=== PATIENT | male | born 1945 | race Caucasian/White ===

== ENCOUNTER → 2016-07-13 | Outpatient (CLI) | payer OTHER ==
[~2016-07-13] MED LIST: ALBU1AER9 INH; ASPEC81 PO; ATOR-26 PO; CARV3.122 PO; LISI-461 PO; MCRK20 PO; NTRGSL4 SL; PRT40 PO; SYMIN/8045 INH
[2016-07-13 18:40] LABS: MEAN CELL VOLUME 92.6 fL (80-100); MEAN CORPUSCULAR HEMOGLOBIN 31.4 pg (25-34); MEAN CORPUSCULAR HGB CONC 33.9 g/dl (32-36); MEAN PLATELET VOLUME 10.7 fL (7.4-10.4); PLATELET COUNT 350 K/uL (130-400); RED BLOOD COUNT 4.75 M/uL (4.7-6.1); WHITE BLOOD COUNT 16.54 K/uL (4.8-10.8)
[2016-07-13 18:48] LABS: ALT/SGPT 26 U/L (12-78); BLOOD UREA NITROGEN 27 mg/dl (7-18); BUN/CREATININE RATIO 22.3 (10-20); CALCIUM 8.7 mg/dl (8.5-10.1); CARBON DIOXIDE 29 mmol/L (21-32); CHLORIDE 102 mmol/L (98-107); CHOLESTEROL 109 mg/dl (0-200); GLUCOSE 81 mg/dl (70-99); POTASSIUM 3.4 mmol/L (3.5-5.1); SODIUM 142 mmol/L (136-145)
[2016-07-13 18:59] LABS: ALB/GLOB RATIO 0.8 (0.9-2); ALKALINE PHOSPHATASE 45 U/L (45-117); AST/SGOT 18 U/L (15-37); CHOLESTEROL/HDL RATIO 3.2; HDL CHOLESTEROL 34 mg/dl; LDL CHOLESTEROL CALCULATED 28 mg/dl; TRIGLYCERIDES 237 mg/dl (0-150); VERY LOW DENSITY LIPOPROT CALC 47 mg/dl
[2016-07-14 05:56] LABS: ESTIMATED AVERAGE GLUCOSE 143 mg/dl; HA1C FLAG Normal (Normal)
== END | disposition home or self-care (01) ==
LOC: C.LABBFT 13:00
PROVIDERS: ATTEND Internal Medicine
DX: E11.21 Type 2 diabetes mellitus with diabetic nephropathy (principal)

== ENCOUNTER → 2016-07-24 | Outpatient (CLI) | payer OTHER ==
--- NOTE | 2016-07-24 15:03 | DIAGNOSTIC IMAGING REPORT ---
CHEST 2 VIEWS ROUTINE CLINICAL HISTORY: J45.909 Asthmatic [id number] COMPARISON STUDY: 02/02/2014 FINDINGS: The cardiac and mediastinal contours are normal. There is no evidence of focal pulmonary consolidation. There is no evidence of failure. No pleural effusions are visualized.[ IMPRESSION: No active disease in the chest. Electronically signed by: Fly Loya M.D. 07/24/2016 3:01 PM Dictated Date/Time: 07/24/2016 3:01 PM
== END | disposition home or self-care (01) ==
LOC: C.RAD1850 14:14
PROVIDERS: ATTEND Physician Assistant Medical
DX: J45.909 Unspecified asthma, uncomplicated (principal)

== ENCOUNTER → 2016-10-26 | Outpatient (CLI) | payer OTHER ==
[2016-10-26 17:44] LABS: BLOOD UREA NITROGEN 10 mg/dl (7-18); BUN/CREATININE RATIO 10.1 (10-20); CARBON DIOXIDE 29 mmol/L (21-32); CHLORIDE 103 mmol/L (98-107); GLUCOSE 187 mg/dl (70-99); POTASSIUM 3.5 mmol/L (3.5-5.1); SODIUM 140 mmol/L (136-145)
== END | disposition home or self-care (01) ==
LOC: C.LABBFT 11:57
PROVIDERS: ATTEND Internal Medicine
DX: E87.6 Hypokalemia (principal); I50.22 Chronic systolic (congestive) heart failure

== ENCOUNTER → 2017-02-01 | Outpatient (CLI) | payer OTHER ==
[2017-02-01 17:07] LABS: BASO % 0.5 %; BASO ABS # 0.05 K/uL (0-0.2); COMPLETE YES; EOS % 3.7 %; HEMATOCRIT 41.8 % (42-52); IG% 0.2 %; LYMPH % 23.7 %; LYMPH ABS # 2.41 K/uL (1.2-3.4); MEAN CELL VOLUME 93.5 fL (80-100); MEAN CORPUSCULAR HEMOGLOBIN 30.4 pg (25-34); MEAN CORPUSCULAR HGB CONC 32.5 g/dl (32-36); MEAN PLATELET VOLUME 10.6 fL (7.4-10.4); MONO % 9.7 %; NEUT % 62.2 %; PLATELET COUNT 293 K/uL (130-400); RED BLOOD COUNT 4.47 M/uL (4.7-6.1); WHITE BLOOD COUNT 10.15 K/uL (4.8-10.8)
[2017-02-01 17:19] LABS: ALT/SGPT 21 U/L (12-78); BLOOD UREA NITROGEN 16 mg/dl (7-18); BUN/CREATININE RATIO 16.4 (10-20); CALCIUM 8.8 mg/dl (8.5-10.1); CARBON DIOXIDE 28 mmol/L (21-32); CHLORIDE 104 mmol/L (98-107); CHOLESTEROL 113 mg/dl (0-200); GLUCOSE 126 mg/dl (70-99); MAGNESIUM 1.8 mg/dl (1.8-2.4); POTASSIUM 4.3 mmol/L (3.5-5.1); SODIUM 139 mmol/L (136-145); TRIGLYCERIDES 262 mg/dl (0-150); VERY LOW DENSITY LIPOPROT CALC 52 mg/dl
[2017-02-01 17:23] LABS: ALB/GLOB RATIO 0.9 (0.9-2); ALKALINE PHOSPHATASE 50 U/L (45-117); AST/SGOT 20 U/L (15-37); CHOLESTEROL/HDL RATIO 3.6; HDL CHOLESTEROL 31 mg/dl; LDL CHOLESTEROL CALCULATED 30 mg/dl
[2017-02-01 17:41] LABS: RATIO 12.8 mcg/mg (0-30.0)
== END | disposition home or self-care (01) ==
LOC: C.LABBFT 11:52
PROVIDERS: ATTEND Internal Medicine Cardiovascular Disease
DX: E11.21 Type 2 diabetes mellitus with diabetic nephropathy (principal); I25.10 Atherosclerotic heart disease of native coronary artery without angina pectoris; E83.42 Hypomagnesemia; Z12.5 Encounter for screening for malignant neoplasm of prostate

== ENCOUNTER → 2017-08-09 | Outpatient (CLI) | payer OTHER ==
[~2017-08-09] MED LIST changes: -ASPEC81 PO; +ASPI-320 PO
[2017-08-09 16:38] LABS: BASO % 0.5 %; BASO ABS # 0.04 K/uL (0-0.2); EOS % 5.8 %; EOS ABS # 0.48 K/uL (0-0.5); HEMATOCRIT 41.4 % (42-52); HEMOGLOBIN 13.9 g/dL (14.0-18.0); IG# 0.02 K/uL (0.00-0.02); LYMPH % 23.3 %; LYMPH ABS # 1.93 K/uL (1.2-3.4); MEAN CELL VOLUME 92.2 fL (80-100); MEAN CORPUSCULAR HGB CONC 33.6 g/dl (32-36); MONO % 10.7 %; MONO ABS # 0.89 K/uL (0.11-0.59); NEUT % 59.5 %; NEUT ABS # 4.93 K/uL (1.4-6.5); PLATELET COUNT 301 K/uL (130-400); RED CELL DISTRIBUTION WIDTH CV 13.1 % (11.5-14.5); RED CELL DISTRIBUTION WIDTH SD 44.1 fL (36.4-46.3); WHITE BLOOD COUNT 8.29 K/uL (4.8-10.8)
[2017-08-09 16:46] LABS: ALBUMIN 3.4 gm/dl (3.4-5.0); ALT/SGPT 31 U/L (12-78); AST/SGOT 20 U/L (15-37); BLOOD UREA NITROGEN 10 mg/dl (7-18); CALCIUM 8.6 mg/dl (8.5-10.1); CARBON DIOXIDE 33 mmol/L (21-32); CREATININE 1.04 mg/dl (0.60-1.40); GLUCOSE 183 mg/dl (70-99); POTASSIUM 3.7 mmol/L (3.5-5.1); SODIUM 138 mmol/L (136-145)
[2017-08-09 16:57] LABS: ALKALINE PHOSPHATASE 58 U/L (45-117); CHOLESTEROL 99 mg/dl (0-200); LDL CHOLESTEROL CALCULATED 29 mg/dl; TOTAL PROTEIN 7.5 gm/dl (6.4-8.2)
[2017-08-10 06:17] LABS: HEMOGLOBIN A1C 7.3 % (4.5-5.6)
== END | disposition home or self-care (01) ==
LOC: C.LABBFT 13:21
PROVIDERS: ATTEND Internal Medicine
DX: D64.9 Anemia, unspecified (principal); E11.21 Type 2 diabetes mellitus with diabetic nephropathy; I25.10 Atherosclerotic heart disease of native coronary artery without angina pectoris

== ENCOUNTER 2024-04-05 13:54 | Inpatient (IN) ==
[2024-04-05] MEDS: SODIUM CHLORIDE 0.9% 1,000 ML IV ONE (14:05)
--- NOTE | 2024-04-05 14:08 | Emergency Department Note ---
History of Present Illness General Chief Complaint: Heart Alert Stated Complaint: POST CARDIAC ARREST Time Seen by Provider: 04/05/24 13:57 History of Present Illness Provider complaint: found unresponsive and stopped breathing Onset (ago): minute(s) 45 Timing confirmed by: other Place: other (car) Bystander CPR performed: Yes AED applied by bystander/blower and compressor assembler: Yes Shock advised: Yes Initial findings in the field: unresponsive ROSC in the field: Yes Associated injuries: No Known history of: CAD Treatments prior to arrival: intubation, chest compressions, defibrillated shocks # (3) and amiodarone (150 bolus) Patient was found unresponsive in his car 45 minutes ago. Bystander started CPR immediately. EMS was called. 3 defibrillations were given and amiodarone 150 mg was given. ROSC was achieved. Patient was intubated. Home Medications Medication Instructions Recorded Confirmed Type fluticasone furoate 200 1 inh inhalation Q24H 90 days #180 08/05/23 03/23/24 Rx mcg-vilanterol 25 mcg/dose ea inhalation powder (Breo Ellipta) warfarin 5 mg tablet 5 mg PO .COMPLEX #90 tabs 09/29/23 03/23/24 Rx warfarin 7.5 mg tablet 7.5 mg PO .weekly #50 tabs 09/29/23 03/23/24 Rx glimepiride 2 mg tablet 2 mg PO BID 90 days #180 tabs 12/07/23 03/23/24 Rx furosemide 40 mg tablet (Lasix) 40 mg PO QAM 12/28/23 03/23/24 History Cranberry Extra Strength 15,000 mg PO QAM 12/31/23 03/23/24 History aspirin 81 mg tablet,delayed 81 mg PO QAM 12/31/23 03/23/24 History release levothyroxine 50 mcg tablet 50 mcg PO QAM 12/31/23 03/23/24 History (Synthroid) magnesium oxide 500 mg PO BID 12/31/23 03/23/24 History metoprolol succinate 50 mg 50 mg PO QAM 12/31/23 03/23/24 History tablet,extended release 24 hr omeprazole 40 mg capsule,delayed 40 mg PO DAILY PRN Acid Reflux 12/31/23 03/23/24 History release atorvastatin 80 mg tablet (Lipitor) 80 mg PO QPM #90 tabs 03/07/24 03/23/24 Rx potassium chloride 10 mEq See Rx Instructions PO DAILY PRN 03/07/24 03/23/24 Rx tablet,extended release (Klor-Con) Heart Rate #90 tabs Allergies Allergy/AdvReac Type Severity Reaction Status Date / Time pollen extracts Allergy Intermediate Itchy/Watery Verified 03/23/24 14:18 Eyes/Congestion wool Allergy Intermediate Nasal Verified 03/23/24 14:18 Congestion; sneezing amoxicillin [From Augmentin] AdvReac Intermediate Diarrhea Verified 03/23/24 14:18 clavulanic acid AdvReac Intermediate Diarrhea Verified 03/23/24 14:18 [From Augmentin] lisinopril AdvReac Intermediate Cough/Light Verified 03/23/24 14:18 Headed Past Med/Surg History Problem List (Updated 04/05/24 @ 17:28 by Joao Bhat MD) Cardiac arrest (Acute) Unresponsive Metabolic acidosis Cardiac arrest Rhinitis medicamentosa Liposarcoma of peritoneum Otomycosis Right inguinal hernia Renal cyst, left Right groin mass Heart disease COPD (chronic obstructive pulmonary disease) HFrEF (heart failure with reduced ejection fraction) Otitis externa BPPV (benign paroxysmal positional vertigo) Direct inguinal hernia of right side Anemia (Acute) Asthma (Acute) Diabetic nephropathy (Acute) Diabetic retinopathy (Acute) Microalbuminuria (Acute) Mitral regurgitation (Acute) PAD (peripheral artery disease) (Chronic) Pulmonary hypertension (Acute) Hypomagnesemia Hypertension Ischemic cardiomyopathy Chronic systolic heart failure Hypothyroidism (Chronic) 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) Hyperlipidemia (Chronic) Coronary artery disease (Chronic) Anticoagulated on warfarin Pulmonary embolism Medical History PAD (peripheral artery disease) Hypothyroidism HTN (hypertension) CAD (coronary artery disease) COPD (chronic obstructive pulmonary disease) Type 2 diabetes mellitus Chronic systolic heart failure [facility] Asthma Anticoagulated on warfarin History of anemia Bronchitis Thromboembolism of lower extremity artery Toe infection hx Embolism, arterial, leg, right Surgical History History of orchiectomy (01/12/24) Robotic Assisted Laparoscopic Incarcerated Right Inguinal Hernia Repair Converted to Open, Right Orchiectomy(Right) - Russell Hoang, DO, FACS H/O right inguinal hernia repair (01/12/24) Robotic Assisted Laparoscopic Incarcerated Right Inguinal Hernia Repair Converted to Open, Right Orchiectomy(Right) - Russell Hoang, DO, FACS Hx of oral surgery Teeth removed Hx of cardiac catheterization 2013 Deep vein blood clot of right lower extremity hx Thromboendarterectomy preformed in 2003 [facility] Family History Father Congestive heart failure (CHF) Pancreatic adenocarcinoma Permanent atrial fibrillation Emphysema of lung Brother Asthma Mother No problems noted. Other Clotting disorder Diabetes Denies family history of Prostate cancer Colorectal cancer Social History Smoking Status: Unknown if ever smoked Tobacco Type: Smokeless Tobacco (Dip or Chew) Second Hand Exposure: No; Do You Dip or Chew Tobacco: Yes (Advised); Hx Alcohol Use: No Hx Substance Use: No Preferred Language: Vietnamese Communication Ability: Effective Visual Impairment: No Limitations Hearing Ability: Normal Research Development Director Required: No Beliefs That Will Affect Care: None marital status: Current Living Situation: Alone current occupational status: retired Feels Safe at Home: Yes Childhood Exposure to Second-Hand Smoke: No Diet: low carbohydrate caffeine: Yes during the past year weight has: remained stable Seatbelt Use: always Sunscreen Use: No Assistive Devices: Glasses and Other Physical Exam 2 Vital Signs: Vital Signs - 24 hr 04/05/24 13:58 04/05/24 14:05 Pulse Rate 91 H 88 Respiratory Effort / Characteristics Mechanically Venti lated Blood Pressure 97/74 L Blood Pressure Lupe n 81 Pulse Oximetry 100 Oxygen Delivery Me thod Mechanical Vent Sepsis New/Unexpla ined Change in Men favian Status N/A Sepsis Action Take n by Nursing No Action Required Physical Exam: Physical Exam GENERAL: Intubated. HENT: Exam performed. - Head: Normocephalic and atraumatic. CV: Normal rate, regular rhythm, normal heart sounds and intact distal pulses. There is no peripheral edema. Palpable radial pulses bue. PULM/CHEST: Rhonchi bilaterally. ABD: The abdomen is soft. There is no tenderness. Course Course 1350: Received a call from EMS that a patient was found unresponsive received 3 shocks and now has ROSC. Heart alert called. 1357: The patient was evaluated in room B1. A complete history and physical exam was performed Cardiac monitoring: An order was placed for continuous cardiac monitoring. The monitor shows a rate of 90 with sinus rhythm interpreted by me 1410: Vital signs stable on ventilator. Dr. Carlton at bedside. Dr. Carlton and I decided that we will take the patient to CT to rule out ICH and if that is negative would send them to Distributor Operator. Dr. Carlton recommends amiodarone drip for the patient. 1421: CT of the head viewed by me shows no ICH. Patient be sent to Distributor Operator. Administered Medications Sodium Chloride (Nss) 1,000 mls @ 999 mls/hr IV .Q1H1M ONE Stop: 04/05/24 15:02 Last Admin: 04/05/24 14:05 Dose: 999 mls/hr Documented By: PADDY Medical Decision Making Laboratory Data Attestation: I reviewed the patient's lab results. 04/05/24 14:04 04/05/24 16:28 Imaging Data Attestation: I personally reviewed and interpreted this imaging study as follows: My Impression: CT head: No ICH Chest x-ray: Endotracheal tube in place. Radiologist's Impression: Chest X-Ray 04/05/24 13:58 XR chest 1V portable HISTORY: 78 years-old Male rosc acute respiratory failure COMPARISON: 01/05/2024 TECHNIQUE: Supine AP view of the chest FINDINGS: Endotracheal tube overlies the midline, 5.7 cm superior to the indira. The cardiac silhouette is mildly enlarged. Lungs appear clear. No pneumothorax, pleural effusion or airspace consolidation. The bones appear grossly intact. IMPRESSION: 1. Endotracheal tube terminates 5.7 cm superior to the indira. 2. The lungs appear clear. 3. No pneumothorax. ACT 112: Negative or not required by law. The above report was generated using voice recognition software. It may contain grammatical, syntax or spelling errors. Electronically signed by: Dario Hung M.D. 04/05/2024 2:[address] 04/05/24 13:59 CT OF THE HEAD WITHOUT CONTRAST CLINICAL HISTORY: code blue COMPARISON STUDY: No previous studies for comparison. CT DOSE: 713.21 mGy.cm TECHNIQUE: Helical axial images of the head were obtained without IV contrast. Automated exposure control was utilized for the study. A dose lowering technique was utilized adhering to the principles of ALARA. FINDINGS: No acute intracranial hemorrhage, midline shift or mass effect is present. The ventricular system is unremarkable. The basal cisterns are patent. No extra-axial collections are present. There are no findings to suggest acute dural sinus thrombosis or acute territorial infarct. Several hypodensities within the bilateral cerebellar hemispheres measuring up to 1.6 cm favor old infarcts. There is a small amount of fluid within the bilateral masters cells. There are no calvarial fractures. There is minimal sinus mucosal thickening. IMPRESSION: 1. No acute intracranial findings. 2. 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 ACT 112: Negative or not required by law. Electronically signed by: Jose Garvey M.D. 04/05/2024 2:37 PM ECG Data Attestation: I personally reviewed and interpreted this ECG as follows: Additional Comments: Sinus rhythm with rate of 91. SD QRS and QTc intervals within normal limits. No ST elevation or ST depression. [facility] Narrative 1350: Received a call from EMS that a patient was found unresponsive received 3 shocks and now has ROSC. Heart alert called. 1357: The patient was evaluated in room B1. A complete history and physical exam was performed Cardiac monitoring: An order was placed for continuous cardiac monitoring. The monitor shows a rate of 90 with sinus rhythm interpreted by me 1410: Vital signs stable on ventilator. Dr. Carlton at bedside. Dr. Carlton and I decided that we will take the patient to CT to rule out ICH and if that is negative would send them to Distributor Operator. Dr. Carlton recommends amiodarone drip for the patient. 1421: CT of the head viewed by me shows no ICH. Patient be sent to Distributor Operator. Impression & Plan Cardiac arrest Critical Care Time Critical Care Time: Yes Total Critical Care Time: 35 I have personally spent greater than 35 minutes of critical care time in the direct management of this patient. This includes bedside care, interpretation of diagnostic studies, and testing, discussion with consultants, patient, and family members, and other required patient management activities. This 35 minutes is in excess of all separately billable procedures. Discharge Plan Visit Data Chief Complaint: Heart Alert Stated Complaint: POST CARDIAC ARREST ED Provider: Joao Bhat Discharge Problem: Cardiac arrest Patient Disposition: Admitted As Inpatient Discharge Instructions Interventions: ED Discharge Assessment Last Done: 04/05/24 14:35
[2024-04-05] MEDS ORDERED: 0.2 MICRON FILTER SET 1 EACH IV ONE ×2 (14:09→19:40)
[2024-04-05] MEDS: AMIODARONE / D5W 360 MG/200 ML BAG IV ONE (14:12)
[2024-04-05 14:18] LABS: iSTAT Creatinine 1.2 mg/dl (0.6-1.3); iSTAT Hemoglobin 14.6 g/dl (14.0-18.0); iSTAT Ionized Calcium 1.09 mmol/l (1.12-1.32); iSTAT Potassium 3.4 mmol/L (3.3-5.0)
[2024-04-05 14:18] LABS: Hematocrit (blood only) 41.2 % (42.0-52.0); Hemoglobin 13.7 g/dl (14.0-18.0); Mean Corpuscular Hemoglobin 30.3 pg (25.0-34.0); Mean Corpuscular Hgb Conc 33.3 g/dL (32.0-36.0); Mean Corpuscular Volume 91.2 fL (80.0-100.0); Mean Platelet Volume 9.9 fL (9.4-12.4); Platelet Count 263 K/uL (130-400); RDW Coefficient of Variation 12.2 % (11.5-14.5); RDW Standard Deviation 40.8 fL (36.4-46.3); Red Blood Count 4.52 M/uL (4.70-6.10); White Blood Count 12.64 K/ul (4.8-10.8)
[2024-04-05 14:19] LABS: Base Excess VBG -7.9 mEq/L; HCO3 VBG 20 mmol/L; Oxygen Saturation VBG 89.6 %; PCO2 VBG 47 mmHg (38-50); PO2 VBG 63 mmHg; pH VBG 7.23 (7.36-7.41)
--- NOTE | 2024-04-05 14:22 | XRay Report ---
XR chest 1V portable HISTORY: 78 years-old Male rosc acute respiratory failure COMPARISON: 01/05/2024 TECHNIQUE: Supine AP view of the chest FINDINGS: Endotracheal tube overlies the midline, 5.7 cm superior to the indira. The cardiac silhouette is mild ly enlarged. Lungs appear clear. No pneumothorax, pleural effusion or airspace consolidation. The bon es appear grossly intact. IMPRESSION: 1. Endotracheal tube terminates 5.7 cm superior to the indira. 2. The lungs appear clear. 3. No pneumothorax. ACT 112: Negative or not required by law. The above report was generated using voice recognition software. It may contain grammatical, syntax o r spelling errors. Electronically signed by: Dario Hung M.D. 04/05/2024 2:21 PM
--- NOTE | 2024-04-05 14:32 | History & Physical Report ---
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 unresponsive post-cath Unclear eitology head CT negative for acute changes, did show suspected small old infarcts within bilateral cerebral hemispheres EKG showed concern for inferior ST elevation, but no significant ST abnormalities, new RBBB CXR negative for acute findings - lactate 7.3 -> 3.2 - leukocytosis (WBC 12.64) with left shift - troponin 75.5 -> trend - cardiac cath showed unchanged severe three-vessel CAD preserved cardiac output with minimally elevated right and left filling pressures on right heart cath - CAD chronic and no targets for PCI, consider CABG - admit to ICU and cardiology following - TSH, ammonia, drug screen, UA, blood cultures ordered - maintain MAPs > 65 - continue amiodarone and repeat echo as per cardiology recommendations - concern for seizure like activity - Ativan, EEG, and MRI ordered (2) Unresponsive: Plan: secondary to #1 - concern for seizure like activity - 2mg IV Ativan ordered post cath - EEG and MRI ordered (3) Metabolic acidosis: Plan: - VBG 7.23/47/20 - ABG 7.32/42/22 - lactate 7.3 -> 3.2 - anion gap 13 - tx above (4) Ischemic cardiomyopathy: Plan: Severe multivessel CAD s/p thromboendarterectomy 2002 - cardiac cath 2013 showed proximal LAD 50 to 60% with proximal to mid LAD 100%, D1 70%, D3 occluded, large septal agent based modeler with 80% proximal stenosis, proximal circumflex with sequential 98% stenotic lesions, AV groove circumflex 100%, proximal RCA 99% - Echo 2022 showing moderately dilated left ventricle with severely reduced systolic function, EF 25 to 30%, akinesis of mid and inferior lateral wall, global hypokinesis, mild LVH, mild mitral regurg - repeat cath showed unchanged CAD, no emergent need for PCI, cardiology recommending future CABG - on Coumadin, metoprolol, atorvastatin 80 mg at home; held (5) HFrEF (heart failure with reduced ejection fraction): Plan: see echo above - hold Lasix and Jardiance (6) Hypertension: Plan: currently hypotensive with above - Hold home hypertension medications (7) 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: Plan: Controlled on Jardiance at home - Most recent A1C 8.1 - SSI with target BSG range 110-140mg/dL, CF 25, carb ratio 8 - BSG ACHS if eating, q6h if npo Plan Chronic stable diagnoses: Hypothyroidism - recent TSH WNL, hold levothyroxine liposarcoma - s/p right inguinal hernia repair 01/2024, oncology follow up VTE ppx: likely to start Heparin drip tomorrow 04/06 Diet: NPO as unresponsive Dispo: ICU post cath - Unable to reach patient's family/friends. One friend in chart, tried to call and straight to voicemail. Admission and Anticipated Discharge Date Admission Date: 04/05/24 History of Present Illness Chief Complaint: heart alert Primary Care Provider: Suleman Wren DO Patient is a 78-year-old male with a past medical history of HFrEF, ischemic cardiomyopathy, severe multivessel CAD, PAD, mitral regurg, hypertension, type II DM, BPPV, hypothyroidism, newly diagnosed liposarcoma. He presents today via EMS after he was found unresponsive in his car; after CPR, 3 shocks, intubation, and 150mg amiodarone. He was brought in post ROSC as a heart alert, taken to CT (head CT negative), and then taken immediately to the Dialysis Patient Care Technician. Patient was assessed in the ICU after cardiac cath, no PCI placement. He is on ventilator, unresponsive. Pupils are pinpoint, no gag reflex, posturing. Discussed with software technical lead, to complete seizure workup, 2 Mg Ativan ordered. Patient has no family listed in chart, only a friend listed. Attempted to contact and went straight to voicemail, unable to reach. Allergies Allergy/AdvReac Type Severity Reaction Status Date / Time pollen extracts Allergy Intermediate Itchy/Watery Verified 03/23/24 14:18 Eyes/Congestion wool Allergy Intermediate Nasal Verified 03/23/24 14:18 Congestion; sneezing amoxicillin [From Augmentin] AdvReac Intermediate Diarrhea Verified 03/23/24 14:18 clavulanic acid AdvReac Intermediate Diarrhea Verified 03/23/24 14:18 [From Augmentin] lisinopril AdvReac Intermediate Cough/Light Verified 03/23/24 14:18 Headed Home Medications Medication Instructions Recorded Confirmed Type fluticasone furoate 200 1 inh inhalation Q24H 90 days #180 08/05/23 03/23/24 Rx mcg-vilanterol 25 mcg/dose ea inhalation powder (Breo Ellipta) warfarin 5 mg tablet 5 mg PO .COMPLEX #90 tabs 09/29/23 03/23/24 Rx warfarin 7.5 mg tablet 7.5 mg PO .weekly #50 tabs 09/29/23 03/23/24 Rx glimepiride 2 mg tablet 2 mg PO BID 90 days #180 tabs 12/07/23 03/23/24 Rx furosemide 40 mg tablet (Lasix) 40 mg PO QAM 12/28/23 03/23/24 History Cranberry Extra Strength 15,000 mg PO QAM 12/31/23 03/23/24 History aspirin 81 mg tablet,delayed 81 mg PO QAM 12/31/23 03/23/24 History release levothyroxine 50 mcg tablet 50 mcg PO QAM 12/31/23 03/23/24 History (Synthroid) magnesium oxide 500 mg PO BID 12/31/23 03/23/24 History metoprolol succinate 50 mg 50 mg PO QAM 12/31/23 03/23/24 History tablet,extended release 24 hr omeprazole 40 mg capsule,delayed 40 mg PO DAILY PRN Acid Reflux 12/31/23 03/23/24 History release atorvastatin 80 mg tablet (Lipitor) 80 mg PO QPM #90 tabs 03/07/24 03/23/24 Rx potassium chloride 10 mEq See Rx Instructions PO DAILY PRN 03/07/24 03/23/24 Rx tablet,extended release (Klor-Con) Heart Rate #90 tabs Past Med/Surg History Problem List (Updated 04/05/24 @ 17:28 by Joao Bhat MD) Cardiac arrest (Acute) Unresponsive Metabolic acidosis Cardiac arrest Rhinitis medicamentosa Liposarcoma of peritoneum Otomycosis Right inguinal hernia Renal cyst, left Right groin mass Heart disease COPD (chronic obstructive pulmonary disease) HFrEF (heart failure with reduced ejection fraction) Otitis externa BPPV (benign paroxysmal positional vertigo) Direct inguinal hernia of right side Anemia (Acute) Asthma (Acute) Diabetic nephropathy (Acute) Diabetic retinopathy (Acute) Microalbuminuria (Acute) Mitral regurgitation (Acute) PAD (peripheral artery disease) (Chronic) Pulmonary hypertension (Acute) Hypomagnesemia Hypertension Ischemic cardiomyopathy Chronic systolic heart failure Hypothyroidism (Chronic) 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) Hyperlipidemia (Chronic) Coronary artery disease (Chronic) Anticoagulated on warfarin Pulmonary embolism Medical History PAD (peripheral artery disease) Hypothyroidism HTN (hypertension) CAD (coronary artery disease) COPD (chronic obstructive pulmonary disease) Type 2 diabetes mellitus Chronic systolic heart failure [facility] Asthma Anticoagulated on warfarin History of anemia Bronchitis Thromboembolism of lower extremity artery Toe infection hx Embolism, arterial, leg, right Surgical History History of orchiectomy (01/12/24) Robotic Assisted Laparoscopic Incarcerated Right Inguinal Hernia Repair Converted to Open, Right Orchiectomy(Right) - Russell Hoang DO, FACS H/O right inguinal hernia repair (01/12/24) Robotic Assisted Laparoscopic Incarcerated Right Inguinal Hernia Repair Converted to Open, Right Orchiectomy(Right) - Russell Hoang DO, FACS Hx of oral surgery Teeth removed Hx of cardiac catheterization 2013 Deep vein blood clot of right lower extremity hx Thromboendarterectomy preformed in 2003 [facility] Family History Father Congestive heart failure (CHF) Pancreatic adenocarcinoma Permanent atrial fibrillation Emphysema of lung Brother Asthma Mother No problems noted. Other Clotting disorder Diabetes Denies family history of Prostate cancer Colorectal cancer Social History Smoking Status: Unknown if ever smoked Tobacco Type: Smokeless Tobacco (Dip or Chew) Second Hand Exposure: No; Do You Dip or Chew Tobacco: Yes (Advised); Preferred Language: Portuguese Communication Ability: intubated Visual Impairment: No Limitations Hearing Ability: Normal Warning Analyst Required: No Beliefs That Will Affect Care: None marital status: Current Living Situation: Alone Current Living Situation Comment: unable to assess at this time current occupational status: retired Feels Safe at Home: Yes Childhood Exposure to Second-Hand Smoke: No Diet: low carbohydrate caffeine: Yes during the past year weight has: remained stable Seatbelt Use: always Sunscreen Use: No Assistive Devices: Glasses and Other Review of Systems Review of Systems: Unable to obtain as patient is unresponsive Physical Exam Physical Exam: The patient is unresponsive, on ventilator. Withdrawals to painful stimuli. Constitutional: + mechanically ventilated Eyes: + pinpoint pupils Results & Data Results & Data Vital Signs (Past 12 Hours) Vital Signs Temp Pulse Pulse Resp BP BP Pulse Ox 04/05/24 14:30 04/05/24 14:27 80 22 89/56 L 100 04/05/24 14:15 79 21 100/62 100 04/05/24 14:05 88 04/05/24 13:58 36.4 C 91 H 20 97/74 L 100 O2 Del Method 04/05/24 14:30 Mechanical Vent 04/05/24 14:27 Mechanical Vent 04/05/24 14:15 Mechanical Vent 04/05/24 14:05 04/05/24 13:58 Mechanical Vent Code Status & VTE Plan VTE Prophylaxis Plan VTE Prophylaxis will be ordered: Yes Supervising Physician Co-Signing Physician Notes Patient seen and examined, chart reviewed, case discussed with Leann Burns PA-C and I agree with the assessment and plan as above except as otherwise noted Labs and images reviewed Charly is a 78-year-old male with past medical history of multivessel CAD, ischemic cardiomyopathy 25-30%, type II DM who had a witnessed arrest [id number] while at the 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 Had immediate bystander CPR, AED was applied with 3 shocks, intubated in the field and arrived in sinus rhythm post ROSC. Patient was taken emergently to the Dialysis Patient Care Technician as a heart alert. Prior cath 2013: EF less than 20%, 50-60% proximal LAD, proximal to mid LAD 100%, mid to distal LAD filling via collaterals, D1 70%, D3 occluded, large septal agent based modeler with 80% proximal stenosis, proximal circumflex with 98% stenotic lesions, AV groove circumflex 100% filling via collaterals, dominant RCA, proximal RCA 99% with [id number] collaterals, LVEDP 37 mmHg, PA pressure 74/38 mean 50 at the time. EF remained significantly reduced although slightly improved on goal-directed medical therapy on subsequent follow-up.Seen at the bedside. History is limited due to ETT and cognitive status. Patient with some twitching of the lower extremities concerning for seizure activity for which she received 2 mg of Ativan. Patient seen at bedside during EEG, no overt epileptiform activity noted. Cardiac cath showed severe three-vessel disease unchanged on repeat cath, no targets for PCI. Potential CABG candidate pending clinical progression. Appreciate cardiology care and recommendations. Agree with recommendations and management as above. PG Care Time/CCT Total # of Minutes Spent Total Time Spent with Patient: Total time spent is greater than 50% in coordination of care (as documented) at patient's floor/unit and/or counseling patient: Coding Level of Care Code 64710 INT INP/OBS CARE 3/75MIN Diagnoses Cardiac arrest I46.9 Unresponsive R41.89 Metabolic acidosis E87.20 Ischemic cardiomyopathy I25.5 HFrEF (heart failure with reduced ejection fraction) I50.20 Hypertension I10 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 E11.59
--- NOTE | 2024-04-05 14:37 | Cardiology Consultation ---
Date of Consultation April 05, 2024 Assessment & Plan (1) Cardiac arrest: 2. Chronic multivessel CAD 3. ICM EF 25% 4. 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 Liposarcoma 6. Concern for anoxic brain injury Severe three-vessel CAD unchanged on repeat cardiac catheterization today. Hemodynamics favorable with preserved cardiac output and only minimally elevated right and left filling pressures on right heart cath. CAD is chronic and no targets for PCI. Pending clinical course reevaluation for CABG could be considered. For now supportive care from a cardiac standpoint. Continue amiodarone infusion. Trend troponin, repeat echo in the morning. History of Present Illness History of Present Illness Mr. Tsai is a 78-year-old man with a history of severe, unrevascularized mult ivessel CAD, ischemic cardiomyopathy EF 25-30%/HFrEF, type 2 diabetes seen emergently in the ED after [id number] arrest. Per report from ED physician patient had witnessed arrest at 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 Reportedly had immediate bystander CPR and received 3 defibrillations from AED before ROSC. Intubated in the field. There was concern for inferior ST elevation on ECG in the field but on arrival no significant ST abnormalities, does have new right bundle branch block. Systolic pressures 80s to 90s. Chest x-ray clear. Head CT with no obvious intracranial bleeding. Other medical issues include recently diagnosed liposarcoma requiring strangulated right inguinal hernia repair 01/2024, awaiting further oncology management. Prior right lower extremity arterial thrombus in 2002 requiring vascular surgery and on chronic anticoagulation with Coumadin. Has mild mitral regurgitation, dyslipidemia, COPD. Allergies Allergy/AdvReac Type Severity Reaction Status Date / Time pollen extracts Allergy Intermediate Itchy/Watery Verified 03/23/24 14:18 Eyes/Congestion wool Allergy Intermediate Nasal Verified 03/23/24 14:18 Congestion; sneezing amoxicillin [From Augmentin] AdvReac Intermediate Diarrhea Verified 03/23/24 14:18 clavulanic acid AdvReac Intermediate Diarrhea Verified 03/23/24 14:18 [From Augmentin] lisinopril AdvReac Intermediate Cough/Light Verified 03/23/24 14:18 Headed Home Medications Medication Instructions Recorded Confirmed Type fluticasone furoate 200 1 inh inhalation Q24H 90 days #180 08/05/23 03/23/24 Rx mcg-vilanterol 25 mcg/dose ea inhalation powder (Breo Ellipta) warfarin 5 mg tablet 5 mg PO .COMPLEX #90 tabs 09/29/23 03/23/24 Rx warfarin 7.5 mg tablet 7.5 mg PO .weekly #50 tabs 09/29/23 03/23/24 Rx glimepiride 2 mg tablet 2 mg PO BID 90 days #180 tabs 12/07/23 03/23/24 Rx furosemide 40 mg tablet (Lasix) 40 mg PO QAM 12/28/23 03/23/24 History Cranberry Extra Strength 15,000 mg PO QAM 12/31/23 03/23/24 History aspirin 81 mg tablet,delayed 81 mg PO QAM 12/31/23 03/23/24 History release levothyroxine 50 mcg tablet 50 mcg PO QAM 12/31/23 03/23/24 History (Synthroid) magnesium oxide 500 mg PO BID 12/31/23 03/23/24 History metoprolol succinate 50 mg 50 mg PO QAM 12/31/23 03/23/24 History tablet,extended release 24 hr omeprazole 40 mg capsule,delayed 40 mg PO DAILY PRN Acid Reflux 12/31/23 03/23/24 History release atorvastatin 80 mg tablet (Lipitor) 80 mg PO QPM #90 tabs 03/07/24 03/23/24 Rx potassium chloride 10 mEq See Rx Instructions PO DAILY PRN 03/07/24 03/23/24 Rx tablet,extended release (Klor-Con) Heart Rate #90 tabs Patient History Medical History PAD (peripheral artery disease) Hypothyroidism HTN (hypertension) CAD (coronary artery disease) COPD (chronic obstructive pulmonary disease) Type 2 diabetes mellitus Chronic systolic heart failure [facility] Cardiology Asthma Anticoagulated on warfarin History of anemia Bronchitis Thromboembolism of lower extremity artery Toe infection hx Embolism, arterial, leg, right Surgical History History of orchiectomy (01/12/24) Robotic Assisted Laparoscopic Incarcerated Right Inguinal Hernia Repair Converted to Open, Right Orchiectomy(Right) - Russell Hoang DO, FACS H/O right inguinal hernia repair (01/12/24) Robotic Assisted Laparoscopic Incarcerated Right Inguinal Hernia Repair Converted to Open, Right Orchiectomy(Right) - Russell Hoang DO, FACS Hx of oral surgery Teeth removed Hx of cardiac catheterization 2013 Deep vein blood clot of right lower extremity hx Thromboendarterectomy preformed in 2003 [facility] Family History Father Congestive heart failure (CHF) Pancreatic adenocarcinoma Permanent atrial fibrillation Emphysema of lung Brother Asthma Mother No problems noted. Other Clotting disorder Diabetes Denies family history of Prostate cancer Colorectal cancer Social History Smoking Status: Unknown if ever smoked Tobacco Type: Smokeless Tobacco (Dip or Chew) Second Hand Exposure: No; Do You Dip or Chew Tobacco: Yes (Advised); Preferred Language: Danish Communication Ability: intubated Visual Impairment: No Limitations Hearing Ability: Normal Locker Attendant Required: No Beliefs That Will Affect Care: None marital status: Current Living Situation: Alone Current Living Situation Comment: unable to assess at this time current occupational status: retired Feels Safe at Home: Yes Childhood Exposure to Second-Hand Smoke: No Diet: low carbohydrate caffeine: Yes during the past year weight has: remained stable Seatbelt Use: always Sunscreen Use: No Assistive Devices: Glasses and Other Review of Systems Review of Systems: Unobtainable due to endotracheal tube Physical Exam Constitutional: + mechanically ventilated Eyes: + anicteric sclerae Respiratory: Auscultation: lungs clear to auscultation bilaterally Cardiovascular: Rate/Rhythm: regular rate Heart Sounds: no murmur Vessels: femoral pulses present Gastrointestinal (Abdomen): Inspection/Auscultation: abdomen normal to inspection Percussion/Palpation: abdomen soft Skin: no rashes, warm and dry Neurologic: + obtunded Psychiatric: Unresponsive Results & Data Vital Signs (Past 12 Hours) Vital Signs Temp Pulse Resp BP Pulse Ox O2 Del Method 04/05/24 14:05 88 04/05/24 13:58 97.6 F 91 H 20 97/74 L 100 Mechanical Vent PG Care Time/CCT Total # of Minutes Spent Total Time Spent with Patient: Total time spent is greater than 50% in coordination of care (as documented) at patient's floor/unit and/or counseling patient: Coding Level of Care Code 77049 ER DEPT VISIT HIGH LVL 5 Diagnoses Cardiac arrest I46.9
--- NOTE | 2024-04-05 14:40 | CT Scan Report ---
CT OF THE HEAD WITHOUT CONTRAST CLINICAL HISTORY: code blue COMPARISON STUDY: No previous studies for comparison. CT DOSE: 713.21 mGy.cm TECHNIQUE: Helical axial images of the head were obtained without IV contrast. Automated exposure con trol was utilized for the study. A dose lowering technique was utilized adhering to the principles o f ALARA. FINDINGS: No acute intracranial hemorrhage, midline shift or mass effect is present. The ventricular system is unremarkable. The basal cisterns are patent. No extra-axial collections are present. There are no findings to suggest acute dural sinus thrombosis or acute territorial infarct. Several hypoden sities within the bilateral cerebellar hemispheres measuring up to 1.6 cm favor old infarcts. There i s a small amount of fluid within the bilateral masters cells. There are no calvarial fractures. There is minimal sinus mucosal thickening. IMPRESSION: 1. No acute intracranial findings. 2. 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 ACT 112: Negative or not required by law. Electronically signed by: Jose Garvey M.D. 04/05/2024 2:37 PM
[2024-04-05 14:41] LABS: Alanine Aminotransferase 51 U/L (7-52); Albumin Level 3.6 gm/dl (3.4-5.0); Alkaline Phosphatase 68 U/L (34-104); Anion Gap 13 (3-11); Aspartate Aminotransferase 66 U/L (13-39); BUN Creatinine Ratio 11.4 (10-20); Bilirubin Direct 0.2 mg/dl (0-0.2); Bilirubin,Total 0.7 mg/dl (0.2-1.0); Blood Urea Nitrogen 15 mg/dl (6-23); Calcium 8.7 mg/dl (8.6-10.3); Carbon Dioxide 22 mmol/L (21-32); Chloride 100 mmol/L (98-107); Glucose 309 mg/dl (70-99(Fasting)); Lipase 52 U/L (11-82); Potassium 3.5 mmol/L (3.5-5.1); Sodium 135 mmol/L (136-145)
[2024-04-05 14:44] LABS: Basophils % (auto) 0.8 %; Eosinophils # (auto) 0.15 K/uL (0.00-0.50); Eosinophils % (auto) 1.2 %; Immature Granulocytes # (auto) 0.64 K/uL (0.01-0.20); Immature Granulocytes % (auto) 5.1 %; Lymphocytes # (auto) 3.93 K/uL (1.20-3.40); Lymphocytes % (auto) 31.1 %; Monocytes # (auto) 1.38 K/uL (0.11-0.59); Monocytes % (auto) 10.9 %; Neutrophils # (auto) 6.44 K/uL (1.40-6.50); Neutrophils % (auto) 50.9 %
[2024-04-05 14:45] LABS: Troponin I High Sensitivity 75.5 pg/ml (0-20)
[2024-04-05 14:49] LABS: INR 2.9 (0.9-1.1); Partial Thromboplastin Ratio 1.3; Partial Thromboplastin Time 36 Seconds (21-31); Prothrombin Time 28.2 Seconds (9.0-12.0)
[2024-04-05] MEDS: NITROGLYCERIN/D5W 100MCG/ML 20ML SYR ONE (15:07)
[2024-04-05] MEDS: HEPARIN (PORCINE) 1000 UNIT/ML 10 ML (CATH LAB USE ONLY) ONE (15:07)
[2024-04-05] MEDS: fentaNYL citrate PF 100 MCG/2 ML VIAL ONE (15:07)
[2024-04-05] MEDS: niCARdipine 2,000 MCG/20 ML SYR ONE (15:07)
[2024-04-05] MEDS: MIDAZOLAM HCL 1 MG/ML 2ML VIAL ONE (15:07)
[2024-04-05] MEDS: OPTIRAY 350 ONE (15:08)
[2024-04-05 15:26] LABS: iSTAT Arterial Blood Gas HCO3 22 meg/L (19-24); iSTAT Arterial Blood Gas pCO2 42 mmHg (35-46); iSTAT Arterial Blood Gas pH 7.32 (7.35-7.45); iSTAT Arterial Blood Gas pO2 202 mmHg (80-95); iSTAT Carbon Dioxide 23 mmol/L (24-31); iSTAT Hematocrit 36 % (42-52); iSTAT Hemoglobin 12.2 g/dl (14.0-18.0); iSTAT Potassium 3.7 mmol/L (3.3-5.0); iSTAT Sodium 137 mmol/L (135-144)
[2024-04-05 15:26] LABS: iSTAT Arterial Blood Gas HCO3 25 meg/L (19-24); iSTAT Arterial Blood Gas pCO2 54 mmHg (35-46); iSTAT Arterial Blood Gas pH 7.27 (7.35-7.45); iSTAT Arterial Blood Gas pO2 37 mmHg (80-95); iSTAT Carbon Dioxide 27 mmol/L (24-31); iSTAT Hematocrit 38 % (42-52); iSTAT Hemoglobin 12.9 g/dl (14.0-18.0); iSTAT Potassium 3.9 mmol/L (3.3-5.0); iSTAT Sodium 137 mmol/L (135-144)
[2024-04-05] MEDS: LORazepam 2 MG/1 ML VIAL IV STA (15:50)
[2024-04-05] MEDS: RAPID SEQUENCE INDUCTION BAG ONE (16:22)
--- NOTE | 2024-04-05 16:29 | Procedure Note ---
Procedure Note Date of Service April 05, 2024 Left FEMORAL CENTRAL LINE PROCEDURE NOTE: Procedure: Femoral Central Line Placement Indication: Central Drug Administration, Poor Venous Access, Multiple Lab Draws Necessary, etc. Anesthesia: None Emergency consent was implied as the patient was obtunded and on the ventilator. A time-out was completed verifying correct patient, procedure, site, positioning, and implants(s) or special equipment if applicable. Patients left groin was cleansed and draped in the typical sterile fashion using Chloraprep. A 6 Maltese femoral sheath was already in place in the left femoral vein. This area was cleansed with ChloraPrep and a sterile drape was placed over top. Then using aseptic technique, a guidewire was inserted into the femoral sheath and the femoral sheath was removed with ease. The sheath was found to be intact. The triple-lumen catheter was then placed over the wire using Seldinger technique without any resistance. The wire was removed. 3 claves were placed. The catheter was flushed with saline. Triple-lumen catheter was sutured in place with two 2-0 silk sutures. A sterile dressing was placed over the triple- lumen catheter. [facility] Procedure Codes (Charges) Tubes, Drains, and Vasc Access Procedure 1: Tubes, Drains, and Vasc Access: [id number] Place catheter in vein superior or inferior vena cava Coding CPT Codes Tubes, Drains, and Vasc Access - Tubes, Drains, and Vasc Access: [id number] Place catheter in vein superior or inferior vena cava ([id number]) Additional Codes Date of Service (PG.SURGERY)
[2024-04-05] MEDS: ICU Protocol for HYPERglycemia SCH (16:39)
--- NOTE | 2024-04-05 16:44 | Critical Care Consultation ---
Date of Consultation April 05, 2024 Assessment & Plan (1) Cardiac arrest: (2) Unresponsive: (3) Metabolic acidosis: (4) Coronary artery disease: Plan 78-year-old male with a past medical history of diabetes, systolic cardiomyopathy, coronary artery disease, peripheral artery disease, COPD and asthma presenting to the hospital due to a cardiac arrest. Neurologic: Patient completely unresponsive to commands, but does withdraw to painful stimuli. Will obtain EEG and MRI of the brain. Prognosis at this time is quite guarded. Will limit sedation to follow his neurostatus closely. Maintain euthymia. Maintain euglycemia. Head of the bed above 35 degrees. Check urine drug screen. Check TSH and ammonia. Pulmonary: Patient currently intubated for airway protection. On minimal ventilatory support. Obtain ABG now. Chest x-ray demonstrates that the endotracheal tube is a bit high. Will advance by about 1.[address] chest completed 03/01/2024 revealed no evidence of intrathoracic metastatic disease. CT was ordered by his surgeon given a history of liposarcoma in the abdomen. Low suspicion pulmonary nodules and pleural-based nodules measuring up to 6 mm were seen. Mild aneurysmal dilation of the ascending thoracic aorta was also seen. Chest x-ray this admission with clear lung gillespie and no evidence of pneumothorax or pneumonia. Cardiovascular: Left heart catheterization today with diffuse coronary artery disease. Patient with a known history of systolic heart failure. He is maintaining his pressures currently. Maintain maps above 65 mmHg. Patient also has a history of PE and is anticoagulated with warfarin. INR currently 2.9. Will likely start heparin infusion tomorrow. Obtain echocardiogram. Trend troponins. Patient also currently with ventricular arrhythmia as he was shocked 3 times by an AED. Will continue amiodarone for the time being. Will check TSH and LFTs. LFTs on admission were normal. Gastrointestinal: N.p.o. for the time being. Patient does have a history of cholelithiasis. No acute evidence of cholangitis at this time. Will place OG tube. Renal: Aguirre catheter placed in the ICU. Will monitor urine output closely. Maintain potassium above 4 and magnesium above 2. Infectious disease: No clear evidence of infectious etiology at this time, but will obtain urinalysis and blood cultures given unclear cause of patient's cardiac arrest. Will also obtain procalcitonin. Hold on empiric antibiotics for the time being. Hematologic: Patient with a history of PE and currently therapeutic with warfarin. Will start heparin tomorrow. Endocrine: Check TSH and maintain euglycemia. Lines and tubes: Left femoral line placed 04/05/2024. Aguirre catheter placed 04/25. Intubated in the field 04/05/2024. VTE prophylaxis: INR therapeutic at 2.9 CODE STATUS: Presumed to be a full code at this time is no family readily available. Disposition: ICU I have personally spent 72 minutes of critical care time in the direct management of this patient. This is a life/limb threatening event. This includes time spent evaluating patient, direct bedside care, chart review, placing orders, interpretation of diagnostic studies, discussion with consultants, patient, and family members, as well as other required patient management activities. This time is exclusive of all separately billable procedures, and teaching time and separate from and in addition to any other critical care service time. Thank you for allowing us to participate in the care of this patient. History of Present Illness Reason for Consultation: Status post cardiac arrest Attending Physician: Devante Carrasco MD History of Present Illness 78-year-old male with a history of heart failure with reduced ejection fraction, lipo sarcoma requiring strangulated right inguinal hernia repair earlier in January 2024, BPPV, asthma, hypertension, hypothyroidism, diabetes mellitus type 2, pulmonary embolism on warfarin and hyperlipidemia who presented to the hospital via EMS. No history is obtainable from the patient as he is currently obtunded history obtained from chart review, discussion with the ER, discussion with professor of anthropology and hospitalist service. Patient was at the [facility] and had a witnessed arrest. He received CPR immediately and 3 defibrillations from an ADHD. ROSC was then obtained. He was intubated in the field. He was found to have ST elevations in the field, but no ST abnormalities in the ER. He did have a new right bundle branch block. He was hypertensive and ultimately taken to the [facility] [employer]. He was found to have multivessel coronary artery disease which appears to be chronic. Upon arrival to the ICU, patient was intubated. No sedation was required as the patient is obtunded and unresponsive to commands. He did have some posturing activity and was given 2 mg of IV Ativan due to concerns of possible seizure activity. He was hemodynamically stable. His left femoral sheath was changed over to a triple-lumen catheter. Allergies Allergy/AdvReac Type Severity Reaction Status Date / Time pollen extracts Allergy Intermediate Itchy/Watery Verified 03/23/24 14:18 Eyes/Congestion wool Allergy Intermediate Nasal Verified 03/23/24 14:18 Congestion; sneezing amoxicillin [From Augmentin] AdvReac Intermediate Diarrhea Verified 03/23/24 14:18 clavulanic acid AdvReac Intermediate Diarrhea Verified 03/23/24 14:18 [From Augmentin] lisinopril AdvReac Intermediate Cough/Light Verified 03/23/24 14:18 Headed Home Medications Medication Instructions Recorded Confirmed Type fluticasone furoate 200 1 inh inhalation Q24H 90 days #180 08/05/23 03/23/24 Rx mcg-vilanterol 25 mcg/dose ea inhalation powder (Breo Ellipta) warfarin 5 mg tablet 5 mg PO .COMPLEX #90 tabs 09/29/23 03/23/24 Rx warfarin 7.5 mg tablet 7.5 mg PO .weekly #50 tabs 09/29/23 03/23/24 Rx glimepiride 2 mg tablet 2 mg PO BID 90 days #180 tabs 12/07/23 03/23/24 Rx furosemide 40 mg tablet (Lasix) 40 mg PO QAM 12/28/23 03/23/24 History Cranberry Extra Strength 15,000 mg PO QAM 12/31/23 03/23/24 History aspirin 81 mg tablet,delayed 81 mg PO QAM 12/31/23 03/23/24 History release levothyroxine 50 mcg tablet 50 mcg PO QAM 12/31/23 03/23/24 History (Synthroid) magnesium oxide 500 mg PO BID 12/31/23 03/23/24 History metoprolol succinate 50 mg 50 mg PO QAM 12/31/23 03/23/24 History tablet,extended release 24 hr omeprazole 40 mg capsule,delayed 40 mg PO DAILY PRN Acid Reflux 12/31/23 03/23/24 History release atorvastatin 80 mg tablet (Lipitor) 80 mg PO QPM #90 tabs 03/07/24 03/23/24 Rx potassium chloride 10 mEq See Rx Instructions PO DAILY PRN 03/07/24 03/23/24 Rx tablet,extended release (Klor-Con) Heart Rate #90 tabs Patient History Medical History PAD (peripheral artery disease) Hypothyroidism HTN (hypertension) CAD (coronary artery disease) COPD (chronic obstructive pulmonary disease) Type 2 diabetes mellitus Chronic systolic heart failure [facility] Asthma Anticoagulated on warfarin History of anemia Bronchitis Thromboembolism of lower extremity artery Toe infection hx Embolism, arterial, leg, right Surgical History History of orchiectomy (01/12/24) Robotic Assisted Laparoscopic Incarcerated Right Inguinal Hernia Repair Converted to Open, Right Orchiectomy(Right) - Russell Hoang DO, FACS H/O right inguinal hernia repair (01/12/24) Robotic Assisted Laparoscopic Incarcerated Right Inguinal Hernia Repair Converted to Open, Right Orchiectomy(Right) - Russell Hoang DO, FACS Hx of oral surgery Teeth removed Hx of cardiac catheterization 2013 Deep vein blood clot of right lower extremity hx Thromboendarterectomy preformed in 2003 [facility] Family History Father Congestive heart failure (CHF) Pancreatic adenocarcinoma Permanent atrial fibrillation Emphysema of lung Brother Asthma Mother No problems noted. Other Clotting disorder Diabetes Denies family history of Prostate cancer Colorectal cancer Social History Smoking Status: Unknown if ever smoked Tobacco Type: Smokeless Tobacco (Dip or Chew) Second Hand Exposure: No; Do You Dip or Chew Tobacco: Yes (Advised); Hx Alcohol Use: No Hx Substance Use: No Preferred Language: Maori Communication Ability: Effective Visual Impairment: No Limitations Hearing Ability: Normal Tube And Rod Straightener Required: No Beliefs That Will Affect Care: None marital status: Current Living Situation: Alone current occupational status: retired Feels Safe at Home: Yes Childhood Exposure to Second-Hand Smoke: No Diet: low carbohydrate caffeine: Yes during the past year weight has: remained stable Seatbelt Use: always Sunscreen Use: No Assistive Devices: Glasses and Other Review of Systems Review of Systems: Unobtainable due to cognitive status, Unobtainable due to endotracheal tube and Unobtainable due to reduced consciousness Physical Exam Constitutional: + altered mental status and + mechanical ly ventilated Eyes: Pupils pinpoint and minimally reactive to light. Anicteric sclera. ENMT: Endotracheal tube in place. Neck: trachea midline, no thyromegaly Respiratory: Rhonchi noted bilaterally in the upper lung gillespie. Cardiovascular: RRR, no murmur, no edema Chest (Breasts): normal inspection/palpation of breasts Gastrointestinal (Abdomen): normal bowel sounds, soft, nontender, no hepatosplenomegaly Musculoskeletal: no cyanosis or clubbing, extremities motor strength 5/5 Neurologic: Unresponsive and difficult to assess. Occasional myoclonic jerking. Psychiatric: Unresponsive Results & Data Results & Data Vital Signs (Past 12 Hours) Vital Signs Temp Pulse Pulse Resp BP BP Pulse Ox 04/05/24 14:46 89 20 100 04/05/24 14:31 100 04/05/24 14:30 04/05/24 14:27 80 22 89/56 L 100 04/05/24 14:15 79 21 100/62 100 04/05/24 14:05 88 04/05/24 13:58 36.4 C 91 H 20 97/74 L 100 O2 Del Method FiO2 04/05/24 14:46 60 04/05/24 14:31 Mechanical Vent 04/05/24 14:30 Mechanical Vent 04/05/24 14:27 Mechanical Vent 04/05/24 14:15 Mechanical Vent 04/05/24 14:05 04/05/24 13:58 Mechanical Vent Coding Level of Care Code 54148 CRITICAL CARE 1ST 30-74M Diagnoses Cardiac arrest I46.9 Unresponsive R41.89 Metabolic acidosis E87.20 Coronary artery disease I25.10
[2024-04-05] MEDS: LORazepam 2 MG/1 ML VIAL ONE (16:48)
[2024-04-05 17:08] LABS: Alanine Aminotransferase 52 U/L (7-52); Albumin Globulin Ratio 1.2 (0.9-2); Albumin Level 3.7 gm/dl (3.4-5.0); Alkaline Phosphatase 69 U/L (34-104); Anion Gap 12 (3-11); Aspartate Aminotransferase 72 U/L (13-39); BUN Creatinine Ratio 13.9 (10-20); Bilirubin,Total 0.8 mg/dl (0.2-1.0); Blood Urea Nitrogen 17 mg/dl (6-23); Calcium 8.4 mg/dl (8.6-10.3); Carbon Dioxide 23 mmol/L (21-32); Chloride 100 mmol/L (98-107); Glucose 345 mg/dl (70-99(Fasting)); Potassium 3.8 mmol/L (3.5-5.1); Sodium 135 mmol/L (136-145); Total Protein 6.7 gm/dl (6.0-8.3)
[2024-04-05 17:18] LABS: Thyroid Stimulating Hormone 2.614 uIu/ml (0.300-4.500)
--- NOTE | 2024-04-05 17:22 | Cardiac Catheterization ---
[facility] Data: [employer] Cardiac Status Clinical evaluation leading to the procedure CAD Presenation: Sx unlikely to be ischemic Diagnostic Physicians Name: Javon Carlton MD Closure Device Recommendations: Medical Therapy and/or Counseling Cardiac Cath Procedure Full Procedure Date April 05, 2024 Pre-Procedure Diagnosis Pre-Procedure Diagnosis: Non STEMI, CAD and Arrhythmia ([id number] cardiac arrest) AUC Score AUC Score: 8 Post-Procedure Diagnosis Post-Procedure Diagnosis: Severe CAD and Elevated Intracardiac Pressures Procedure(s) Performed Procedure(s) Performed: Coronary Angiography, Left Heart Cath, Right Heart Cath and Ultrasound Guided Vascular Access Network Cabler Javon Carlton MD Steel Post Installer(s) Ramez Estimated Blood Loss Estimated Blood Loss: 5 Medication(s) Medication(s): Lidocaine 1% Summary of Findings Indication: Itq-fn-haarjbxr cardiac arrest. Known severe three-vessel coronary artery disease Access: 6 Fr slender left LICENSED APPRAISER under ultrasound guidance, 6 Fr slender left CFV under ultrasound guidance Catheters: JL 4, JR4, 6 Fr Wilson Findings: LM -normal caliber, no significant disease LAD -medium caliber, heavily calcified, severe diffuse disease prior to 100% mid occlusion after takeoff of small D2. Mid/distal LAD fills partially via left to left collaterals and briskly via right to left collaterals. High bifurcating D1 with 70-80% ostial stenosis. D3 fills via left to left collaterals. First septal 80% proximal stenosis. Circumflex -medium caliber, heavily calcified, 8090 % mid segment disease. Small OM 2 with mild diffuse disease. 100% distal chronic total occlusion. Left PLB fills retrograde via left to left collaterals RCA -dominant, medium caliber, calcified, 100% earlymid chronic total occlusion. Latemid/distal vessel fills via right to right bridging collaterals. RCA provides collaterals to LAD Right heart cath RA 10 RV 44/11 PA 43/21 (29) PAWP 15 LVEDP 19 PaSat 62% AoSat 100% Karissa CO/CI 4.4/2.1 Arterial Closure: Mynx. Left CFV sheath sutured in place. Summary: 1. Severe chronic multivessel coronary artery disease -100% mid LAD ELECTRICAL LINEWORKER. Distal LAD fills via right to left and left to left collaterals 80-90% mid circumflex. 100% distal circumflex. Left PLB fills via left to left collaterals. 100% earlymid RCA ELECTRICAL LINEWORKER. Distal RCA fills via right to right collaterals. 70-80% ostial high bifurcating D1 2. Mildly elevated left and right-sided filling pressures 3. Mild pulmonary hypertension (postcapillary) 4. Preserved cardiac output Recommendations: Stable, chronic multivessel CAD not significantly changed from 2014. No targets for PCI. Pending clinical course repeat evaluation for CABG could be considered. Continue amiodarone infusion Hemodynamics Rest Ao:: Final Ao: LV: 99/19 Recommendations Recommendations: Medical Therapy and/or Counseling Radiation Exposure (mGy) 1077 Contrast (mls) 50 Procedural Complication(s) None Disposition ICU I attest to the content of the Intraoperative Record and any orders documented therein. Any exceptions are noted below. [facility] Card Cath Procedure Codes Cardiac Catheterization Procedure 1: Cardiovascular Cath Procedures: 35514 Coronaries & LHC (+/-LV) & RHC Therapeutic Services & Ancillary Procedure 1: Cardiovascular Tx and Anc Procedures: 51424 Ultrasonic Guidance Vascular Access Procedure 2: Cardiovascular Tx and Anc Procedures: 87006 Ultrasonic Guidance Vascular Access PG Care Time/CCT Total # of Minutes Spent Total Time Spent with Patient: Total time spent is greater than 50% in coordination of care (as documented) at patient's floor/unit and/or counseling patient:
[2024-04-05] MEDS ORDERED: DEXTROSE 50% 50 ML SYRINGE IV PRN (17:30)
[2024-04-05] MEDS ORDERED: CARBOHYDRATES FOR HYPOGLYCEMIA PO PRN (17:30)
[2024-04-05] MEDS ORDERED: GLUCAGON FOR INJ 1 MG VIAL SQ PRN (17:30)
[2024-04-05] MEDS ORDERED: GLUCOSE 40% GEL 15 GM TUBE PO PRN (17:30)
[2024-04-05] MEDS ORDERED: GLUCOSE 10 TAB/TUBE PO PRN (17:30)
[2024-04-05] MEDS: ICU ELECTROLYTE REPLACEMENT PROTOCOL SCH (17:37)
[2024-04-05 17:45] LABS: Appearance Urine Cloudy (Clear); Bacteria Urine Automated 1+ (None Seen); Bilirubin Urine Negative (Negative); Blood Urine 2+ (Negative); Cast Urine Automated >20 /lpf (0-2); Color Urine Dark Yellow; Glucose Urine UA 3+ (Negative); Granular Casts Urine Present /lpf (None Prsent); Ketones Urine Trace (Negative); Leukocyte Esterase Urine Negative (Negative); Nitrite Urine Negative (Negative); Protein Urine 3+ (Negative); Specific Gravity Urine 1.045 (1.000-1.030); Urobilinogen Urine Negative (Negative); WBC Urine Automated 21-50 /hpf (0-5)
[2024-04-05] MEDS: INSULIN ASPART PER UNIT CHARGE SC SCH (17:45)
--- NOTE | 2024-04-05 18:05 | Electroencephalogram ---
EEG Procedure Note Date of Service April 05, 2024 Start / End Times Start Time: 1733 End Time: 1753 Referring Physician Maxim Olmstead PA-C History 78 year old, unresponsive to voice post cardiac arrest. Home Medication List Medication Instructions Recorded Confirmed Type fluticasone furoate 200 1 inh inhalation Q24H 90 days #180 08/05/23 03/23/24 Rx mcg-vilanterol 25 mcg/dose ea inhalation powder (Breo Ellipta) warfarin 5 mg tablet 5 mg PO .COMPLEX #90 tabs 09/29/23 03/23/24 Rx warfarin 7.5 mg tablet 7.5 mg PO .weekly #50 tabs 09/29/23 03/23/24 Rx glimepiride 2 mg tablet 2 mg PO BID 90 days #180 tabs 12/07/23 03/23/24 Rx furosemide 40 mg tablet (Lasix) 40 mg PO QAM 12/28/23 03/23/24 History Cranberry Extra Strength 15,000 mg PO QAM 12/31/23 03/23/24 History aspirin 81 mg tablet,delayed 81 mg PO QAM 12/31/23 03/23/24 History release levothyroxine 50 mcg tablet 50 mcg PO QAM 12/31/23 03/23/24 History (Synthroid) magnesium oxide 500 mg PO BID 12/31/23 03/23/24 History metoprolol succinate 50 mg 50 mg PO QAM 12/31/23 03/23/24 History tablet,extended release 24 hr omeprazole 40 mg capsule,delayed 40 mg PO DAILY PRN Acid Reflux 12/31/23 03/23/24 History release atorvastatin 80 mg tablet (Lipitor) 80 mg PO QPM #90 tabs 03/07/24 03/23/24 Rx potassium chloride 10 mEq See Rx Instructions PO DAILY PRN 03/07/24 03/23/24 Rx tablet,extended release (Klor-Con) Heart Rate #90 tabs Inpatient Medication List Amiodarone HCl/Dextrose (Nexterone / D5w) 360 mg in 200 mls @ 33.333 mls/hr IV ONE ONE; Protocol Stop: 04/05/24 20:08 Last Admin: 04/05/24 14:12 Dose: 1 mg/min, 33.3 mls/hr Documented By: PADDY Co-signed By: HS Insulin Aspart (Insulin Aspart Per Unit Charge) 0 units SC Q6 [facility] Stop: 05/05/24 17:59 Last Admin: 04/05/24 17:45 Dose: 8 units Documented By: RNC Co-signed By: SAMINA Aguirre (Icu Protocol For Hyperglycemia) 1 each N/A ACHS RUIZ Stop: 04/07/24 16:29 Last Admin: 04/05/24 16:39 Dose: 1 each Documented By: RNMendel Aguirre (Icu Electrolyte Replacement Protocol) 1 each N/A BID@18 [facility]; Protocol Stop: 04/12/24 17:59 Last Admin: 04/05/24 17:37 Dose: Not Given Documented By: RNC Discontinued Medications Fentanyl Citrate (Fentanyl Citrate Pf 100 Mcg/2 Ml Vial) Confirm Administered Dose 100 mcg .ROUTE .STK-MED ONE Stop: 04/05/24 14:00 Last Admin: 04/05/24 15:07 Dose: Not Given Documented By: TIESHA Heparin Sodium (Porcine) (Heparin (Porcine) 1000 Unit/Ml 10 Ml (Photographers' Model Use Only)) Confirm Administered Dose 10,000 units .ROUTE .STK-MED ONE Stop: 04/05/24 14:00 Last Admin: 04/05/24 15:07 Dose: Not Given Documented By: TIESHA Heparin Sodium/Sodium Chloride (Heparin In Nss Infusion 1000 Unit/500 Ml (2 U/Ml) Bag) Confirm Administered Dose 3,000 units IV .STK-MED ONE Stop: 04/05/24 14:01 Last Admin: 04/05/24 15:07 Dose: 3,000 units Documented By: TIESHA Sodium Chloride (Nss) 1,000 mls @ 999 mls/hr IV .Q1H1M ONE Stop: 04/05/24 15:02 Last Infusion: 04/05/24 17:48 Dose: Infused Documented By: Admin: 04/05/24 14:05 Dose: 999 mls/hr Documented By: PADDY Ioversol (Optiray 350) Confirm Administered Dose 1 ml .ROUTE .STK-MED ONE Stop: 04/05/24 14:01 Last Admin: 04/05/24 15:08 Dose: 40 ml Documented By: PALAK Lorazepam (Lorazepam 2 Mg/1 Ml Vial) 2 mg IV NOW STA Stop: 04/05/24 15:48 Last Admin: 04/05/24 15:50 Dose: 2 mg Documented By: AN Lorazepam (Lorazepam 2 Mg/1 Ml Vial) Confirm Administered Dose 2 mg .ROUTE .STK- MED ONE Stop: 04/05/24 15:48 Last Admin: 04/05/24 16:48 Dose: Not Given Documented By: RNMendel Midazolam HCl (Midazolam Hcl 1 Mg/Ml 2ml Vial) Confirm Administered Dose 2 mg .ROUTE .STK-MED ONE Stop: 04/05/24 14:00 Last Admin: 04/05/24 15:07 Dose: Not Given Documented By: TIESHA Miscellaneous (Rapid Sequence Induction Bag) Confirm Administered Dose 1 each N/A .STK-MED ONE Stop: 04/05/24 13:55 Last Admin: 04/05/24 16:22 Dose: Not Given Documented By: SAMINA Nicardipine HCl (Nicardipine 2,000 Mcg/20 Ml Syr) Confirm Administered Dose 2,000 mcg .ROUTE .STK-MED ONE Stop: 04/05/24 14:00 Last Admin: 04/05/24 15:07 Dose: Not Given Documented By: TIESHA Nitroglycerin/Dextrose (Nitroglycerin/D5w 100mcg/Ml 20ml Syr) Confirm Administered Dose 2,000 mcg .ROUTE .STK-MED ONE Stop: 04/05/24 14:01 Last Admin: 04/05/24 15:07 Dose: Not Given Documented By: [facility] Description This is a 21 electrode EEG with a single channel dedicated to limited EKG. The electrodes were placed in accordance with the International 10-20 system. Interpretation The predominant background activity consists of a very low amplitude 3-4 Hz activity, of up to 20-30 mV in amplitude,seen symmetrically distributed over the posterior head regions bilaterally. This activity was consistent throughout the recording. Photic stimulation was performed and elicited no change in the background activity and no abnormal responses were seen. A considerable amount of muscle ( and some movement) artifact activity contaminated the recording, especially in the temporal and frontal head regions bilaterally. This did hinder interpretation from time to time , but not to any significant degree, overall. . Throughout the portion of the recording, no focal abnormalities or potentially epileptogenic discharges were seen. In summary, this EEG was abnormal, showing low amplitude generalized slowing of a moderate to severe degree. No focal abnormalities or potentially epileptogenic discharges were seen. Clinical Correlation The absence of potentially epileptogenic activity does not exclude a seizure disorder, since interictally, EEGs can be normal. however, there is no ongoing seizure acitivty or subclinical status epilepticus. [facility] EEG Procedure Codes Indication for Procedure (1) Cardiac arrest: (2) Unresponsive: Neurology Neurology: 55551 EEG include record awake & drowsy
[2024-04-05 18:20] LABS: Amphetamines+Metham, Urine Neg (Neg); Barbiturates, Urine Neg (Neg); Benzodiazepine, Urine Neg (Neg); Cocaine, Urine Neg (Neg); Fentanyl, Urine Neg (Neg); MDMA (Ecstacy), Urine Neg (Neg); Marijuana, Urine Pos (Neg); Methadone, Urine Neg (Neg); Opiate, Urine Neg (Neg); Phencyclidine, Urine Neg (Neg)
[2024-04-05] MEDS ORDERED: STAT IV Infusion **Titration per Protocol STA ×3 (18:24→21:29)
[2024-04-05 18:31] LABS: Adenovirus PCR Not Detected (NotDetected); Bordetella parapertussis PCR Not Detected (NotDetected); Bordetella pertussis PCR Not Detected (NotDetected); Chlamydia pneumoniae PCR Not Detected (NotDetected); Coronavirus 229E PCR Not Detected (NotDetected); Coronavirus CoV-2 (COVID19)PCR Not Detected (NotDetected); Coronavirus HKU1 PCR Not Detected (NotDetected); Coronavirus NL63 PCR Not Detected (NotDetected); Coronavirus OC43PCR Not Detected (NotDetected); Human Metapneumovirus PCR Not Detected (NotDetected); Influenza A PCR Not Detected (NotDetected); Influenza B PCR Not Detected (NotDetected); Mycoplasma pneumoniae PCR Not Detected (NotDetected); Parainfluenza Virus 1 PCR Not Detected (NotDetected); Parainfluenza Virus 2 PCR Not Detected (NotDetected); Parainfluenza Virus 3 PCR Not Detected (NotDetected); Parainfluenza Virus 4 PCR Not Detected (NotDetected); Respiratory Syncytial VirusPCR Not Detected (NotDetected); Rhinovirus/Enterovirus PCR Not Detected (NotDetected)
--- NOTE | 2024-04-05 18:35 | XRay Report ---
EXAM: Radiograph of the Abdomen 1 View INDICATION: Assess tube placement. TECHNIQUE: Frontal supine view of the abdomen/pelvis. COMPARISON: No relevant prior studies available. FINDINGS: Limitations: None. Gastrointestinal tract: There is some air in the stomach and splenic flexure of the colon. Included abdomen otherwise gasless. Organs: Visualized organ shadows appear grossly normal. Bones/joints: Degenerative changes noted throughout the spine. No acute osseous abnormality seen. Soft tissues: No abnormality noted. No radiopaque foreign body noted. Tubes, lines and devices: Nasogastric tube tip in the gastric fundus. IMPRESSION: Tip of the nasogastric tube is in the gastric fundus. ACT 112: Negative or not required by law. Electronically signed by Summer Alexander 04-05-2024 6:34 PM
[2024-04-05] MEDS: MIDAZOLAM HCL 1 MG/ML 2ML VIAL IV PRN (18:52)
[2024-04-05] MEDS: fentaNYL citrate 2,500 MCG/250 ML BAG IV SCH (18:52)
[2024-04-05] MEDS: POTASSIUM CHLORIDE 20 MEQ/15 ML UDC PO STA (18:52)
[2024-04-05] MEDS: MIDAZOLAM HCL 125MG/250ML D5W IV ONE (19:58)
[2024-04-05] MEDS: AMIODARONE / D5W 360 MG/200 ML BAG IV SCH (20:00)
[2024-04-05] MEDS: MIDAZOLAM HCL 125 MG/250 ML BAG IV SCH (20:00)
[2024-04-05] MEDS: fentaNYL BOLUS from BAG IV PRN (20:30)
[2024-04-05] MEDS ORDERED: PHARMACY GLYCEMIC MGMT CONSULT PRN (20:33)
[2024-04-05] MEDS: INSULIN ASPART PER UNIT CHARGE SC ONE (20:39)
[2024-04-05] MEDS: ACETAMINOPHEN 1,000 MG/100 ML VIAL IV PRN (20:40)
[2024-04-05] MEDS: NOREPINEPHRINE/D5W 4 MG/250 ML PLCT IV SCH (21:30)
[2024-04-05] MEDS: NOREPINEPHRINE/D5W 4 MG/250 ML IV ONE (21:50)
--- NOTE | 2024-04-06 00:25 | XRay Report ---
Exam(s): XR KUB EXAM: XR Abdomen, 1 View CLINICAL HISTORY: Reason for exam: Pre MRI screening. TECHNIQUE: Frontal supine view of the abdomen/pelvis. COMPARISON: No relevant prior studies available. FINDINGS: Lower thorax: Mild degenerative changes throughout the lower thoracic and lumbar spine. Gastrointestinal tract: There is a temperature probe in the rectum. No dilated bowel loops identified. Bones/joints: Unremarkable. No acute fracture. Soft tissues: Unremarkable as visualized. No metallic objects identified. Vasculature: Mild calcification of the iliac arteries. Tubes, lines and devices: There is an NG tube extending into the stomach. The stomach is fully distended with gas but nondilated. There is a left groin vascular catheter. IMPRESSION: There is an NG tube extending into the stomach. The stomach is fully distended with gas but nondilated. Electronically signed by: Mahendra Nava MD 04/06/24 00:24 AM
--- NOTE | 2024-04-06 00:37 | XRay Report ---
Exam(s): XR ORBITS EXAM: XR Orbits, 4 or More Views CLINICAL HISTORY: Reason for exam: Screening for foreign body for MRI. TECHNIQUE: Frontal, lateral and oblique views of the orbits. COMPARISON: No relevant prior studies available. FINDINGS: Bones/joints: Unremarkable. No acute fracture. Sinuses: Paranasal sinuses are unremarkable. Soft tissues: Unremarkable. No surgical clips or metallic foreign bodies in the brain or orbit. Tubes, lines and devices: Endotracheal and OG tubes passing through the oropharynx. Other findings: There is an upper denture in place. IMPRESSION: There is an upper denture in place. Electronically signed by: Mahendra Nava MD 04/06/24 00:36 AM
[2024-04-06] MEDS: INSULIN ASPART PER UNIT CHARGE SC SCH ×2 (00:39→12:08)
--- NOTE | 2024-04-06 05:13 | Magnetic Resonance Report ---
EXAM: MR brain wo con CLINICAL HISTORY: patient on vent. cardiac arrest. patient found unresponsive in his car. cleared for MRI from xrays orbit xray,kub and chest. CT brain 04/05/24. No previous brain MRI done here. TECHNIQUE: Multisequential and multiplanar images of the brain were submitted for review without contrast. COMPARISON: - FINDINGS: Chronic lacunar infarcts noted in bilateral cerebellar hemispheres. Mild age related neuroparenchymal atrophy noted. Rest of the brain shows normal morphology and signal intensity. No focal parenchymal lesions are seen. No intracranial hemorrhage, mass effect, midline shift, extra-axial collection, or hydrocephalus is identified. Ventricles, sulci, and basal cisterns are symmetric and normal in size and configuration. Diffusion-weighted sequences show no evidence of acute ischemic infarction.Midline structures including the pituitary gland, corpus callosum, pineal region, and brainstem are unremarkable. The craniovertebral junction is within normal limits. No calvarial abnormalities are identified.Deviated nasal septum toward left noted. Fluid signal intensities noted in the nasal cavity and nasopharynx with probable airway and feeding tubes. Small mucosal polyp noted in right maxillary sinus.Fluid signal intensities noted in bilateral mastoid air cells (right more than left), mastoiditis. The rest of the paranasal sinuses are clear. Orbital structures are unremarkable. Appropriate flow voids are present in the visualized intracranial vessels. IMPRESSION: 1. No acute ischemia, space occupying mass, or other acute intracranial pathology is demonstrated. 2. Chronic lacunar infarcts in bilateral cerebellar hemispheres and mild age related neuroparenchymal atrophy. 3. Severe right and mild left mastoiditis. 4. Fluid signal intensities noted in the nasal cavity and nasopharynx - aspiration to be ruled out. Electronically signed by Robinson Hood 04-06-2024 05:12 AM
[2024-04-06] MEDS: LANTUS PER UNIT CHARGE SQ ONE (05:19)
[2024-04-06 05:31] LABS: Alanine Aminotransferase 44 U/L (7-52); Albumin Globulin Ratio 1.3 (0.9-2); Albumin Level 3.8 gm/dl (3.4-5.0); Alkaline Phosphatase 62 U/L (34-104); Anion Gap 10 (3-11); Aspartate Aminotransferase 52 U/L (13-39); BUN Creatinine Ratio 14.6 (10-20); Bilirubin,Total 0.6 mg/dl (0.2-1.0); Blood Urea Nitrogen 24 mg/dl (6-23); Calcium 8.6 mg/dl (8.6-10.3); Carbon Dioxide 22 mmol/L (21-32); Chloride 101 mmol/L (98-107); Glucose 284 mg/dl (70-99(Fasting)); Magnesium 1.8 mg/dl (1.7-2.4); Phosphorus 3.3 mg/dl (2.5-4.9); Potassium 4.1 mmol/L (3.5-5.1); Sodium 133 mmol/L (136-145); Total Protein 6.8 gm/dl (6.0-8.3)
[2024-04-06 05:36] LABS: Basophils # (auto) 0.01 K/uL (0.00-0.20); Basophils % (auto) 0.1 %; Hematocrit (blood only) 38.3 % (42.0-52.0); Hemoglobin 12.9 g/dl (14.0-18.0); Immature Granulocytes # (auto) 0.09 K/uL (0.01-0.20); Immature Granulocytes % (auto) 0.7 %; Lymphocytes # (auto) 0.81 K/uL (1.20-3.40); Mean Corpuscular Hemoglobin 30.6 pg (25.0-34.0); Mean Corpuscular Hgb Conc 33.7 g/dL (32.0-36.0); Monocytes # (auto) 1.41 K/uL (0.11-0.59); Monocytes % (auto) 10.5 %; Neutrophils # (auto) 11.11 K/uL (1.40-6.50); Neutrophils % (auto) 82.7 %; Platelet Count 245 K/uL (130-400); RDW Coefficient of Variation 12.3 % (11.5-14.5); RDW Standard Deviation 41.3 fL (36.4-46.3); Red Blood Count 4.21 M/uL (4.70-6.10); White Blood Count 13.43 K/ul (4.8-10.8)
[2024-04-06 05:49] LABS: iSTAT Allen Test Pass; iSTAT Art Bld Gas pCO2 Correct 38 mmHg (35-46); iSTAT Art Bld Gas pH Corrected 7.373 (7.35-7.45); iSTAT Arterial Blood Gas HCO3 22 meg/L (19-24); iSTAT Arterial Blood Gas pCO2 37 mmHg (35-46); iSTAT Arterial Blood Gas pH 7.39 (7.35-7.45); iSTAT Arterial Blood Gas pO2 105 mmHg (80-95); iSTAT Arterial Blood Gas pO2 C 110; iSTAT Carbon Dioxide 23 mmol/L (24-31); iSTAT FiO2 30 %; iSTAT Hematocrit 36 % (42-52); iSTAT Hemoglobin 12.2 g/dl (14.0-18.0); iSTAT Sample Type Arterial; iSTAT Site R Radial; iSTAT Sodium 134 mmol/L (135-144); iSTAT SpO2 100
[2024-04-06] MEDS: MAGNESIUM SULFATE / D5W 1 GM/100 ML BAG IV SCH (06:02)
[2024-04-06] MEDS ORDERED: VANCOMYCIN HCL 1,750 MG in SODIUM CHLORIDE 0.9% 500 ML IV ONE (08:04)
[2024-04-06] MEDS ORDERED: VANCOMYCIN CONSULT ACTIVE PRN (08:04)
[2024-04-06 08:27] LABS: iSTAT Art Bld Gas pCO2 Correct 37 mmHg (35-46); iSTAT Art Bld Gas pH Corrected 7.377 (7.35-7.45); iSTAT Arterial Blood Gas HCO3 21 meg/L (19-24); iSTAT Arterial Blood Gas pCO2 36 mmHg (35-46); iSTAT Arterial Blood Gas pH 7.39 (7.35-7.45); iSTAT Arterial Blood Gas pO2 115 mmHg (80-95); iSTAT Arterial Blood Gas pO2 C 119; iSTAT Carbon Dioxide 22 mmol/L (24-31); iSTAT FiO2 30 %; iSTAT Hematocrit 37 % (42-52); iSTAT Hemoglobin 12.6 g/dl (14.0-18.0); iSTAT Sample Type Arterial; iSTAT Site Art Line; iSTAT Sodium 133 mmol/L (135-144); iSTAT SpO2 30
--- NOTE | 2024-04-06 08:50 | Procedure Note ---
Procedure Note Date of Service April 06, 2024 Procedure: Femoral Arterial Line Placement Attending: Dr. Foster APC: Maxim Olmstead PA-C Indication: Central Drug Administration, Poor Venous Access, Multiple Lab Draws Necessary, etc. Anesthesia: None Emergent consent implied in the setting of active deterioration and need for close hemodynamic monitoring with escalation of pressors and risk for worsening acidosis. A time-out was completed verifying correct patient, procedure, site, positioning, and implants(s) or special equipment if applicable. Patient's right groin was cleansed and draped in the typical sterile fashion using Chloraprep. The Femoral Vein and Femoral Artery were identified using ultrasound. The Femoral Artery was cannulated under direct ultrasound guidance using an introducer needle on a syringe. Good arterial blood return was maintained prior to removal of syringe from introducer needle. Using Seldinger Technique, a guide wire was advanced through the introducer needle without resistance. The introducer needle was removed and ultrasound images were obtained of the guide wire within the Femoral Artery and saved to the patient's medical record. The arterial catheter was advanced into the vessel without resistance. The guide wire was removed intact from the catheter without issue. The catheter was attached to the tubing and good arterial waveform was noticed on the monitor. Good blood flow was appreciated from the catheter and safety set as well. Catheter easily flushed. The catheter was placed at the hub and sutured in place. BioPatch was applied to the catheter and a sterile Tegaderm dressing was applied over the catheter with careful attention to sterility. Patient tolerated procedure well. No immediate complications were met. Images obtained are saved for permanent record Procedural Ultrasound Guidance: Procedure Date: 04/06/2024 Indication: Active deterioration and need for close hemodynamic monitoring, ABGs, etc. Attending: Dr. Foster APC: Maxim Olmstead PA-C Artery AND Vein visualized: YES Guidewire or Short Catheter seen in artery: YES Line confirmed in Vein with ultrasound: YES Images obtained are saved for permanent record. [facility] Procedure Codes (Charges) Tubes, Drains, and Vasc Access Procedure 1: Tubes, Drains, and Vasc Access: [id number] Arterial Cath/Cannulation Sampling/Monitoring/Transfusion Coding CPT Codes Tubes, Drains, and Vasc Access - Tubes, Drains, and Vasc Access: [id number] Arterial Cath/Cannulation Sampling/Monitoring/Transfusion ([id number]) Additional Codes Date of Service ([facility].SURGERY)
[2024-04-06] MEDS ORDERED: STAT IV Infusion **Titration per Protocol STA (08:55)
--- NOTE | 2024-04-06 09:04 | XCELERA ---
[id number] \\[id number]
[2024-04-06] MEDS: cefTRIAXone SODIUM 2,000 MG/50 ML BAG IV SCH (09:31)
[2024-04-06] MEDS: VANCOMYCIN HCL 2,000 MG in SODIUM CHLORIDE 0.9% 500 ML IV SCH (09:31)
[2024-04-06] MEDS: INSULIN REGULAR 250 UNITS in SODIUM CHLORIDE 0.9% 247.5 ML IV SCH (09:31)
[2024-04-06] MEDS: Patient's HEIGHT &/or WEIGHT Needed ONE (09:40)
[2024-04-06] MEDS: INSULIN PROTOCOL GOAL RANGE ONE (09:40)
[2024-04-06] MEDS: FAMOTIDINE 20MG IV PUSH 20 MG/5 ML SYR IV SCH (09:40)
[2024-04-06] MEDS: SEVERE STRESS LEVEL ONE (09:40)
--- NOTE | 2024-04-06 10:14 | Pharmacy Report ---
Pharmacy Glycemic Short Note 2 - Date of Service April 06, 2024 - Glycemic Short BSG Results (Last 24 hours): 04/05/24 04/05/24 04/05/24 14:04 14:06 16:28 Glucose 309 H* 345 H* POC Glucose POC Glucose (other) 296 H 04/05/24 04/05/24 04/06/24 16:29 20:29 00:31 Glucose POC Glucose 328 H* 279 H 224 H POC Glucose (other) 04/06/24 04/06/24 04/06/24 04:52 04:56 08:51 Glucose 284 H POC Glucose 267 H POC Glucose (other) 318 H OUTPATIENT ANTIDIABETIC REGIMEN: * glimepiride 2mg PO BID * empagliflozin 10mg PO daily HbA1C: __ ASSESSMENT: * Pt is a 78 year old male admitted s/p cardiac arrest. History of DM2 on PO therapies @ home. Pharmacy consulted to assist with inpatient glycemic management. * BSGs elevated since arrival: [phone]. Intubated and requiring vasopressor support. Initially started on SQ insulin. Received 18 units of bolus insulin yesterday and 10 units of basal early this AM. * Given hyperglycemia in setting of critical illness with poor control on trial of SQ, will begin insulin infusion per hyperglycemia protocol. PLAN FOR INPATIENT GLYCEMIC CONTROL: * Hold outpatient oral diabetes medications * Basal insulin * Lantus 10 units SQ X 1 * Insulin infusion (goal BSG 110-180, severe stress) per hyperglycemia protocol * Bolus insulin * NovoLog per scale ACHS or Q6hrs while NPO * Goal Range: Low 110 mg/dL - High 180 mg/dL * Correction Factor: - mg/dL/unit * Nutritional / Prandial insulin per carb ratio of 1 unit per (insulin infusion calculator) grams CHO consumed
[2024-04-06] MEDS ORDERED: Nursing to Pharmacy Communication SCH (10:15)
[2024-04-06 10:25] LABS: INR 3.9 (0.9-1.1); Prothrombin Time 37.1 Seconds (9.0-12.0)
--- NOTE | 2024-04-06 11:06 | Critical Care Progress Note ---
Date of Service April 06, 2024 Assessment & Plan (1) Cardiac arrest: (2) Unresponsive: (3) Metabolic acidosis: (4) Coronary artery disease: Plan 78-year-old male with a past medical history of diabetes, systolic cardiomyopathy, coronary artery disease, peripheral artery disease, COPD and asthma presenting to the hospital due to a cardiac arrest. Neurologic: Patient completely unresponsive to commands, but does withdraw to painful stimuli. He does spontaneously lift his arms when he is suctioned. EEG nonspecific without epileptiform activity. MRI brain without acute findings, but chronic lacunar infarcts noted. Severe right and mild left mastoiditis. Prognosis at this time is quite guarded. Will limit sedation to follow his neurostatus closely. Maintain normothermia. Maintain euglycemia. Head of the bed above 35 degrees. Urine drug screen positive for marijuana. Ammonia normal. TSH normal. Pulmonary: Patient currently intubated for airway protection. On minimal ventilatory support. Trend ABGs which have thus far been normal. Follow-up chest x-ray today due to low-grade fever. CT chest completed 03/01/2024 revealed no evidence of intrathoracic metastatic disease. 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 Low suspicion pulmonary nodules and pleural-based nodules measuring up to 6 mm were seen. Mild aneurysmal dilation of the ascending thoracic aorta was also seen. Chest x-ray on admission with clear lung gillespie and no evidence of pneumothorax or pneumonia. Cardiovascular: Left heart catheterization 04/05/2025 with diffuse coronary artery disease. Patient with a known history of systolic heart failure. He is maintaining his pressures currently. Maintain maps above 65 mmHg. Patient also has a history of PE and is anticoagulated with warfarin. INR currently 3.9. Per inshore undersea warfare officer. Echo with an EF of about 10%. Troponins downtrending. Patient also currently with ventricular arrhythmia as he was shocked 3 times by an AED. Will continue amiodarone for the time being. Gastrointestinal: Will start tube feeds. Patient does have a history of cholelithiasis. No acute evidence of cholangitis at this time. LFTs stable and improving AST. Pepcid fo r GI prophylaxis. Renal: Aguirre catheter placed in the ICU. Will monitor urine output closely. Maintain potassium above 4 and magnesium above 2. Patient with mild TROY likely secondary to hypotension and ischemic ATN. Obtain renal ultrasound. Infectious disease: Patient with low-grade fever overnight. Urinalysis was positive. Urine cultures pending. Blood cultures pending and negative to date. White count slightly elevated. MRSA screen was negative. Ceftriaxone started 04/06/2024. 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 Monitor INR daily. Repeat INR today in the evening. Endocrine: TSH unremarkable. Maintain euglycemia with insulin drip as needed. Lines and tubes: Left femoral line placed 04/05/2024. Right femoral arterial line placed 04/06/2024. Aguirre catheter placed 04/05/24. Intubated in the field 04/05/2024. VTE prophylaxis: INR therapeutic at 2.9 CODE STATUS: Presumed to be a full code at this time is no family readily available. Case management will assist in helping us find a potential power of cannon pinion adjuster or surrogate decision maker. Disposition: ICU Discussed on multidisciplinary rounds. I have personally spent 49 minutes of critical care time in the direct management of this patient. This is a life/limb threatening event. This includes time spent evaluating patient, direct bedside care, chart review, placing orders, interpretation of diagnostic studies, discussion with consultants, patient, and family members, as well as other required patient management a ctivities. This time is exclusive of all separately billable procedures, and teaching time and separate from and in addition to any other critical care service time. Thank you for allowing us to participate in the care of this patient. Admission and Anticipated Discharge Date Admission Date: April 05, 2024 Subjective This morning patient became hemodynamically unstable and required vasopressor support and placement of urgent arterial line. Patient remains unresponsive. We have discontinued his Versed and fentanyl for sedation vacation. He does have an intact gag reflex. His pupils are minimally responsive to light. Unfortunately we have been unsuccessful in contacting any family. There was a friend that came to see him yesterday. Review of Systems Review of Systems: Unobtainable due to mental health condition and Unobtainable due to reduced consciousness Physical Exam Constitutional: + altered mental status and + mechanical ly ventilated Eyes: Pupils pinpoint and minimally reactive to light. Anicteric sclera. ENMT: Endotracheal tube in place. Neck: trachea midline, no thyromegaly Respiratory: Rhonchi noted bilaterally in the upper lung gillespie. Cardiovascular: RRR, no murmur, no edema Chest (Breasts): normal inspection/palpation of breasts Gastrointestinal (Abdomen): normal bowel sounds, soft, nontender, no hepatosplenomegaly Musculoskeletal: no cyanosis or clubbing, extremities motor strength 5/5 Neurologic: Unresponsive and difficult to assess. Occasional myoclonic jerking. Gag reflex intact. Psychiatric: Unresponsive Results & Data Results & Data Vital Signs (Past 12 Hours) Vital Signs Temp Pulse Resp BP Pulse Ox FiO2 04/06/24 07:14 53 L 20 100 30 04/06/24 07:03 37.7 C H 53 L 20 100 04/06/24 07:00 79/52 L 04/06/24 07:00 79/52 L 04/06/24 07:00 79/52 L 04/06/24 06:45 83/55 L 04/06/24 06:45 83/55 L 04/06/24 06:45 83/55 L 04/06/24 06:42 37.8 C H 55 L 20 100 04/06/24 06:30 86/56 L 04/06/24 06:30 86/56 L 04/06/24 06:30 86/56 L 04/06/24 06:30 86/56 L 04/06/24 06:24 37.8 C H 55 L 20 100 04/06/24 06:15 88/59 L 04/06/24 06:15 88/59 L 04/06/24 06:00 90/59 L 04/06/24 06:00 90/59 L 04/06/24 05:48 37.8 C H 63 20 100 04/06/24 05:45 108/66 04/06/24 05:45 108/66 04/06/24 05:30 89/60 L 04/06/24 05:19 88/59 L 04/06/24 05:10 62 20 100 30 04/06/24 05:00 37.8 C H 82/57 L 04/06/24 05:00 70 20 98 04/06/24 04:45 125/71 04/06/24 04:45 125/71 04/06/24 04:45 125/71 04/06/24 04:45 125/71 04/06/24 04:41 141/81 H 04/06/24 04:33 72 32 H 04/06/24 04:00 30 04/06/24 03:15 61 21 99 04/06/24 03:15 114/65 04/06/24 03:00 105/61 04/06/24 03:00 105/61 04/06/24 02:48 62 21 99 04/06/24 02:45 65 21 99 04/06/24 02:45 118/73 04/06/24 02:30 102/62 04/06/24 02:30 60 20 99 04/06/24 02:09 61 20 99 04/06/24 02:00 101/61 04/06/24 02:00 37.7 C H 101/61 04/06/24 01:54 61 20 98 04/06/24 01:39 61 20 98 04/06/24 01:30 102/60 04/06/24 01:27 62 20 98 04/06/24 01:03 37.8 C H 62 20 98 04/06/24 01:00 97/60 L 04/06/24 01:00 97/60 L 04/06/24 00:36 62 20 98 04/06/24 00:15 97/60 L 04/06/24 00:15 97/60 L 04/06/24 00:15 62 20 98 04/06/24 00:00 97/60 L 04/06/24 00:00 62 20 98 04/06/24 00:00 35 04/06/24 00:00 62 04/05/24 23:45 64 20 98 04/05/24 23:45 113/63 04/05/24 23:45 113/63 04/05/24 23:30 63 20 98 04/05/24 23:30 101/63 04/05/24 23:30 101/63 04/05/24 23:30 101/63 04/05/24 23:15 95/59 L 04/05/24 23:15 95/59 L 04/05/24 23:15 95/59 L 04/05/24 23:10 59 L 20 99 30 04/05/24 23:03 60 20 98 04/05/24 23:00 94/58 L 04/05/24 23:00 37.9 C H 94/58 L Coding Level of Care Code 07467 CRITICAL CARE 1ST 30-74M Diagnoses Cardiac arrest I46.9 Unresponsive R41.89 Metabolic acidosis E87.20 Coronary artery disease I25.10
--- NOTE | 2024-04-06 11:21 | Cardiology Progress Note ---
Date of Service April 06, 2024 Assessment & Plan (1) Cardiac arrest: Plan: 2. Chronic multivessel CAD 3. ICM EF 15% 4. 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 Liposarcoma 6. Concern for anoxic brain injury 7. TROY 8. Possible UTI Severe three-vessel chronic CAD unchanged on repeat cardiac catheterization. Severe LV dysfunction on echo, only modest change from 10/2022. No signs of heart failure on exam or x-ray Hypotension on sedation. Possibly some component of cardiogenic shock. Maintaining pressure/perfusion on stable/low-dose pressor support Patient remains unresponsive from a neurologic standpoint. Overall suspect cardiac arrest secondary to scar mediated arrhythmia. No evidence of ACS. He is not a candidate for PCI, CABG and due to not feel that would benefit him at this time. Recommend continued supportive care from a cardiac standpoint while awaiting any neurologic recovery/further discussions of goals of care. Can continue amiodarone infusion. Admission and Anticipated Discharge Date Admission Date: April 05, 2024 Subjective Remains unresponsive. Brain MRI unremarkable. EEG with slowing but no obvious seizure Hypotensive this a.m. on sedation requiring increased norepinephrine. Pressor requirements declining No recurrent significant arrhythmia on telemetry Troponin peaked. Serum creatinine up to 1.6 today Review of Systems Review of Systems: Unobtainable due to endotracheal tube and Unobtainable due to reduced consciousness Physical Exam Physical Exam: General: Intubated, sedated. Unresponsive to voice, painful stimuli HEENT: Sclerae anicteric. Pupils equal Lungs: Coarse breath sounds bilaterally Cardiac: Regular rate Vascular: 2+ radial. Left AD OPERATIONS INTERN pulse intact, no hematoma. Left CFV central line in place, no surrounding erythema Abdomen: Firm, decreased bowel sounds Extremities: Well perfused, no peripheral edema Results & Data Vital Signs (Past 12 Hours) Vital Signs Temp Pulse Resp BP Pulse Ox FiO2 04/06/24 11:00 65 20 99 26 04/06/24 07:14 53 L 20 100 30 04/06/24 07:03 99.9 F H 53 L 20 100 04/06/24 07:00 79/52 L 04/06/24 07:00 79/52 L 04/06/24 07:00 79/52 L 04/06/24 06:45 83/55 L 04/06/24 06:45 83/55 L 04/06/24 06:45 83/55 L 04/06/24 06:42 100.0 F H 55 L 20 100 04/06/24 06:30 86/56 L 04/06/24 06:30 86/56 L 04/06/24 06:30 86/56 L 04/06/24 06:30 86/56 L 04/06/24 06:24 100.0 F H 55 L 20 100 04/06/24 06:15 88/59 L 04/06/24 06:15 88/59 L 04/06/24 06:00 90/59 L 04/06/24 06:00 90/59 L 04/06/24 05:48 100.0 F H 63 20 100 04/06/24 05:45 108/66 04/06/24 05:45 108/66 04/06/24 05:30 89/60 L 04/06/24 05:19 88/59 L 04/06/24 05:10 62 20 100 30 04/06/24 05:00 100.0 F H 82/57 L 04/06/24 05:00 70 20 98 04/06/24 04:45 125/71 04/06/24 04:45 125/71 04/06/24 04:45 125/71 04/06/24 04:45 125/71 04/06/24 04:41 141/81 H 04/06/24 04:33 72 32 H 04/06/24 04:00 30 04/06/24 03:15 61 21 99 04/06/24 03:15 114/65 04/06/24 03:00 105/61 04/06/24 03:00 105/61 04/06/24 02:48 62 21 99 04/06/24 02:45 65 21 99 04/06/24 02:45 118/73 04/06/24 02:30 102/62 04/06/24 02:30 60 20 99 04/06/24 02:09 61 20 99 04/06/24 02:00 101/61 04/06/24 02:00 99.9 F H 101/61 04/06/24 01:54 61 20 98 04/06/24 01:39 61 20 98 04/06/24 01:30 102/60 04/06/24 01:27 62 20 98 04/06/24 01:03 100.0 F H 62 20 98 04/06/24 01:00 97/60 L 04/06/24 01:00 97/60 L 04/06/24 00:36 62 20 98 04/06/24 00:15 97/60 L 04/06/24 00:15 97/60 L 04/06/24 00:15 62 20 98 04/06/24 00:00 97/60 L 04/06/24 00:00 62 20 98 04/06/24 00:00 35 04/06/24 00:00 62 04/05/24 23:45 64 20 98 04/05/24 23:45 113/63 04/05/24 23:45 113/63 04/05/24 23:30 63 20 98 04/05/24 23:30 101/63 04/05/24 23:30 101/63 04/05/24 23:30 101/63 04/05/24 23:15 95/59 L 04/05/24 23:15 95/59 L 04/05/24 23:15 95/59 L 04/05/24 23:10 59 L 20 99 30 PG Care Time/CCT Total # of Minutes Spent Total Time Spent with Patient: Total time spent is greater than 50% in coordination of care (as documented) at patient's floor/unit and/or counseling patient: Coding Level of Care Code 34286 SUB INP/OBS CARE 3/50MIN Diagnoses Cardiac arrest I46.9
[2024-04-06] MEDS ORDERED: INSULIN ASPART PER UNIT CHARGE SC SCH (11:30)
--- NOTE | 2024-04-06 11:33 | XRay Report ---
XR chest 1V portable CLINICAL HISTORY: Fever. COMPARISON STUDY: Chest CT March 01, 2022. Chest radiograph April 05, 2024. FINDINGS: The tip of the endotracheal tube is 6.2 cm above the indira. Tip of nasogastric tube is wit hin the proximal body of the stomach. Cardiomegaly is unchanged. There is no evidence for pulmonary e denny. There is no pneumothorax or pleural effusion. There is no consolidation. IMPRESSION: 1. Tip of the endotracheal tube 6.2 cm above the indira. Tip of nasogastric tube within the proximal body of the stomach. 2. No consolidation to suggest pneumonia. ACT 112: Negative or not required by law. Electronically signed by: Jose Garvey M.D. 04/06/2024 11:31 AM
--- NOTE | 2024-04-06 11:57 | Pharmacy Report ---
Pharmacy PK ABX Note - Date of Service April 06, 2024 - Assessment and Plan Assessment 78 year old M receiving vancomycin and ceftriaxone for empiric coverage. Blood and urine cultures pending. MRSA nasal (-). Critically ill- intubated and requiring vasopressor support. SCr 1.2 -->1.64. Day #1 of antimicrobial therapy. Plan Vancomycin * Loading dose: 2000 mg IV x 1 * Given TROY and ongoing vasopressor requirements, will dose by levels. Random level tomorrow AM to guide further dosing. Pharmacy will continue to follow and will adjust dose/frequency as necessary. Thank you. Pharmacy has transitioned to AUC monitoring for vancomycin. AUC/PALMIRA is the preferred PK/PD target and is associated with decreased risk of nephrotoxicity compared to traditional trough targets.
--- NOTE | 2024-04-06 12:04 | Ultrasound Report ---
RENAL ULTRASOUND HISTORY: Acute kidney injury [place] COMPARISON: 12/24/2023 FINDINGS: Right kidney: 9.5 cm. No hydronephrosis. Mild diffuse cortical thinning. Left kidney: 10.4 cm. No hydronephrosis. Previously noted 1 cm hypoechoic left renal lesion is not se en on today's study. Mild diffuse cortical thinning. Echogenic nonshadowing foci of the midpole left kidney suggests renal sinus fat. Tiny nonobstructing calculi considered less likely. Bladder: Decompressed with Aguirre catheter. IMPRESSION: 1. No hydronephrosis. 2. Decompressed bladder with Aguirre catheter. 3. Previously noted 1 cm left renal lesion is not visualized on today's study. ACT 112: Negative or not required by law. Electronically signed by: Dario Hung M.D. 04/06/2024 12:01 PM
[2024-04-06] MEDS: AMIODARONE / D5W 360 MG/200 ML BAG IV SCH (12:07)
[2024-04-06] MEDS: TUBE FEEDING WATER FLUSH OG SCH (12:08)
--- NOTE | 2024-04-06 15:02 | Electrocardiogram Report ---
Test Reason : Blood Pressure : */* mmHG Vent. Rate : 91 BPM Atrial Rate : 91 BPM P-R Int : 174 ms QRS Dur : 108 ms QT Int : 380 ms P-R-T Axes : 42 103 79 degrees QTcB Int : 467 ms Sinus rhythm with occasional Premature ventricular complexes Incomplete right bundle branch block Nonspecific ST abnormality Abnormal ECG When compared with ECG of 05-Jan-2024 10:52, Significant changes have occurred Confirmed by Julius Evans ([id number]) on 04/06/2024 3:01:36 PM Referred By: REFERRED SELF Confirmed By: Julius Evans
[2024-04-06] MEDS: PEPTAMEN 1.5 CAL 1,000 ML BAG OG SCH (16:17)
--- NOTE | 2024-04-06 19:10 | Hospitalist Progress Note ---
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 Left heart cath showed unchanged severe three-vessel CAD with preserved cardiac output with minimally elevated right and left filling pressures on right heart cath No targets for PCI perhaps consider CABG if patient survives the hospitalization MRI brain completed - no acute CVA EEG negative for seizure focus Despite being off sedation no significant purposeful movements Remains on levophed for BP support and amiodarone drip due to need for defibrillation pre-hospital Prognosis is guarded (2) Metabolic acidosis: Plan: 2nd to lactic acidosis Improving with supportive care (3) Ischemic cardiomyopathy: Plan: Severe multivessel CAD s/p thromboendarterectomy 2002 - cardiac cath 2013 showed proximal LAD 50 to 60% with proximal to mid LAD 100%, D1 70%, D3 occluded, 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 with 80% proximal stenosis, proximal circumflex with sequential 98% stenotic lesions, AV groove circumflex 100%, proximal RCA 99% - Echo 2022 showing moderately dilated left ventricle with severely reduced systolic function, EF 25 to 30%, akinesis of mid and inferior lateral wall, global hypokinesis, mild LVH, mild mitral regurg Repeat Left heart cath yesterday relatively unchanged Unfortunately, however, EF on echo is worse - now 15-20% Continue levophed Continue amiodarone Typically on Coumadin, metoprolol, atorvastatin - all on hold (4) HFrEF (heart failure with reduced ejection fraction): Plan: EF 15-20% on echo this admission LV function worse than 2022 With out of hospital cardiac arrest due to arrhythmia requiring defibrillation x 3 (5) Hypertension: Plan: all home BP meds on hold (6) 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: Plan: Check another a1c while here Remains on insulin infusion ICU glycemic protocol in effect (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 inguinal hernia repair 01/2024 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 has yet to go to tertiary care center to discuss treatment options (8) Fever: Plan: thus far blood/urine cx's negative [employer] resp panel negative consider repeat COVID test tomorrow if still febrile remains on empiric rocephin for now (9) Thromboembolism of lower extremity artery: Plan: h/o arterial clot in the distant past also with h/o PE thus, on chronic coumadin therapy coumadin on hold - INR >3 today (10) Pulmonary embolism: Plan: as noted above (11) Acute kidney injury: Plan: Cr now 1.6 ATN in the setting of his cardiac arrest Supportive care Serial labs (12) Hypothyroidism: Plan: TSH wnl can resume synthroid (13) Metabolic encephalopathy: Plan: heavy concern for anoxic brain injury in the setting of his out of hospital cardiac arrest down time due to the cardiac arrest is uncertain sedation held serial exams MRI brain and EEG findings noted Plan VTE ppx: defer selection to ICU attending By report patient is estranged from his 2 siblings Only a friend is listed in the chart as a call or contact centre team leader I had social work scour the chart to find any other contacts - none found Admission and Anticipated Discharge Date Admission Date: April 05, 2024 Subjective events of last 24 hours noted during my visit the patient's sedation had been turned off no purposeful movements noted by staff despite sedation being off (1x the patient raised his arms during sternal rub) remains on levophed and amiodarone infusions remains on the vent Review of Systems 2 Review of Systems: Unobtainable due to endotracheal tube and Unobtainable due to reduced consciousness Physical Exam 2 Physical Exam: gen - intubated, unresponsive eyes - pupils 1mm (pinpoint) but reactive b/l neck - no JVD mouth - intubated, enteric tube present heart - RRR, s1 s2, no murmur lungs - CTA b/l abd - soft NT ND BS+ ext - pulses 1+ b/l feet, no edema neuro - downgoing great toe on R, equivacol great toe on left; patellar reflexes 2+ b/l; no purposeful movements to pain, voice, touch Results & Data Results & Data Vital Signs (Past 12 Hours) Vital Signs Temp Pulse Resp BP Pulse Ox O2 Del Method FiO2 04/06/24 16:12 37.4 C 62 20 98 04/06/24 16:00 26 04/06/24 16:00 70 04/06/24 16:00 106/64 04/06/24 15:39 68 20 98 26 04/06/24 15:35 64 04/06/24 15:30 37.8 C H 74 20 99 04/06/24 15:30 143/78 H 04/06/24 15:15 37.8 C H 67 20 98 04/06/24 14:30 125/74 04/06/24 14:27 37.7 C H 64 20 99 04/06/24 14:00 142/82 H 04/06/24 13:51 37.5 C 61 20 99 04/06/24 13:30 133/75 04/06/24 13:00 37.5 C 61 20 99 04/06/24 12:24 37.4 C 65 20 121/69 99 04/06/24 12:00 Mechanical Vent 04/06/24 12:00 26 04/06/24 12:00 62 04/06/24 11:51 37.3 C 61 20 117/69 98 04/06/24 11:24 37.2 C 63 20 98 04/06/24 11:03 36.8 C 70 20 98 04/06/24 11:00 65 20 99 26 04/06/24 10:51 36.8 C 66 20 149/78 H 99 04/06/24 10:30 36.7 C 66 20 141/74 H 98 04/06/24 09:51 37.4 C 70 20 137/71 100 04/06/24 09:45 37.4 C 58 L 20 99 04/06/24 09:18 37.5 C 59 L 20 121/67 99 04/06/24 09:09 37.5 C 58 L 20 123/70 99 04/06/24 08:45 37.4 C 61 20 99 04/06/24 08:30 37.6 C H 56 L 20 99 04/06/24 08:27 37.6 C H 56 L 20 131/73 99 04/06/24 08:10 120/68 04/06/24 08:00 124/75 04/06/24 08:00 124/75 04/06/24 07:52 113/73 04/06/24 07:48 107/74 04/06/24 07:46 109/65 04/06/24 07:42 79/57 L 04/06/24 07:40 49 L 04/06/24 07:30 94/57 L 04/06/24 07:25 103/61 04/06/24 07:15 84/55 L 04/06/24 07:14 53 L 20 100 30 Laboratory Results Laboratory Results - last 24 hr 04/06/24 04/06/24 04/06/24 04:52 04:56 05:28 WBC 13.43 H RBC 4.21 L Hgb 12.9 L POC Hgb 12.2 L Hct 38.3 L POC Hct 36 L MCV 91.0 MCH 30.6 MCHC 33.7 RDW Std Deviation 41.3 RDW Coeff of [place] 12.3 Plt Count 245 MPV 10.0 Immature Gran % (Auto) 0.7 Neut % (Auto) 82.7 Lymph % (Auto) 6.0 [place] % (Auto) 10.5 Eos % (Auto) 0.0 Baso % (Auto) 0.1 Neut # (Auto) 11.11 H Lymph # (Auto) 0.81 L [place] # (Auto) 1.41 H Eos # (Auto) 0.00 Baso # (Auto) 0.01 Immature Gran # (Auto) 0.09 PT INR Specimen Type Arterial Sample Site R Radial POC pH 7.39 POC pCO2 37 POC pO2 105 H POC HCO3 22 POC Total CO2 23 L POC Base Excess -3.0 O2 Sat Pulse Oximetry 100 ABG pH (Temp Correct) 7.373 ABG pCO2 (Temp Corrct 38 POC ABG pO2 at Pt Temp 110 POC ABG O2 Sat 98.0 H Chang Test Pass O2 Delivery Device Ventilator Vent Mode AC POC FiO2 30 End Tidal CO2 26 POC Sodium 134 L Sodium 133 L POC Potassium 4.0 Potassium 4.1 Chloride 101 Carbon Dioxide 22 Anion Gap 10 BUN 24 H Creatinine 1.64 H D Est Cr Clr Drug Dosing Not Reportable eGFR 43.08 BUN/Creatinine Ratio 14.6 Glucose 284 H POC Glucose 267 H POC Glucose (other) Calcium 8.6 Phosphorus 3.3 Magnesium 1.8 Total Bilirubin 0.6 AST 52 H ALT 44 Alkaline Phosphatase 62 Troponin I High Sens Total Protein 6.8 Albumin 3.8 Globulin 3.0 Albumin/Globulin Ratio 1.3 04/06/24 04/06/24 04/06/24 07:22 08:10 08:51 WBC RBC Hgb POC Hgb 12.6 L Hct POC Hct 37 L MCV MCH MCHC RDW Std Deviation RDW Coeff of [place] Plt Count MPV Immature Gran % (Auto) Neut % (Auto) Lymph % (Auto) [place] % (Auto) Eos % (Auto) Baso % (Auto) Neut # (Auto) Lymph # (Auto) [place] # (Auto) Eos # (Auto) Baso # (Auto) Immature Gran # (Auto) PT INR Specimen Type Arterial Sample Site Art Line POC pH 7.39 POC pCO2 36 POC pO2 115 H POC HCO3 21 POC Total CO2 22 L POC Base Excess -4.0 O2 Sat Pulse Oximetry 30 ABG pH (Temp Correct) 7.377 ABG pCO2 (Temp Corrct 37 POC ABG pO2 at Pt Temp 119 POC ABG O2 Sat 98.0 H Chang Test NA O2 Delivery Device Ventilator Vent Mode AC POC FiO2 30 End Tidal CO2 25 POC Sodium 133 L Sodium POC Potassium 4.0 Potassium Chloride Carbon Dioxide Anion Gap BUN Creatinine Est Cr Clr Drug Dosing eGFR BUN/Creatinine Ratio Glucose POC Glucose POC Glucose (other) 318 H Calcium Phosphorus Magnesium Total Bilirubin AST ALT Alkaline Phosphatase Troponin I High Sens 1400.4 H* D Total Protein Albumin Globulin Albumin/Globulin Ratio 04/06/24 04/06/24 04/06/24 09:47 10:49 11:58 WBC RBC Hgb POC Hgb Hct POC Hct MCV MCH MCHC RDW Std Deviation RDW Coeff of [place] Plt Count MPV Immature Gran % (Auto) Neut % (Auto) Lymph % (Auto) [place] % (Auto) Eos % (Auto) Baso % (Auto) Neut # (Auto) Lymph # (Auto) [place] # (Auto) Eos # (Auto) Baso # (Auto) Immature Gran # (Auto) PT 37.1 H INR 3.9 H Specimen Type Sample Site POC pH POC pCO2 POC pO2 POC HCO3 POC Total CO2 POC Base Excess O2 Sat Pulse Oximetry ABG pH (Temp Correct) ABG pCO2 (Temp Corrct POC ABG pO2 at Pt Temp POC ABG O2 Sat Chang Test O2 Delivery Device Vent Mode POC FiO2 End Tidal CO2 POC Sodium Sodium POC Potassium Potassium Chloride Carbon Dioxide Anion Gap BUN Creatinine Est Cr Clr Drug Dosing eGFR BUN/Creatinine Ratio Glucose POC Glucose POC Glucose (other) 314 H 270 H Calcium Phosphorus Magnesium Total Bilirubin AST ALT Alkaline Phosphatase Troponin I High Sens Total Protein Albumin Globulin Albumin/Globulin Ratio 04/06/24 04/06/24 04/06/24 12:59 13:46 14:57 WBC RBC Hgb POC Hgb Hct POC Hct MCV MCH MCHC RDW Std Deviation RDW Coeff of [place] Plt Count MPV Immature Gran % (Auto) Neut % (Auto) Lymph % (Auto) [place] % (Auto) Eos % (Auto) Baso % (Auto) Neut # (Auto) Lymph # (Auto) [place] # (Auto) Eos # (Auto) Baso # (Auto) Immature Gran # (Auto) PT INR Specimen Type Sample Site POC pH POC pCO2 POC pO2 POC HCO3 POC Total CO2 POC Base Excess O2 Sat Pulse Oximetry ABG pH (Temp Correct) ABG pCO2 (Temp Corrct POC ABG pO2 at Pt Temp POC ABG O2 Sat Chang Test O2 Delivery Device Vent Mode POC FiO2 End Tidal CO2 POC Sodium Sodium POC Potassium Potassium Chloride Carbon Dioxide Anion Gap BUN Creatinine Est Cr Clr Drug Dosing eGFR BUN/Creatinine Ratio Glucose POC Glucose POC Glucose (other) 228 H 201 H 154 H Calcium Phosphorus Magnesium Total Bilirubin AST ALT Alkaline Phosphatase Troponin I High Sens Total Protein Albumin Globulin Albumin/Globulin Ratio 04/06/24 04/06/24 04/06/24 16:08 16:42 18:10 WBC RBC Hgb POC Hgb Hct POC Hct MCV MCH MCHC RDW Std Deviation RDW Coeff of [place] Plt Count MPV Immature Gran % (Auto) Neut % (Auto) Lymph % (Auto) [place] % (Auto) Eos % (Auto) Baso % (Auto) Neut # (Auto) Lymph # (Auto) [place] # (Auto) Eos # (Auto) Baso # (Auto) Immature Gran # (Auto) PT INR Specimen Type Sample Site POC pH POC pCO2 POC pO2 POC HCO3 POC Total CO2 POC Base Excess O2 Sat Pulse Oximetry ABG pH (Temp Correct) ABG pCO2 (Temp Corrct POC ABG pO2 at Pt Temp POC ABG O2 Sat Chang Test O2 Delivery Device Vent Mode POC FiO2 End Tidal CO2 POC Sodium Sodium POC Potassium Potassium Chloride Carbon Dioxide Anion Gap BUN Creatinine Est Cr Clr Drug Dosing eGFR BUN/Creatinine Ratio Glucose POC Glucose POC Glucose (other) 125 H 122 H 124 H Calcium Phosphorus Magnesium Total Bilirubin AST ALT Alkaline Phosphatase Troponin I High Sens Total Protein Albumin Globulin Albumin/Globulin Ratio 04/06/24 04/06/24 04/06/24 18:52 18:57 23:24 WBC RBC Hgb POC Hgb Hct POC Hct MCV MCH MCHC RDW Std Deviation RDW Coeff of [place] Plt Count MPV Immature Gran % (Auto) Neut % (Auto) Lymph % (Auto) [place] % (Auto) Eos % (Auto) Baso % (Auto) Neut # (Auto) Lymph # (Auto) [place] # (Auto) Eos # (Auto) Baso # (Auto) Immature Gran # (Auto) PT 41.9 H INR 4.4 H Specimen Type Sample Site POC pH POC pCO2 POC pO2 POC HCO3 POC Total CO2 POC Base Excess O2 Sat Pulse Oximetry ABG pH (Temp Correct) ABG pCO2 (Temp Corrct POC ABG pO2 at Pt Temp POC ABG O2 Sat Chang Test O2 Delivery Device Vent Mode POC FiO2 End Tidal CO2 POC Sodium Sodium POC Potassium Potassium Chloride Carbon Dioxide Anion Gap BUN Creatinine Est Cr Clr Drug Dosing eGFR BUN/Creatinine Ratio Glucose POC Glucose POC Glucose (other) 120 H 105 H Calcium Phosphorus Magnesium Total Bilirubin AST ALT Alkaline Phosphatase Troponin I High Sens Total Protein Albumin Globulin Albumin/Globulin Ratio 04/07/24 04/07/24 04/07/24 00:40 01:02 02:05 WBC RBC Hgb POC Hgb Hct POC Hct MCV MCH MCHC RDW Std Deviation RDW Coeff of [place] Plt Count MPV Immature Gran % (Auto) Neut % (Auto) Lymph % (Auto) [place] % (Auto) Eos % (Auto) Baso % (Auto) Neut # (Auto) Lymph # (Auto) [place] # (Auto) Eos # (Auto) Baso # (Auto) Immature Gran # (Auto) PT INR Specimen Type Sample Site POC pH POC pCO2 POC pO2 POC HCO3 POC Total CO2 POC Base Excess O2 Sat Pulse Oximetry ABG pH (Temp Correct) ABG pCO2 (Temp Corrct POC ABG pO2 at Pt Temp POC ABG O2 Sat Chang Test O2 Delivery Device Vent Mode POC FiO2 End Tidal CO2 POC Sodium Sodium POC Potassium Potassium Chloride Carbon Dioxide Anion Gap BUN Creatinine Est Cr Clr Drug Dosing eGFR BUN/Creatinine Ratio Glucose POC Glucose POC Glucose (other) 87 112 H 137 H Calcium Phosphorus Magnesium Total Bilirubin AST ALT Alkaline Phosphatase Troponin I High Sens Total Protein Albumin Globulin Albumin/Globulin Ratio 04/07/24 03:09 WBC RBC Hgb POC Hgb Hct POC Hct MCV MCH MCHC RDW Std Deviation RDW Coeff of [place] Plt Count MPV Immature Gran % (Auto) Neut % (Auto) Lymph % (Auto) [place] % (Auto) Eos % (Auto) Baso % (Auto) Neut # (Auto) Lymph # (Auto) [place] # (Auto) Eos # (Auto) Baso # (Auto) Immature Gran # (Auto) PT INR Specimen Type Sample Site POC pH POC pCO2 POC pO2 POC HCO3 POC Total CO2 POC Base Excess O2 Sat Pulse Oximetry ABG pH (Temp Correct) ABG pCO2 (Temp Corrct POC ABG pO2 at Pt Temp POC ABG O2 Sat Chang Test O2 Delivery Device Vent Mode POC FiO2 End Tidal CO2 POC Sodium Sodium POC Potassium Potassium Chloride Carbon Dioxide Anion Gap BUN Creatinine Est Cr Clr Drug Dosing eGFR BUN/Creatinine Ratio Glucose POC Glucose POC Glucose (other) 158 H Calcium Phosphorus Magnesium Total Bilirubin AST ALT Alkaline Phosphatase Troponin I High Sens Total Protein Albumin Globulin Albumin/Globulin Ratio Diagnostic Findings Echocardiogram: PG Care Time/CCT Total # of Minutes Spent Total Time Spent with Patient: Total time spent is greater than 50% in coordination of care (as documented) at patient's floor/unit and/or counseling patient: Coding Level of Care Code 77204 SUB INP/OBS CARE 25MIN Diagnoses Cardiac arrest I46.9 Metabolic acidosis E87.20 Ischemic cardiomyopathy I25.5 HFrEF (heart failure with reduced ejection fraction) I50.20 Hypertension I10 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
[2024-04-06 19:40] LABS: INR 4.4 (0.9-1.1); Prothrombin Time 41.9 Seconds (9.0-12.0)
[2024-04-06] MEDS: MIDAZOLAM BOLUS FROM BAG IV PRN (23:00)
[2024-04-07 05:15] LABS: Albumin Globulin Ratio 1.1 (0.9-2); Albumin Level 3.2 gm/dl (3.4-5.0); BUN Creatinine Ratio 18.1 (10-20); Bilirubin,Total 0.7 mg/dl (0.2-1.0); Calcium 8.2 mg/dl (8.6-10.3); Creatinine Clr Calc Pharmacy 58.9 ml/min; Phosphorus 2.4 mg/dl (2.5-4.9); Potassium 3.2 mmol/L (3.5-5.1); Total Protein 6.2 gm/dl (6.0-8.3)
[2024-04-07 05:30] LABS: Basophils # (auto) 0.03 K/uL (0.00-0.20); Basophils % (auto) 0.2 %; Eosinophils # (auto) 0.07 K/uL (0.00-0.50); Eosinophils % (auto) 0.4 %; Hematocrit (blood only) 34.2 % (42.0-52.0); Hemoglobin 11.7 g/dl (14.0-18.0); Immature Granulocytes # (auto) 0.06 K/uL (0.01-0.20); Immature Granulocytes % (auto) 0.3 %; Lymphocytes % (auto) 9.2 %; Mean Corpuscular Hemoglobin 30.5 pg (25.0-34.0); Mean Corpuscular Hgb Conc 34.2 g/dL (32.0-36.0); Mean Corpuscular Volume 89.3 fL (80.0-100.0); Mean Platelet Volume 10.6 fL (9.4-12.4); Monocytes # (auto) 1.81 K/uL (0.11-0.59); Monocytes % (auto) 10.5 %; Neutrophils # (auto) 13.73 K/uL (1.40-6.50); Neutrophils % (auto) 79.4 %; Platelet Count 229 K/uL (130-400); RDW Coefficient of Variation 12.5 % (11.5-14.5); RDW Standard Deviation 40.9 fL (36.4-46.3); Red Blood Count 3.83 M/uL (4.70-6.10)
[2024-04-07 05:36] LABS: INR 3.9 (0.9-1.1); Prothrombin Time 37.1 Seconds (9.0-12.0)
[2024-04-07] MEDS: MAGNESIUM OXIDE 400 MG TAB NG SCH ×2 (05:49→18:23)
[2024-04-07] MEDS: POTASSIUM CHLORIDE 20 MEQ/15 ML UDC NG SCH ×2 (05:49→18:23)
[2024-04-07] MEDS: POT PHOSPHATE MONOBASIC W/ SOD TAB NG SCH (05:49)
[2024-04-07 07:29] LABS: Estimated Average Glucose 174 mg/dl; Hemoglobin A1C 7.7 % (4.5-5.6)
[2024-04-07] MEDS: VANCOMYCIN HCL 1,250 MG in SODIUM CHLORIDE 0.9% 250 ML IV ONE (08:47)
--- NOTE | 2024-04-07 09:10 | XRay Report ---
XR chest 1V portable HISTORY: 78 years-old Male fevers acute fever with respiratory failure COMPARISON: 04/06/2024 TECHNIQUE: AP view of the chest FINDINGS: Cardiac silhouette is enlarged. Endotracheal tube overlies the midline, 5.4 cm superior to the midlin e. The heart is enlarged. Pulmonary vascular congestion. No pneumothorax, large pleural effusion or l obar airspace consolidation. Bones appear grossly intact. IMPRESSION: 1. Endotracheal tube overlies the midline, 5.4 cm superior to the indira. 2. Cardiomegaly with pulmonary vascular congestion. ACT 112: Negative or not required by law. The above report was generated using voice recognition software. It may contain grammatical, syntax o r spelling errors. Electronically signed by: Dario Hung M.D. 04/07/2024 9:08 AM
[2024-04-07] MEDS: FAMOTIDINE 20MG IV PUSH 20 MG/5 ML SYR IV SCH (10:04)
--- NOTE | 2024-04-07 10:09 | Neurology Consultation ---
Date of Consultation April 07, 2024 Assessment & Plan (1) Anoxic encephalopathy due to cardiac arrest: This patient suffered a spontaneous cardiac arrest April 05 followed by chest compressions and defibrillation returning circulation after an unknown period of time. Currently, the patient is spontaneously breathing and has multiple cranial nerve function on examination. There are reflexes and withdrawal indicating it least spinal cord as well as other sensory pathway preservation. The patient did not follow any one-step commands or seem to have any significant cortical function on examination. The patient has had no seizure activity but has had some myoclonic jerks at times. I witnessed no abnormal involuntary movements although the patient did have some mild nonspecific movements of his right arm on occasion. EEG on April 05 showed no subclinical seizure activity or potentially epileptogenic discharges. MRI of the brain on April 06 was largely unremarkable although he had some old small vessel ischemic disease in the cerebellar hemispheres bilaterally. Given the preserved spinal cord and brainstem function as well as some activity on EEG, he does not fit the criteria of "brain ". He does, however, have a severe anoxic encephalopathy and his prognosis is poor. Given his decreased ankle reflexes and lack of withdrawal to direct deep pain to the big toes, and his history of diabetes, I suspect there is likely an underlying polyneuropathy involving predominantly sensory fibers. Recommendations: 1. There is no need for anticonvulsants at this time. Should he have seizure activity or have worsening myoclonic jerks, I would consider IV Depakote 2. Continue supportive care and I will follow. 3. There is no indication for repeat EEG today 4. Consideration is given to repeating the MRI of the brain but, again, we might hold off on this today to see how he does and reassess tomorrow Overall, I spent a total of 110 minutes with this case including review of records, review of MRI films, direct evaluation of the patient, report generation, and discussion of the case with the patient and RN at bedside and Dr. Foster at bedside, including differential diagnosis and treatment options. History of Present Illness Reason for Consultation: Patient is a 78-year-old, who was asked to see at the request of Dr. Foster, Requesting Physician: Dr. Foster Attending Physician: Mo Vogt MD History of Present Illness This patient has a history of hypertension, coronary artery disease and systolic heart failure, peripheral arterial disease, type 2 diabetes, asthma, and pulmonary embolism from lower extremity DVT, now on warfarin. Apparently, the patient was at an auto service center on April 05, when he had sudden collapse and unresponsiveness witnessed by individuals at that time. Apparently CPR was started and they initiated defibrillation. Apparently after 3 shocks spontaneous rhythm and circulation resumed. I am uncertain (it is not recorded) how much time there was from the time of the collapse to the return of spontaneous circulation. He was intubated and brought to the emergency room. He has been in the ICU for the last [address] scan of the head showed old cerebellar lacunar infarcts bilaterally and a chest x-ray was unremarkable. An EEG was obtained on April 05 and showed very low amplitude diffuse slowing. There were no but genic discharges noted despite his history of myoclonic jerking at times. MRI of the brain showed no acute stroke but there were the bilateral old cerebellar lacunar infarct. There was some mild old small vessel ischemic disease additionally. I reviewed these films This morning, the patient has been off all sedation for at least 2 hours and has been spontaneously breathing at a respiratory rate of 20. He has some spontaneous movement CBC shows an elevated white count and mild anemia. CHEM profile shows a mildly low sodium and potassium, glucose of 173 and calcium of 8.2. Phosphorus was low at 2.4. Hemoglobin A1c was 7.7. Troponin high-sensitivity on April 06 was 1400 Allergies Allergy/AdvReac Type Severity Reaction Status Date / Time pollen extracts Allergy Intermediate Itchy/Watery Verified 03/23/24 14:18 Eyes/Congestion wool Allergy Intermediate Nasal Verified 03/23/24 14:18 Congestion; sneezing amoxicillin [From Augmentin] AdvReac Intermediate Diarrhea Verified 03/23/24 14:18 clavulanic acid AdvReac Intermediate Diarrhea Verified 03/23/24 14:18 [From Augmentin] lisinopril AdvReac Intermediate Cough/Light Verified 03/23/24 14:18 Headed Home Medications Medication Instructions Recorded Confirmed Type fluticasone furoate 200 1 inh inhalation Q24H 90 days #180 08/05/23 03/23/24 Rx mcg-vilanterol 25 mcg/dose ea inhalation powder (Breo Ellipta) warfarin 5 mg tablet 5 mg PO .COMPLEX #90 tabs 09/29/23 03/23/24 Rx warfarin 7.5 mg tablet 7.5 mg PO .weekly #50 tabs 09/29/23 03/23/24 Rx glimepiride 2 mg tablet 2 mg PO BID 90 days #180 tabs 12/07/23 03/23/24 Rx furosemide 40 mg tablet (Lasix) 40 mg PO QAM 12/28/23 03/23/24 History Cranberry Extra Strength 15,000 mg PO QAM 12/31/23 03/23/24 History aspirin 81 mg tablet,delayed 81 mg PO QAM 12/31/23 03/23/24 History release levothyroxine 50 mcg tablet 50 mcg PO QAM 12/31/23 03/23/24 History (Synthroid) magnesium oxide 500 mg PO BID 12/31/23 03/23/24 History metoprolol succinate 50 mg 50 mg PO QAM 12/31/23 03/23/24 History tablet,extended release 24 hr omeprazole 40 mg capsule,delayed 40 mg PO DAILY PRN Acid Reflux 12/31/23 03/23/24 History release atorvastatin 80 mg tablet (Lipitor) 80 mg PO QPM #90 tabs 03/07/24 03/23/24 Rx potassium chloride 10 mEq See Rx Instructions PO DAILY PRN 03/07/24 03/23/24 Rx tablet,extended release (Klor-Con) Heart Rate #90 tabs Patient History Medical History PAD (peripheral artery disease) Hypothyroidism HTN (hypertension) CAD (coronary artery disease) COPD (chronic obstructive pulmonary disease) Type 2 diabetes mellitus Chronic systolic heart failure [facility] Asthma Anticoagulated on warfarin History of anemia Bronchitis Toe infection hx Embolism, arterial, leg, right Surgical History History of orchiectomy (01/12/24) Robotic Assisted Laparoscopic Incarcerated Right Inguinal Hernia Repair Converted to Open, Right Orchiectomy(Right) - Russell Hoang DO, FACS H/O right inguinal hernia repair (01/12/24) Robotic Assisted Laparoscopic Incarcerated Right Inguinal Hernia Repair Con verted to Open, Right Orchiectomy(Right) - Russell Hoang DO, FACS Hx of oral surgery Teeth removed Hx of cardiac catheterization 2013 Deep vein blood clot of right lower extremity hx Thromboendarterectomy preformed in 2003 [facility] Family History Father Congestive heart failure (CHF) Pancreatic adenocarcinoma Permanent atrial fibrillation Emphysema of lung Brother Asthma Mother No problems noted. Other Clotting disorder Diabetes Denies family history of Prostate cancer Colorectal cancer Social History Smoking Status: Unknown if ever smoked Tobacco Type: Smokeless Tobacco (Dip or Chew) Second Hand Exposure: No; Do You Dip or Chew Tobacco: Yes (Advised); Preferred Language: Gabonese Communication Ability: Unable Visual Impairment: No Limitations Hearing Ability: Normal [employer] Required: No Beliefs That Will Affect Care: None marital status: Current Living Situation: Alone Current Living Situation Comment: unable to assess at this time current occupational status: retired Feels Safe at Home: Yes Childhood Exposure to Second-Hand Smoke: No Diet: low carbohydrate caffeine: Yes during the past year weight has: remained stable Seatbelt Use: always Sunscreen Use: No Assistive Devices: Glasses and Other Review of Systems Review of Systems: Unobtainable due to cognitive status and Unobtainable due to endotracheal tube Exam (Neuro) Physical Exam: The patient is lying in bed, mostly without spontaneous movement, breathing on his own with a respiratory rate of approximately 20. There is some variability of his respiratory depth but overall there was no Francis-Ventura or other noticeable abnormal respiratory rhythm. On rare occasion, spontaneous movement of the right upper extremity (flickering and moving slightly off the bed only) The patient did not respond to voice or shout. Sternal rub produced some slight right upper extremity movement on occasion. Later on in the examination, there was 1 time when I wondered if the patient was moving his eyelids to command but this was not clear and not ever repeated. Blood pressure was 126/64 and pulse was 77 and regular. Temperature was 37.4 and respiratory rate 19. Eyes open passively and there is no resistance. When let go the eyelids remain open for some time. Gaze was slightly disconjugate with the right eye riding a little lower than the left eye which was more midline. They did remove some in a vertical fashion but not in a horizontal way. There was no spontaneous nystagmus. With passive movement of the head horizontally, there was some ocul ocephalic movements with a greater range turning head to the right than the left. There was some positive oculocephalics with vertical movement of the head in both eyes. There was positive corneal reflexes bilaterally. There is no obvious facial droop and there was no reaction to deep pain in the supraorbital notch bilaterally. Cold water calorics in the left ear (40 cc) produced no immediate response but the eyes both drifted slowly to the left. The eyes seem to widen and water with the cold water calorics on the left. There was no nystagmus. Cold water calorics in the right ear produced no change at all. The patient had a positive cough to suction and a positive gag on the left. It was not appreciated on the right. The neck was supple without rigidity. The arms have some mild to moderate decreased tone but are not "floppy". The legs have retained some tone and seem relatively normal. Reflexes are 2/4 in the biceps and triceps bilaterally. Brachioradialis reflexes were 1/4 bilaterally. Quadriceps tendon reflexes were 3/4 bilaterally without clonus. Achilles tendon reflexes were trace bilaterally. Toes seemed upgoing with plantar stimulation bilaterally and there was fairly quick withdrawal of the lower extremities with the procedure bilaterally. However, with deep pain in the big toes there was a lesser withdrawal on the more delayed nature bilaterally. Deep pain in the distal left hand produced some withdrawal on the left with some spontaneous movement on the right. Deep pain in the right distal hand produce less withdrawal than on the left. Results & Data Vital Signs (Past 12 Hours) Vital Signs Temp Pulse Resp BP Pulse Ox FiO2 04/07/24 08:57 77 19 99 30 04/07/24 07:58 59 L 20 98 26 04/07/24 06:15 37.4 C 60 20 99 04/07/24 06:00 126/64 04/07/24 06:00 126/64 04/07/24 05:45 37.4 C 61 20 99 04/07/24 05:36 37.4 C 61 20 99 04/07/24 05:27 37.4 C 62 20 99 04/07/24 05:00 128/66 04/07/24 05:00 128/66 04/07/24 04:57 37.4 C 65 20 98 04/07/24 04:39 37.4 C 65 20 99 04/07/24 04:30 160/81 H 04/07/24 04:30 160/81 H 04/07/24 04:24 37.4 C 74 20 100 04/07/24 04:03 37.4 C 61 20 98 04/07/24 04:00 132/66 04/07/24 04:00 132/66 04/07/24 04:00 132/66 04/07/24 04:00 04/07/24 03:48 37.4 C 60 20 98 04/07/24 03:33 37.5 C 60 20 98 04/07/24 03:30 133/67 04/07/24 03:30 133/67 04/07/24 03:30 133/67 04/07/24 03:06 37.6 C H 61 20 98 04/07/24 03:03 37.6 C H 61 20 98 04/07/24 03:00 134/66 04/07/24 03:00 134/66 04/07/24 02:54 37.6 C H 62 20 98 04/07/24 02:34 64 21 99 26 04/07/24 02:33 37.6 C H 64 20 98 04/07/24 02:30 122/66 04/07/24 02:30 122/66 04/07/24 02:27 37.6 C H 64 20 98 04/07/24 02:24 37.6 C H 65 20 98 04/07/24 02:00 37.4 C 70 20 96 04/07/24 02:00 142/69 H 04/07/24 01:36 37.3 C 86 20 91 04/07/24 01:30 158/90 H 04/07/24 01:27 37.4 C 72 20 98 04/07/24 01:24 37.4 C 65 20 99 04/07/24 01:03 37.4 C 65 20 99 04/07/24 01:00 132/69 04/07/24 01:00 132/69 04/07/24 00:57 37.4 C 66 20 99 04/07/24 00:33 37.4 C 65 20 99 04/07/24 00:30 137/72 04/07/24 00:30 137/72 04/07/24 00:24 37.3 C 71 23 97 04/07/24 00:15 37.4 C 63 20 99 04/07/24 00:00 58 L 04/07/24 00:00 26 04/07/24 00:00 37.4 C 70 20 98 04/06/24 23:47 57 L 20 99 26 04/06/24 23:39 37.6 C H 60 20 99 04/06/24 23:30 131/70 04/06/24 23:27 37.6 C H 58 L 20 99 04/06/24 23:16 92/57 L 04/06/24 23:12 37.6 C H 65 20 98 04/06/24 23:00 37.5 C 71 20 97 04/06/24 22:57 37.5 C 78 14 94 04/06/24 22:42 37.5 C 67 20 99 04/06/24 22:30 114/61 04/06/24 22:30 114/61 04/06/24 22:24 37.5 C 61 20 99 04/06/24 22:12 37.6 C H 61 20 100 04/06/24 22:03 37.6 C H 61 20 99 04/06/24 22:00 115/64 PG Care Time/CCT Total # of Minutes Spent Total Time Spent with Patient: Total time spent is greater than 50% in coordination of care (as documented) at patient's floor/unit and/or counseling patient: Coding Level of Care Code 04883 INT INP/OBS CARE 3/75MIN Diagnoses Anoxic encephalopathy due to cardiac arrest G93.1; I46.9 Time Spent (min) 110
--- NOTE | 2024-04-07 10:10 | Critical Care Progress Note ---
Date of Service April 07, 2024 Assessment & Plan (1) Cardiac arrest: (2) Unresponsive: (3) Metabolic acidosis: (4) Coronary artery disease: Plan 78-year-old male with a past medical history of diabetes, systolic cardiomyopathy, coronary artery disease, peripheral artery disease, COPD and asthma presenting to the hospital due to a cardiac arrest. Neurologic: Unknown downtime, but ROSC obtained in the field. Patient completely unresponsive to commands, but does withdraw to painful stimuli. He does spontaneously lift his arms when he is suctioned. He is tolerating a spontaneous breathing trial. EEG nonspecific without epileptiform activity. MRI brain without acute findings, but chronic lacunar infarcts noted. Severe right and mild left mastoiditis. Repeat MRI at this time. Appreciate neurology input. No evidence of higher cortical functions, but brainstem reflexes intact. Prognosis at this time is quite guarded. Will limit sedation to follow his neurostatus closely. Maintain normothermia. He has had intermittent fevers probably due to neurogenic fever. Maintain euglycemia. Head of the bed above 35 degrees. Urine drug screen positive for marijuana. Ammonia normal. TSH normal. Pulmonary: Patient currently intubated for airway protection. On minimal ventilatory support. Trend ABGs which have thus far been normal. CT chest completed 03/01/2024 revealed no evidence of intrathoracic metastatic disease. 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 Low suspicion pulmonary nodules and pleural-based nodules measuring up to 6 mm were seen. 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 Chest x-ray on admission with clear lung gillespie and no evidence of pneumothorax or pneumonia. Endotracheal tube advanced today by about 1.5 cm. Cardiovascular: Left heart catheterization 04/05/2025 with diffuse coronary artery disease. Patient with a known history of systolic heart failure. He is maintaining his pressures currently. Maintain maps above 65 mmHg. Patient also has a history of PE and is anticoagulated with warfarin. INR currently 3.9. Per lining closer. Echo with an EF of about 10%. Troponins downtrending. Patient also currently with ventricular arrhythmia as he was shocked 3 times by an AED. Will continue amiodarone for the time being given presumed ventricular dysrhythmia. Gastrointestinal: Continue tube feeds. OG tube advanced today by about 5 cm. Patient does have a history of cholelithiasis. No acute evidence of cholangitis at this time. LFTs stable and improving AST. Pepcid for GI prophylaxis. Renal: Aguirre catheter placed in the ICU. Will monitor urine output closely. Urine output decreased this morning. Will give a 250 cc normal saline bolus. Maintain potassium above 4 and magnesium above 2. TROY resolving. Renal ultrasound without evidence of obstructive uropathy. Lactic acidosis and metabolic acidosis is resolved. Infectious disease: Patient with low-grade fever overnight. Urinalysis was positive. Urine cultures pending. Blood cultures pending and negative to date. White count slightly elevated. MRSA screen was negative. Ceftriaxone started 04/06/2024, but will likely discontinue if urine culture negative. Repeat procalcitonin today. 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 Monitor INR daily. INR remains therapeutic. Endocrine: TSH unremarkable. Maintain euglycemia with insulin drip as needed. Patient with a history of diabetic mellitus. Lines and tubes: Left femoral line placed 04/05/2024. Right femoral arterial line placed 04/06/2024. Aguirre catheter placed 04/05/24. Intubated in the field 04/05/2024. VTE prophylaxis: INR therapeutic at 3.9 CODE STATUS: Presumed to be a full code at this time is no family readily available. Unfortunately we have no contacts available for the patient's family. No surrogate decision-maker present at this time. 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 Will consult ethics and palliative care medicine to assist in his care. Patient does have a friend Amanuel who presents daily to visit with the patient who indicates that the patient based on his knowledge she would likely not want to remain intubated and on artificial means of life support if he was in a persistent vegetative state. Disposition: ICU Discussed on multidisciplinary rounds. I have personally spent 53 minutes of critical care time in the direct management of this patient. This is a life/limb threatening event. This includes time spent evaluating patient, direct bedside care, chart review, placing orders, interpretation of diagnostic studies, discussion with consultants, patient, and family members, as well as other required patient management activities. This time is exclusive of all separately billable procedures, and teaching time and separate from and in addition to any other critical care service time. Thank you for allowing us to participate in the care of this patient. Admission and Anticipated Discharge Date Admission Date: April 05, 2024 Subjective Patient off sedation this morning. Remains on low-dose Levophed. No meaningful purposeful movement at this time. No significant acute events overnight of this morning. I discussed the case extensively with neurology. He was switched to a spontaneous breathing trial has been tolerating this well on pressure support of 5/5. Review of Systems Review of Systems: Unobtainable due to cognitive status, Unobtainable due to endotracheal tube and Unobtainable due to reduced consciousness Physical Exam Constitutional: + altered mental status and + mechanical ly ventilated Eyes: Pupils pinpoint and minimally reactive to light. Anicteric sclera. ENMT: Endotracheal tube in place. Neck: trachea midline, no thyromegaly Respiratory: Rhonchi noted bilaterally in the upper lung gillespie. Cardiovascular: RRR, no murmur, no edema Chest (Breasts): normal inspection/palpation of breasts Gastrointestinal (Abdomen): normal bowel sounds, soft, nontender, no hepatosplenomegaly Musculoskeletal: no cyanosis or clubbing, extremities motor strength 5/5 Neurologic: Unresponsive and difficult to assess. Occasional myoclonic jerking. Gag reflex intact. Corneals intact. Withdraws from deep nailbed pressure. Upward Babinski bilaterally. Negative cold caloric testing. Psychiatric: Unresponsive Results & Data Results & Data Vital Signs (Past 12 Hours) Vital Signs Temp Pulse Resp BP Pulse Ox FiO2 04/07/24 08:57 77 19 99 30 04/07/24 07:58 59 L 20 98 26 04/07/24 06:15 37.4 C 60 20 99 04/07/24 06:00 126/64 04/07/24 06:00 126/64 04/07/24 05:45 37.4 C 61 20 99 04/07/24 05:36 37.4 C 61 20 99 04/07/24 05:27 37.4 C 62 20 99 04/07/24 05:00 128/66 04/07/24 05:00 128/66 04/07/24 04:57 37.4 C 65 20 98 04/07/24 04:39 37.4 C 65 20 99 04/07/24 04:30 160/81 H 04/07/24 04:30 160/81 H 04/07/24 04:24 37.4 C 74 20 100 04/07/24 04:03 37.4 C 61 20 98 04/07/24 04:00 132/66 04/07/24 04:00 132/66 04/07/24 04:00 132/66 04/07/24 04:00 26 04/07/24 03:48 37.4 C 60 20 98 04/07/24 03:33 37.5 C 60 20 98 04/07/24 03:30 133/67 04/07/24 03:30 133/67 04/07/24 03:30 133/67 04/07/24 03:06 37.6 C H 61 20 98 04/07/24 03:03 37.6 C H 61 20 98 04/07/24 03:00 134/66 04/07/24 03:00 134/66 04/07/24 02:54 37.6 C H 62 20 98 04/07/24 02:34 64 21 99 26 04/07/24 02:33 37.6 C H 64 20 98 04/07/24 02:30 122/66 04/07/24 02:30 122/66 04/07/24 02:27 37.6 C H 64 20 98 04/07/24 02:24 37.6 C H 65 20 98 04/07/24 02:00 37.4 C 70 20 96 04/07/24 02:00 142/69 H 04/07/24 01:36 37.3 C 86 20 91 04/07/24 01:30 158/90 H 04/07/24 01:27 37.4 C 72 20 98 04/07/24 01:24 37.4 C 65 20 99 04/07/24 01:03 37.4 C 65 20 99 04/07/24 01:00 132/69 04/07/24 01:00 132/69 04/07/24 00:57 37.4 C 66 20 99 04/07/24 00:33 37.4 C 65 20 99 04/07/24 00:30 137/72 04/07/24 00:30 137/72 04/07/24 00:24 37.3 C 71 23 97 04/07/24 00:15 37.4 C 63 20 99 04/07/24 00:00 58 L 04/07/24 00:00 26 04/07/24 00:00 37.4 C 70 20 98 04/06/24 23:47 57 L 20 99 26 04/06/24 23:39 37.6 C H 60 20 99 04/06/24 23:30 131/70 04/06/24 23:27 37.6 C H 58 L 20 99 04/06/24 23:16 92/57 L 04/06/24 23:12 37.6 C H 65 20 98 04/06/24 23:00 37.5 C 71 20 97 04/06/24 22:57 37.5 C 78 14 94 04/06/24 22:42 37.5 C 67 20 99 04/06/24 22:30 114/61 04/06/24 22:30 114/61 04/06/24 22:24 37.5 C 61 20 99 04/06/24 22:12 37.6 C H 61 20 100 04/06/24 22:03 37.6 C H 61 20 99 Coding Level of Care Code 72082 CRITICAL CARE 1ST 30-74M Diagnoses Cardiac arrest I46.9 Unresponsive R41.89 Metabolic acidosis E87.20 Coronary artery disease I25.10
[2024-04-07 10:28] LABS: iSTAT Art Bld Gas pCO2 Correct 38 mmHg (35-46); iSTAT Art Bld Gas pH Corrected 7.403 (7.35-7.45); iSTAT Arterial Blood Gas HCO3 24 meg/L (19-24); iSTAT Arterial Blood Gas pCO2 37 mmHg (35-46); iSTAT Arterial Blood Gas pH 7.42 (7.35-7.45); iSTAT Arterial Blood Gas pO2 85 mmHg (80-95); iSTAT Arterial Blood Gas pO2 C 89; iSTAT Carbon Dioxide 25 mmol/L (24-31); iSTAT FiO2 30 %; iSTAT Hematocrit 31 % (42-52); iSTAT Hemoglobin 10.5 g/dl (14.0-18.0); iSTAT Potassium 3.3 mmol/L (3.3-5.0); iSTAT Sample Type Arterial; iSTAT Sodium 134 mmol/L (135-144); iSTAT SpO2 99
--- NOTE | 2024-04-07 11:47 | Communication Note ---
Date of Service: April 07, 2024 Exhaustive efforts have been made to reach out to patient's existing family. Unfortunately, there is no available contact information for the patient's biological family members including his brothers or parents. I have searched on the Internet to see if there is any family available to contact to discuss the patient's current condition. I have also reached out to the patient's PCP, Dr. Wren, who has no readily available contact information for the patient's family. I have called the patient's home phone number and left a voicemail and was unable to reach anybody at his home phone number to discuss his care. I have also contacted the ethics committee for this [facility] and palliative care medicine who is assisting us in the care of this patient. Case management has also been involved and has made attempts at contacting potential surrogate decision makers. Please see their separate documentation for further details. Bedside nursing is also made several attempts at looking for patient contact information of potential surrogate decision makers and have been unsuccessful in finding any potential contacts. Please see their separate documentation for details. Patient is currently in a vegetative state and unable to participate in any goals of care discussion. We have no current legal healthcare proxy for the patient. Patient has been visited daily since this current admission by his friend, Amanuel Webb, who has known the patient for the past 17 years. Amanuel indicates that the patient would not want to be in a persistent vegetative state and supported by artificial means such as tube feeds, mechanical ventilation and pressor support and would advocate for the patient to be extubated on comfort measures only if there is no clear evidence of meaningful neurological recovery. [employer] was also contacted and he was deemed to not be a candidate for organ donation due to his history of liposarcoma.
[2024-04-07] MEDS: SODIUM CHLORIDE 0.9% 250 ML IV SCH (11:54)
[2024-04-07] MEDS: TUBE FEEDING WATER FLUSH OG SCH (11:55)
--- NOTE | 2024-04-07 14:12 | Pharmacy Report ---
Pharmacy Glycemic Short Note 2 - Date of Service April 07, 2024 - Glycemic Short BSG Results (Last 24 hours): 04/06/24 04/06/24 04/06/24 14:57 16:08 16:42 Glucose POC Glucose (other) 154 H 125 H 122 H 04/06/24 04/06/24 04/06/24 18:10 18:57 23:24 Glucose POC Glucose (other) 124 H 120 H 105 H 04/07/24 04/07/24 04/07/24 00:40 01:02 02:05 Glucose POC Glucose (other) 87 112 H 137 H 04/07/24 04/07/24 04/07/24 03:09 04:08 04:22 Glucose 173 H POC Glucose (other) 158 H 171 H 04/07/24 04/07/24 04/07/24 05:04 06:03 07:22 Glucose POC Glucose (other) 179 H 179 H 193 H 04/07/24 04/07/24 04/07/24 08:09 09:10 09:57 Glucose POC Glucose (other) 197 H 190 H 170 H 04/07/24 04/07/24 04/07/24 11:07 11:59 13:17 Glucose POC Glucose (other) 180 H 157 H 168 H OUTPATIENT ANTIDIABETIC REGIMEN: * glimepiride 2mg PO BID * empagliflozin 10mg PO daily HbA1C: 7.7 ASSESSMENT: 04/07: * BSGs largely within goal range since insulin drip initiation. Continues on insulin infusion per hyperglycemia protocol. Currently running @ 2.3unit/hr. * Remains intubated and requiring vasopressor support. Peptamen 1.5 initiated and running @ 20ml/hr. * Continue insulin infusion while intubated and requiring vasopressors. Novolog q6 with carb coverage for tube feeds. 04/06: * Pt is a 78 year old male admitted s/p cardiac arrest. History of DM2 on PO therapies @ home. Pharmacy consulted to assist with inpatient glycemic management. * BSGs elevated since arrival: [phone]. Intubated and requiring vasopressor support. Initially started on SQ insulin. Received 18 units of bolus insulin yesterday and 10 units of basal early this AM. * Given hyperglycemia in setting of critical illness with poor control on trial of SQ, will begin insulin infusion per hyperglycemia protocol. PLAN FOR INPATIENT GLYCEMIC CONTROL: * Hold outpatient oral diabetes medications * Basal insulin * Insulin infusion (goal BSG 110-180, severe stress) per hyperglycemia protocol * Bolus insulin * NovoLog per scale ACHS or Q6hrs while NPO * Goal Range: Low 110 mg/dL - High 180 mg/dL * Correction Factor: - mg/dL/unit * Nutritional / Prandial insulin per carb ratio of 1 unit per 8 grams CHO consumed
--- NOTE | 2024-04-07 14:46 | Magnetic Resonance Report ---
MR brain wo con HISTORY: 78 years-old Male anoxic brain injury COMPARISON: 04/06/2024 TECHNIQUE: Multiplanar multisequence MRI of the brain was obtained without IV contrast FINDINGS: No restricted diffusion. Midline structures appear unremarkable. There is no acute intracranial hemor rhage, midline shift, abnormal extra-axial collection, hydrocephalus or intra-axial mass. Chronic cer ebellar lacunar infarcts. The cerebral venous sinuses and major arterial flow voids appear patent. Pr ior bilateral injury repair. On the monitor because of thickening of the ethmoid air cells. Small foc us of polypoid mucosal thickening within the dependent right maxillary sinus. Layering nasopharyngeal secretions. Small left with moderate right mastoid effusions. Involutional changes with mild T2/FLAIR hyperintense foci throughout the white matter suggestive of p robable chronic microvascular ischemic disease. IMPRESSION: 1. No acute intracranial abnormality. No acute or subacute infarct. 2. Chronic cerebellar lacunar infarcts. 3. Moderate sized right mastoid effusion. 4. Layering secretions within the airway, likely secondary to intubation. ACT 112: Negative or not required by law. The above report was generated using voice recognition software. It may contain grammatical, syntax o r spelling errors. Electronically signed by: Dario Hung M.D. 04/07/2024 2:44 PM
--- NOTE | 2024-04-07 15:28 | Palliative Care Consultation ---
Date of Consultation April 07, 2024 Assessment & Plan (1) Advance care planning: (2) Palliative care by specialist: Plan Met with pt's friend of yolanda - Amanuel Webb outside pt room, jointly with ICU attending Piter Foster MD, RUBEN Ibanez, and BSRN. Amanuel shared that he has been friends with the pt for more than 17yrs and during that time pt rarely spoke of family and although he did at one point mention 2 brothers, the patient has not spoken with either brother in the 17y Amanuel has known the pt. Amanuel shared that although he is aware the pt has 2 siblings, pt never mentioned their names nor whether they were still alive. Reportedly when the pt was questioned further he would respond "we don't talk about that". Amanuel shared that he and the pt met in Amanuel's father's restaurant 17 years ago and have been close friends ever since. He shared that the pt is very private and has never been active on social media or any other public outlets. Amanuel shared that the pt was "a loner" but they have had a close relationship and he is aware of pt's wishes in regards to GOC. Amanuel shared a document that the patient had composed for him in the event he dies or is irreversibly incapacitated. The "document" is a small piece of paper indicating the pt's chosen contractor buyer to settle his affairs, and information about his prearrangements for post mortem care. Amanuel shared that after the pt was admitted he looked through pt's home and cellphone contacts in attempt to locate contact information about ANY family, but found nothing. Multiple unsuccessful attempts to locate/contact any family have been made by several staff members including case management, ICU and ED physicians and nurses and are clearly documented in the chart. Thorough review of EMR does not reveal any family contacts but did reveal a Russell Mishok as emergency contact in 2017, unclear relationship. I attempted to call the number listed. Phone cannot take incoming calls, perhaps disconnected. [facility] Legal department was contacted by case management. They advise that if dilligent efforts have been made to identify / find / contact family unsuccessfully the next logical step is to follow [place] [id number] and the medical decisions maker lead customer service representative hierarchy therein. In this particular case, given unsuccessful attempts after diligent efforts to locate family, If pt does have living family, they are not reasonably avalaible. Per [place] Act 169 section 5422 definition reasonably available is defined as "readily able to be contacted without undue effort and willing and able to act in a timely manner considering the urgency of the individual's health care needs". In this case we have located no family. Act 169 addresses this section 5460 article d1, in absence of patient designated proxy and no family that has been "reasonably available" next in legal hierarchy would be "an adult who has knowledge of the principle's preferences and values, including, but not limited to, lutheran and moral beliefs, to assess how the principle would make health care decisions". Amanuel Webb ([phone]) has known this pt for 17yrs, knows him well, has been a close friend to the patient and, at least from this practitioner's perspective, earnestly wishes to act in the pt's best interest. He certainly fills the requirements of "an adult who has knowledge of" the patient's values and wishes. Amanuel has expressed that the patient would likely find his current dependence on machines unacceptable and would like to pursue WLST due to patient's poor neurological prognosis. History of Present Illness Reason for Consultation: anoxic brain injury, vented, no family Requesting Physician: Piter Foster MD Attending Physician: Mo Vogt MD History of Present Illness This patient has a history of hypertension, coronary artery disease and systolic heart failure, peripheral arterial disease, type 2 diabetes, asthma, and pulmonary embolism from lower extremity DVT, now on warfarin. Apparently, the patient was at an auto service center on April 05, when he had sudden collapse and unresponsiveness witnessed by individuals at that time. Apparently bystander CPR was started and EMS called. ROSC was achieved after 3 rounds of ACLS/defib. Downtime p/t ROSC unclear. He was intubated and brought to the emergency room. 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 EEG on April 05 and showed very low amplitude diffuse slowing per neurology notes. Allergies Allergy/AdvReac Type Severity Reaction Status Date / Time pollen extracts Allergy Intermediate Itchy/Watery Verified 03/23/24 14:18 Eyes/Congestion wool Allergy Intermediate Nasal Verified 03/23/24 14:18 Congestion; sneezing amoxicillin [From Augmentin] AdvReac Intermediate Diarrhea Verified 03/23/24 14:18 clavulanic acid AdvReac Intermediate Diarrhea Verified 03/23/24 14:18 [From Augmentin] lisinopril AdvReac Intermediate Cough/Light Verified 03/23/24 14:18 Headed Home Medications Medication Instructions Recorded Confirmed Type fluticasone furoate 200 1 inh inhalation Q24H 90 days #180 08/05/23 03/23/24 Rx mcg-vilanterol 25 mcg/dose ea inhalation powder (Breo Ellipta) warfarin 5 mg tablet 5 mg PO .COMPLEX #90 tabs 09/29/23 03/23/24 Rx warfarin 7.5 mg tablet 7.5 mg PO .weekly #50 tabs 09/29/23 03/23/24 Rx glimepiride 2 mg tablet 2 mg PO BID 90 days #180 tabs 12/07/23 03/23/24 Rx furosemide 40 mg tablet (Lasix) 40 mg PO QAM 12/28/23 03/23/24 History Cranberry Extra Strength 15,000 mg PO QAM 12/31/23 03/23/24 History aspirin 81 mg tablet,delayed 81 mg PO QAM 12/31/23 03/23/24 History release levothyroxine 50 mcg tablet 50 mcg PO QAM 12/31/23 03/23/24 History (Synthroid) magnesium oxide 500 mg PO BID 12/31/23 03/23/24 History metoprolol succinate 50 mg 50 mg PO QAM 12/31/23 03/23/24 History tablet,extended release 24 hr omeprazole 40 mg capsule,delayed 40 mg PO DAILY PRN Acid Reflux 12/31/23 03/23/24 History release atorvastatin 80 mg tablet (Lipitor) 80 mg PO QPM #90 tabs 03/07/24 03/23/24 Rx potassium chloride 10 mEq See Rx Instructions PO DAILY PRN 03/07/24 03/23/24 Rx tablet,extended release (Klor-Con) Heart Rate #90 tabs Patient History Medical History PAD (peripheral artery disease) Hypothyroidism HTN (hypertension) CAD (coronary artery disease) COPD (chronic obstructive pulmonary disease) Type 2 diabetes mellitus Chronic systolic heart failure [facility] Asthma Anticoagulated on warfarin History of anemia Bronchitis Toe infection hx Embolism, arterial, leg, right Surgical History History of orchiectomy (01/12/24) Robotic Assisted Laparoscopic Incarcerated Right Inguinal Hernia Repair Converted to Open, Right Orchiectomy(Right) - Russell Hoang DO, FACS H/O right inguinal hernia repair (01/12/24) Robotic Assisted Laparoscopic Incarcerated Right Inguinal Hernia Repair Converted to Open, Right Orchiectomy(Right) - Russell Hoang DO, FACS Hx of oral surgery Teeth removed Hx of cardiac catheterization 2013 Deep vein blood clot of right lower extremity hx Thromboendarterectomy preformed in 2003 [facility] Family History Father Congestive heart failure (CHF) Pancreatic adenocarcinoma Permanent atrial fibrillation Emphysema of lung Brother Asthma Mother No problems noted. Other Clotting disorder Diabetes Denies family history of Prostate cancer Colorectal cancer Social History Smoking Status: Unknown if ever smoked Tobacco Type: Smokeless Tobacco (Dip or Chew) Second Hand Exposure: No; Do You Dip or Chew Tobacco: Yes (Advised); Preferred Language: Korean Communication Ability: Unable Visual Impairment: No Limitations Hearing Ability: Normal Plating Operator Required: No Beliefs That Will Affect Care: None marital status: Current Living Situation: Alone Current Living Situation Comment: unable to assess at this time current occupational status: retired Feels Safe at Home: Yes Childhood Exposure to Second-Hand Smoke: No Diet: low carbohydrate caffeine: Yes during the past year weight has: remained stable Seatbelt Use: always Sunscreen Use: No Assistive Devices: Glasses and Other Review of Systems Review of Systems: Unobtainable due to reduced consciousness Physical Exam Constitutional: + altered mental status and + mechanical ly ventilated Eyes: Pupils pinpoint and minimally reactive to light. Anicteric sclera. ENMT: orally intubated. Neck: trachea midline, no thyromegaly Respiratory: Rhonchi noted bilaterally in the upper lung gillespie. Cardiovascular: RRR, no murmur, no edema Gastrointestinal (Abdomen): normal bowel sounds, soft, nontender, no hepatosplenomegaly Musculoskeletal: Extremities: extremities normal to inspection PJ fully, pt unresponsive with nonpurposeful movements only Neurologic: Unresponsive, off sedation, orally intubated and mechanically ventilated. Occasional myoclonic jerking. Psychiatric: Results & Data Vital Signs (Past 12 Hours) Vital Signs Temp Pulse Resp BP Pulse Ox FiO2 04/07/24 08:57 77 19 99 30 04/07/24 07:58 59 L 20 98 26 04/07/24 06:15 37.4 C 60 20 99 04/07/24 06:00 126/64 04/07/24 06:00 126/64 04/07/24 05:45 37.4 C 61 20 99 04/07/24 05:36 37.4 C 61 20 99 04/07/24 05:27 37.4 C 62 20 99 04/07/24 05:00 128/66 04/07/24 05:00 128/66 04/07/24 04:57 37.4 C 65 20 98 04/07/24 04:39 37.4 C 65 20 99 04/07/24 04:30 160/81 H 04/07/24 04:30 160/81 H 04/07/24 04:24 37.4 C 74 20 100 04/07/24 04:03 37.4 C 61 20 98 04/07/24 04:00 132/66 04/07/24 04:00 132/66 04/07/24 04:00 132/66 04/07/24 04:00 26 04/07/24 03:48 37.4 C 60 20 98 04/07/24 03:33 37.5 C 60 20 98 04/07/24 03:30 133/67 04/07/24 03:30 133/67 04/07/24 03:30 133/67 04/07/24 03:06 37.6 C H 61 20 98 04/07/24 03:03 37.6 C H 61 20 98 04/07/24 03:00 134/66 04/07/24 03:00 134/66 04/07/24 02:54 37.6 C H 62 20 98 04/07/24 02:34 64 21 99 26 04/07/24 02:33 37.6 C H 64 20 98 04/07/24 02:30 122/66 04/07/24 02:30 122/66 04/07/24 02:27 37.6 C H 64 20 98 04/07/24 02:24 37.6 C H 65 20 98 04/07/24 02:00 37.4 C 70 20 96 04/07/24 02:00 142/69 H 04/07/24 01:36 37.3 C 86 20 91 04/07/24 01:30 158/90 H 04/07/24 01:27 37.4 C 72 20 98 04/07/24 01:24 37.4 C 65 20 99 04/07/24 01:03 37.4 C 65 20 99 04/07/24 01:00 132/69 04/07/24 01:00 132/69 04/07/24 00:57 37.4 C 66 20 99 04/07/24 00:33 37.4 C 65 20 99 04/07/24 00:30 137/72 04/07/24 00:30 137/72 04/07/24 00:24 37.3 C 71 23 97 04/07/24 00:15 37.4 C 63 20 99 04/07/24 00:00 58 L 04/07/24 00:00 26 04/07/24 00:00 37.4 C 70 20 98 04/06/24 23:47 57 L 20 99 26 04/06/24 23:39 37.6 C H 60 20 99 04/06/24 23:30 131/70 04/06/24 23:27 37.6 C H 58 L 20 99 04/06/24 23:16 92/57 L 04/06/24 23:12 37.6 C H 65 20 98 04/06/24 23:00 37.5 C 71 20 97 04/06/24 22:57 37.5 C 78 14 94 04/06/24 22:42 37.5 C 67 20 99 04/06/24 22:30 114/61 04/06/24 22:30 114/61 04/06/24 22:24 37.5 C 61 20 99 04/06/24 22:12 37.6 C H 61 20 100 04/06/24 22:03 37.6 C H 61 20 99 04/06/24 22:00 115/64 Laboratory Results Abnormal lab results 04/06/24 04/06/24 04/06/24 Range/Units 16:08 16:42 18:10 WBC (4.8-10.8) K/ul RBC (4.70-6.10) M/uL Hgb (14.0-18.0) g/dl POC Hgb (14.0-18.0) g/dl Hct (42.0-52.0) % POC Hct (42-52) % Neut # (Auto) (1.40-6.50) K/uL Hitchcock # (Auto) (0.11-0.59) K/uL PT (9.0-12.0) Seconds INR (0.9-1.1) POC ABG O2 Sat (90-95) % POC Sodium (135-144) mmol/L Sodium (136-145) mmol/L Potassium (3.5-5.1) mmol/L Glucose (70-99(Fasting)) mg/dl POC Glucose (other) 125 H 122 H 124 H (70-99) mg/dl Hemoglobin A1c (4.5-5.6) % Calcium (8.6-10.3) mg/dl Phosphorus (2.5-4.9) mg/dl Albumin (3.4-5.0) gm/dl Procalcitonin (0-0.5) ng/ml Random Vancomycin (10-20) mcg/ml 04/06/24 04/06/24 04/06/24 Range/Units 18:52 18:57 23:24 WBC (4.8-10.8) K/ul RBC (4.70-6.10) M/uL Hgb (14.0-18.0) g/dl POC Hgb (14.0-18.0) g/dl Hct (42.0-52.0) % POC Hct (42-52) % Neut # (Auto) (1.40-6.50) K/uL Hitchcock # (Auto) (0.11-0.59) K/uL PT 41.9 H (9.0-12.0) Seconds INR 4.4 H (0.9-1.1) POC ABG O2 Sat (90-95) % POC Sodium (135-144) mmol/L Sodium (136-145) mmol/L Potassium (3.5-5.1) mmol/L Glucose (70-99(Fasting)) mg/dl POC Glucose (other) 120 H 105 H (70-99) mg/dl Hemoglobin A1c (4.5-5.6) % Calcium (8.6-10.3) mg/dl Phosphorus (2.5-4.9) mg/dl Albumin (3.4-5.0) gm/dl Procalcitonin (0-0.5) ng/ml Random Vancomycin (10-20) mcg/ml 04/07/24 04/07/24 04/07/24 Range/Units 01:02 02:05 03:09 WBC (4.8-10.8) K/ul RBC (4.70-6.10) M/uL Hgb (14.0-18.0) g/dl POC Hgb (14.0-18.0) g/dl Hct (42.0-52.0) % POC Hct (42-52) % Neut # (Auto) (1.40-6.50) K/uL Hitchcock # (Auto) (0.11-0.59) K/uL PT (9.0-12.0) Seconds INR (0.9-1.1) POC ABG O2 Sat (90-95) % POC Sodium (135-144) mmol/L Sodium (136-145) mmol/L Potassium (3.5-5.1) mmol/L Glucose (70-99(Fasting)) mg/dl POC Glucose (other) 112 H 137 H 158 H (70-99) mg/dl Hemoglobin A1c (4.5-5.6) % Calcium (8.6-10.3) mg/dl Phosphorus (2.5-4.9) mg/dl Albumin (3.4-5.0) gm/dl Procalcitonin (0-0.5) ng/ml Random Vancomycin (10-20) mcg/ml 04/07/24 04/07/24 04/07/24 Range/Units 04:08 04:22 05:04 WBC 17.30 H (4.8-10.8) K/ul RBC 3.83 L (4.70-6.10) M/uL Hgb 11.7 L (14.0-18.0) g/dl POC Hgb (14.0-18.0) g/dl Hct 34.2 L (42.0-52.0) % POC Hct (42-52) % Neut # (Auto) 13.73 H (1.40-6.50) K/uL Hitchcock # (Auto) 1.81 H (0.11-0.59) K/uL PT 37.1 H (9.0-12.0) Seconds INR 3.9 H (0.9-1.1) POC ABG O2 Sat (90-95) % POC Sodium (135-144) mmol/L Sodium 133 L (136-145) mmol/L Potassium 3.2 L D (3.5-5.1) mmol/L Glucose 173 H (70-99(Fasting)) mg/dl POC Glucose (other) 171 H 179 H (70-99) mg/dl Hemoglobin A1c 7.7 H (4.5-5.6) % Calcium 8.2 L (8.6-10.3) mg/dl Phosphorus 2.4 L (2.5-4.9) mg/dl Albumin 3.2 L (3.4-5.0) gm/dl Procalcitonin (0-0.5) ng/ml Random Vancomycin 9.5 L (10-20) mcg/ml 04/07/24 04/07/24 04/07/24 Range/Units 06:03 07:22 08:09 WBC (4.8-10.8) K/ul RBC (4.70-6.10) M/uL Hgb (14.0-18.0) g/dl POC Hgb (14.0-18.0) g/dl Hct (42.0-52.0) % POC Hct (42-52) % Neut # (Auto) (1.40-6.50) K/uL Hitchcock # (Auto) (0.11-0.59) K/uL PT (9.0-12.0) Seconds INR (0.9-1.1) POC ABG O2 Sat (90-95) % POC Sodium (135-144) mmol/L Sodium (136-145) mmol/L Potassium (3.5-5.1) mmol/L Glucose (70-99(Fasting)) mg/dl POC Glucose (other) 179 H 193 H 197 H (70-99) mg/dl Hemoglobin A1c (4.5-5.6) % Calcium (8.6-10.3) mg/dl Phosphorus (2.5-4.9) mg/dl Albumin (3.4-5.0) gm/dl Procalcitonin (0-0.5) ng/ml Random Vancomycin (10-20) mcg/ml 04/07/24 04/07/24 04/07/24 Range/Units 09:10 09:36 09:57 WBC (4.8-10.8) K/ul RBC (4.70-6.10) M/uL Hgb (14.0-18.0) g/dl POC Hgb (14.0-18.0) g/dl Hct (42.0-52.0) % POC Hct (42-52) % Neut # (Auto) (1.40-6.50) K/uL Hitchcock # (Auto) (0.11-0.59) K/uL PT (9.0-12.0) Seconds INR (0.9-1.1) POC ABG O2 Sat (90-95) % POC Sodium (135-144) mmol/L Sodium (136-145) mmol/L Potassium (3.5-5.1) mmol/L Glucose (70-99(Fasting)) mg/dl POC Glucose (other) 190 H 170 H (70-99) mg/dl Hemoglobin A1c (4.5-5.6) % Calcium (8.6-10.3) mg/dl Phosphorus (2.5-4.9) mg/dl Albumin (3.4-5.0) gm/dl Procalcitonin 1.06 H (0-0.5) ng/ml Random Vancomycin (10-20) mcg/ml 04/07/24 04/07/24 04/07/24 Range/Units 10:12 11:07 11:59 WBC (4.8-10.8) K/ul RBC (4.70-6.10) M/uL Hgb (14.0-18.0) g/dl POC Hgb 10.5 L (14.0-18.0) g/dl Hct (42.0-52.0) % POC Hct 31 L (42-52) % Neut # (Auto) (1.40-6.50) K/uL Hitchcock # (Auto) (0.11-0.59) K/uL PT (9.0-12.0) Seconds INR (0.9-1.1) POC ABG O2 Sat 97.0 H (90-95) % POC Sodium 134 L (135-144) mmol/L Sodium (136-145) mmol/L Potassium (3.5-5.1) mmol/L Glucose (70-99(Fasting)) mg/dl POC Glucose (other) 180 H 157 H (70-99) mg/dl Hemoglobin A1c (4.5-5.6) % Calcium (8.6-10.3) mg/dl Phosphorus (2.5-4.9) mg/dl Albumin (3.4-5.0) gm/dl Procalcitonin (0-0.5) ng/ml Random Vancomycin (10-20) mcg/ml 04/07/24 Range/Units 13:17 WBC (4.8-10.8) K/ul RBC (4.70-6.10) M/uL Hgb (14.0-18.0) g/dl POC Hgb (14.0-18.0) g/dl Hct (42.0-52.0) % POC Hct (42-52) % Neut # (Auto) (1.40-6.50) K/uL Hitchcock # (Auto) (0.11-0.59) K/uL PT (9.0-12.0) Seconds INR (0.9-1.1) POC ABG O2 Sat (90-95) % POC Sodium (135-144) mmol/L Sodium (136-145) mmol/L Potassium (3.5-5.1) mmol/L Glucose (70-99(Fasting)) mg/dl POC Glucose (other) 168 H (70-99) mg/dl Hemoglobin A1c (4.5-5.6) % Calcium (8.6-10.3) mg/dl Phosphorus (2.5-4.9) mg/dl Albumin (3.4-5.0) gm/dl Procalcitonin (0-0.5) ng/ml Random Vancomycin (10-20) mcg/ml Diagnostic Findings Head CT 04/05/24 13:59 CT OF THE HEAD WITHOUT CONTRAST CLINICAL HISTORY: code blue COMPARISON STUDY: No previous studies for comparison. CT DOSE: 713.21 mGy.cm TECHNIQUE: Helical axial images of the head were obtained without IV contrast. Automated exposure control was utilized for the study. A dose lowering technique was utilized adhering to the principles of ALARA. FINDINGS: No acute intracranial hemorrhage, midline shift or mass effect is present. The ventricular system is unremarkable. The basal cisterns are patent. No extra-axial collections are present. There are no findings to suggest acute dural sinus thrombosis or acute territorial infarct. Several hypodensities within the bilateral cerebellar hemispheres measuring up to 1.6 cm favor old infarcts. There is a small amount of fluid within the bilateral masters cells. There are no calvarial fractures. There is minimal sinus mucosal thickening. IMPRESSION: 1. No acute intracranial findings. 2. 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 ACT 112: Negative or not required by law. Electronically signed by: Jose Garvey M.D. 04/05/2024 2:37 PM KUB X-Ray 04/05/24 19:52 Exam(s): XR KUB EXAM: XR Abdomen, 1 View CLINICAL HISTORY: Reason for exam: Pre MRI screening. TECHNIQUE: Frontal supine view of the abdomen/pelvis. COMPARISON: No relevant prior studies available. FINDINGS: Lower thorax: Mild degenerative changes throughout the lower thoracic and lumbar spine. Gastrointestinal tract: There is a temperature probe in the rectum. No dilated bowel loops identified. Bones/joints: Unremarkable. No acute fracture. Soft tissues: Unremarkable as visualized. No metallic objects identified. Vasculature: Mild calcification of the iliac arteries. Tubes, lines and devices: There is an NG tube extending into the stomach. The stomach is fully distended with gas but nondilated. There is a left groin vascular catheter. IMPRESSION: There is an NG tube extending into the stomach. The stomach is fully distended with gas but nondilated. Electronically signed by: Mahendra Nava MD 04/06/24 00:24 AM Orbit X-Ray 04/05/24 19:52 Exam(s): XR ORBITS EXAM: XR Orbits, 4 or More Views CLINICAL HISTORY: Reason for exam: Screening for foreign body for MRI. TECHNIQUE: Frontal, lateral and oblique views of the orbits. COMPARISON: No relevant prior studies available. FINDINGS: Bones/joints: Unremarkable. No acute fracture. Sinuses: Paranasal sinuses are unremarkable. Soft tissues: Unremarkable. No surgical clips or metallic foreign bodies in the brain or orbit. Tubes, lines and devices: Endotracheal and OG tubes passing through the oropharynx. Other findings: There is an upper denture in place. IMPRESSION: There is an upper denture in place. Electronically signed by: Mahendra Nava MD 04/06/24 00:36 AM Renal Ultrasound 04/06/24 11:00 RENAL ULTRASOUND HISTORY: Acute kidney injury [place] COMPARISON: 12/24/2023 FINDINGS: Right kidney: 9.5 cm. No hydronephrosis. Mild diffuse cortical thinning. Left kidney: 10.4 cm. No hydronephrosis. Previously noted 1 cm hypoechoic left renal lesion is not seen on today's study. Mild diffuse cortical thinning. Echogenic nonshadowing foci of the midpole left kidney suggests renal sinus fat. Tiny nonobstructing calculi considered less likely. Bladder: Decompressed with Aguirre catheter. IMPRESSION: 1. No hydronephrosis. 2. Decompressed bladder with Aguirre catheter. 3. Previously noted 1 cm left renal lesion is not visualized on today's study. ACT 112: Negative or not required by law. Electronically signed by: Dario Hung M.D. 04/06/2024 12:01 PM Chest X-Ray 04/07/24 08:14 XR chest 1V portable HISTORY: 78 years-old Male fevers acute fever with respiratory failure COMPARISON: 04/06/2024 TECHNIQUE: AP view of the chest FINDINGS: Cardiac silhouette is enlarged. Endotracheal tube overlies the midline, 5.4 cm superior to the midline. The heart is enlarged. Pulmonary vascular congestion. No pneumothorax, large pleural effusion or lobar airspace consolidation. Bones appear grossly intact. IMPRESSION: 1. Endotracheal tube overlies the midline, 5.4 cm superior to the indira. 2. Cardiomegaly with pulmonary vascular congestion. ACT 112: Negative or not required by law. The above report was generated using voice recognition software. It may contain grammatical, syntax or spelling errors. Electronically signed by: Dario Hung M.D. 04/07/2024 9:08 AM Brain MRI 04/07/24 08:24 MR brain wo con HISTORY: 78 years-old Male anoxic brain injury COMPARISON: 04/06/2024 TECHNIQUE: Multiplanar multisequence MRI of the brain was obtained without IV contrast FINDINGS: No restricted diffusion. Midline structures appear unremarkable. There is no acute intracranial hemorrhage, midline shift, abnormal extra-axial collection, hydrocephalus or intra-axial mass. Chronic cerebellar lacunar infarcts. The c erebral venous sinuses and major arterial flow voids appear patent. Prior bilateral injury repair. On the monitor because of thickening of the ethmoid air cells. Small focus of polypoid mucosal thickening within the dependent right maxillary sinus. Layering nasopharyngeal secretions. Small left with moderate right mastoid effusions. Involutional changes with mild T2/FLAIR hyperintense foci throughout the white matter suggestive of probable chronic microvascular ischemic disease. IMPRESSION: 1. No acute intracranial abnormality. No acute or subacute infarct. 2. Chronic cerebellar lacunar infarcts. 3. Moderate sized right mastoid effusion. 4. Layering secretions within the airway, likely secondary to intubation. ACT 112: Negative or not required by law. The above report was generated using voice recognition software. It may contain grammatical, syntax or spelling errors. Electronically signed by: Dario Hung M.D. 04/07/2024 2:44 PM Medications Administered Current Inpatient Medications Dextrose (Dextrose 50% 50 Ml Syringe) 25 - 50 ml IV UD PRN; Protocol PRN Reason: Hypoglycemia Protocol Stop: 05/05/24 17:29 Enteral Nutritional Formula (Peptamen 1.5 Yon 1,000 Ml Bag) 1,000 ml OG UD RUIZ; Protocol Stop: 05/06/24 11:14 Last Admin: 04/06/24 16:17 Dose: 1,000 ml Fentanyl Citrate (Fentanyl Bolus From Bag) 50 mcg IV Q60M PRN PRN Reason: Pain or Agitation Stop: 04/19/24 18:23 Last Admin: 04/05/24 20:30 Dose: 50 mcg Glucagon (Glucagon For Inj 1 Mg Vial) 1 mg SQ UD PRN; Protocol PRN Reason: Hypoglycemia Protocol Stop: 05/05/24 17:29 Glucose (Glucose 40% Gel 15 Gm Tube) 15 - 30 gm PO UD PRN; Protocol PRN Reason: Hypoglycemia Protocol Stop: 05/05/24 17:29 Glucose (Glucose 10 Tab/Tube) 4 - 8 tab PO UD PRN; Protocol PRN Reason: Hypoglycemia Protocol Stop: 05/05/24 17:29 Fentanyl Citrate (Fentanyl Citrate) 2,500 mcg in 250 mls @ 0 mls/hr IV .Q0M RUIZ; Protocol Stop: 04/19/24 18:29 Last Titration: 04/07/24 07:32 Dose: 0 mcg/hr, 0 mls/hr Midazolam HCl (Versed) 125 mg in 250 mls @ 0 mls/hr IV .Q0M RUIZ; Protocol Stop: 05/05/24 19:44 Last Titration: 04/07/24 07:32 Dose: 0 mg/hr, 0 mls/hr Acetaminophen (Ofirmev) 1,000 mg in 100 mls @ 400 mls/hr IV Q8H PRN PRN Reason: Fever Stop: 04/08/24 20:17 Last Infusion: 04/07/24 12:18 Dose: Infused Norepinephrine Bitartrate (Levophed/D5w) 4 mg in 250 mls @ 24.36 mls/hr IV .[id number] RUIZ; Protocol Stop: 05/05/24 21:29 Last Admin: 04/07/24 06:17 Dose: 0.07 mcg/kg/min, 24.4 mls/hr Ceftriaxone Sodium (Rocephin) 2,000 mg in 50 mls @ 100 mls/hr IV Q24H [facility] Stop: 04/08/24 08:29 Last Infusion: 04/07/24 12:02 Dose: Infused Insulin Human Regular 250 (units/ Sodium Chloride) 250 mls @ 2.3 mls/hr IV .Q24H RUIZ; Protocol Stop: 05/06/24 08:59 Last Admin: 04/07/24 10:04 Dose: 2.3 unit/hr, 2.3 mls/hr Amiodarone HCl/Dextrose (Nexterone / D5w) 360 mg in 200 mls @ 16.667 mls/hr IV .Q12H [facility] Stop: 05/06/24 10:14 Last Admin: 04/07/24 10:06 Dose: 0.5 mg/min, 16.7 mls/hr Famotidine (Pepcid 20mg Iv Push) 20 mg in 5 mls @ 2.5 mls/min IV Q24H [facility] [facility] Stop: 05/06/24 08:59 Last Admin: 04/07/24 10:04 Dose: 2.5 mls/min Insulin Aspart (Insulin Aspart Per Unit Charge) 0 units SC Q6 [facility] Stop: 05/06/24 11:59 Last Admin: 04/07/24 12:36 Dose: 3 units Midazolam HCl (Midazolam Bolus From Bag) 2 mg IV Q60M PRN PRN Reason: Sedation Stop: 05/05/24 19:35 Last Admin: 04/07/24 02:00 Dose: 2 mg Miscellaneous (Icu Electrolyte Replacement Protocol) 1 each N/A BID@,18 RUIZ; Protocol Stop: 04/12/24 17:59 Last Admin: 04/07/24 05:49 Dose: 1 each Miscellaneous (Carbohydrates For Hypoglycemia ) 15 - 30 gm PO UD PRN PRN Reason: Hypoglycemia Protocol Stop: 05/05/24 17:29 Miscellaneous Information (Pharmacy Glycemic Mgmt Consult) 1 each N/A UD PRN; Protocol PRN Reason: Consult Stop: 05/05/24 20:32 Sterile Water (Tube Feeding Water Flush) 75 ml OG Q4H [facility] Stop: 05/07/24 10:26 Last Admin: 04/07/24 12:37 Dose: 75 ml PG Care Time/CCT Total # of Minutes Spent Total Time Spent with Patient: Total time spent is greater than 50% in coordination of care (as documented) at patient's floor/unit and/or counseling patient: [place] [address] IN/OBS CONSULT LVL 2,35M Patient Type New History Problem Focused Exam Problem Focused Medical Decision Making Low Complexity Diagnoses Advance care planning Z71.89 Palliative care by specialist Z51.5
--- NOTE | 2024-04-07 16:44 | Communication Note ---
Date of Service: April 07, 2024 ethics consult note. Chart reviewed, case discussed with opal polisher and case management. Patient without spouse, no known children, estranged siblings that are unable to be located in the any way, no other first-degree family members or other family members at all for that matter. He does have a friend who it sounds like he is close with who obviously has no legal decision making authority for the patient's behalf but relates that he does not think the patient would want to live this way, nor does his PCP. Autonomypatient unable to make his own decisions, no legal decision maker appointed or able to be located at all beneficencecurrent care seems to be unlikely to affect much meaningful improvement past this point nonmaleficencecurrent care is quite invasive and intensive justicepatient unable to make decisions on his own behalf, but people who know him well even though they are not legal decision makers have expressed that he would not want to be in this state conclusion: From an Ethics standpoint it appears quite reasonable for the patient's physicians to make decisions on his behalf based on the best of their medical decision making, including withdrawal of care.
[2024-04-07 17:23] LABS: BUN Creatinine Ratio 19.3 (10-20); Calcium 7.9 mg/dl (8.6-10.3); Creatinine Clr Calc Pharmacy 68.7 ml/min; Magnesium 1.9 mg/dl (1.7-2.4); Potassium 3.7 mmol/L (3.5-5.1)
[2024-04-07] MEDS: SODIUM CHLORIDE 0.9% 250 ML IV ONE (17:31)
--- NOTE | 2024-04-07 19:42 | Hospitalist Progress Note ---
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 MRI brain x 2 without acute stroke or findings suggestive of anoxic brain injury but concern for latter is very high Left heart cath showed unchanged severe three-vessel CAD with preserved cardiac output with minimally elevated right and left filling pressures on right heart cath No targets for PCI Could be CABG candidate if patient survives the hospitalization but chances for such are very very low EEG negative for seizure focus During sedation holidays no significant purposeful movements seen to date Remains on levophed for BP support and amiodarone drip due to need for defibrillation pre-hospital Prognosis is guarded Appreciate neurology, critical care assistance (2) Metabolic acidosis: Plan: 2nd to lactic acidosis Had improved earlier in the stay (3) Ischemic cardiomyopathy: Plan: Severe multivessel CAD s/p thromboendarterectomy 2002 - cardiac cath 2013 showed proximal LAD 50 to 60% with proximal to mid LAD 100%, D1 70%, D3 occluded, large septal instrument calibrator with 80% proximal stenosis, proximal circumflex with sequential 98% stenotic lesions, AV groove circumflex 100%, proximal RCA 99% - Echo 2022 showing moderately dilated left ventricle with severely reduced systolic function, EF 25 to 30%, akinesis of mid and inferior lateral wall, global hypokinesis, mild LVH, mild mitral regurg Repeat Left heart cath hospital day #1 relatively unchanged Unfortunately, however, EF on echo is worse - now 15-20% Continue levophed Continue amiodarone Typically on Coumadin, metoprolol, atorvastatin - all on hold (4) HFrEF (heart failure with reduced ejection fraction): Plan: EF 15-20% on echo this admission LV function worse than 2022 With out of hospital cardiac arrest due to arrhythmia/presumed VT or Vfib requiring defibrillation x 3 (5) Hypertension: Plan: all home BP meds on hold (6) 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: Plan: a1c 7.7% Remains on insulin infusion ICU glycemic protocol in effect (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 inguinal hernia repair 01/2024 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 had yet to go to tertiary care center to discuss treatment options but based on documentation it was uncertain if patient wanted any Rx for such (8) Fever: Plan: blood/urine cx's negative [employer] resp panel negative consider repeat COVID test tomorrow if still febrile remains on empiric rocephin for now (9) Thromboembolism of lower extremity artery: Plan: h/o arterial clot in the distant past also with h/o PE thus, on chronic coumadin therapy coumadin on hold - INR >3 today (10) Pulmonary embolism: Plan: as noted above (11) Acute kidney injury: Plan: Peak Cr 1.6 Now 1.2 likely 2nd ATN in the setting of his cardiac arrest Supportive care Serial labs (12) Hypothyroidism: Plan: TSH wnl can resume synthroid via enteric tube (13) Metabolic encephalopathy: Plan: heavy concern for anoxic brain injury in the setting of his out of hospital cardiac arrest down time due to the cardiac arrest is uncertain cont sedation holidays to assess neuro exams MRI brain x 2 and EEG findings noted Plan VTE ppx: defer selection to ICU attending By report patient is estranged from his 2 living siblings Only a friend - Amanuel Webb - is listed in the chart as a blocker and cutter contact lens (he has been visiting) social work scoured the following to find any other contacts - * [employer] medical record * [employer] * [id number] I personally looked through [employer] for contacts - only 1 I could find was his father [facility] Nurse Brian found the following in the [employer] record -- Russell Lujan ([phone]) I called this number about 1830 this evening - the phone just rings & rings, no answer, no voicemail old notes state he was then in his 20s has no children made Dr Foster aware of the above Admission and Anticipated Discharge Date Admission Date: April 05, 2024 Subjective events of last 24 hours noted care d/w Dr Foster from ICU patient continues to show no evidence of cortical function however there is intact brainstem function does not respond to pain, name being called, sternal rub attempts to wean pressors - although low-dose - have not been successful Review of Systems Review of Systems: Unobtainable due to endotracheal tube and Unobtainable due to reduced consciousness Physical Exam Physical Exam: gen - intubated, unresponsive eyes - pupils 1-2mm and reactive b/l neck - no JVD mouth - intubated, enteric tube present heart - RRR, s1 s2, no murmur lungs - CTA b/l abd - soft NT ND BS+ ext - pulses 1+ b/l feet, no edema neuro - equivacol great toe on right; + Babinski on left; patellar reflexes 2+ b/l; no purposeful movements to pain, voice, touch Results & Data Results & Data Vital Signs (Past 12 Hours) Vital Signs Temp Pulse Resp BP Pulse Ox FiO2 04/07/24 18:27 37.4 C 59 L 20 121/65 99 04/07/24 18:09 37.4 C 66 20 129/61 99 04/07/24 17:33 37.4 C 63 20 110/62 98 04/07/24 17:30 110/62 04/07/24 17:06 37.4 C 64 20 139/67 98 04/07/24 16:27 37.4 C 61 20 117/65 98 04/07/24 16:03 37.4 C 62 20 125/62 98 04/07/24 16:00 30 04/07/24 16:00 62 04/07/24 15:27 37.6 C H 64 20 124/64 98 04/07/24 15:02 71 20 99 30 04/07/24 15:00 145/71 H 04/07/24 15:00 61 04/07/24 14:54 37.9 C H 81 19 04/07/24 13:36 38.1 C H 59 L 20 99 04/07/24 12:54 38.2 C H 63 20 121/58 L 98 04/07/24 12:36 38.2 C H 69 20 121/59 L 97 04/07/24 12:00 141/72 H 04/07/24 12:00 30 04/07/24 11:30 37.8 C H 77 23 138/77 97 04/07/24 10:54 37.8 C H 71 16 123/63 98 04/07/24 10:24 37.8 C H 71 16 125/65 99 04/07/24 10:15 64 19 99 30 04/07/24 10:00 121/61 04/07/24 09:57 37.8 C H 71 17 97 04/07/24 09:36 37.7 C H 77 18 98 04/07/24 08:57 37.4 C 79 19 148/69 H 100 04/07/24 08:57 77 19 99 30 04/07/24 08:30 37.4 C 66 17 133/69 90 04/07/24 08:09 37.4 C 66 18 123/66 100 04/07/24 08:00 60 04/07/24 07:58 59 L 20 98 26 04/07/24 07:51 37.4 C 60 20 98 Laboratory Results Laboratory Results - last 24 hr 04/06/24 04/07/24 04/07/24 23:24 00:40 01:02 WBC RBC Hgb POC Hgb Hct POC Hct MCV MCH MCHC RDW Std Deviation RDW Coeff of Mingo Plt Count MPV Immature Gran % (Auto) Neut % (Auto) Lymph % (Auto) Rankin % (Auto) Eos % (Auto) Baso % (Auto) Neut # (Auto) Lymph # (Auto) Rankin # (Auto) Eos # (Auto) Baso # (Auto) Immature Gran # (Auto) PT INR Specimen Type POC pH POC pCO2 POC pO2 POC HCO3 POC Total CO2 POC Base Excess O2 Sat Pulse Oximetry ABG pH (Temp Correct) ABG pCO2 (Temp Corrct POC ABG pO2 at Pt Temp POC ABG O2 Sat Chang Test O2 Delivery Device Vent Mode POC FiO2 End Tidal CO2 POC Sodium Sodium POC Potassium Potassium Chloride Carbon Dioxide Anion Gap BUN Creatinine Est Cr Clr Drug Dosing eGFR BUN/Creatinine Ratio Glucose POC Glucose (other) 105 H 87 112 H Estimat Average Glucose Hemoglobin A1c Calcium Phosphorus Magnesium Total Bilirubin AST ALT Alkaline Phosphatase Total Protein Albumin Globulin Albumin/Globulin Ratio Procalcitonin Random Vancomycin 04/07/24 04/07/24 04/07/24 02:05 03:09 04:08 WBC RBC Hgb POC Hgb Hct POC Hct MCV MCH MCHC RDW Std Deviation RDW Coeff of Mingo Plt Count MPV Immature Gran % (Auto) Neut % (Auto) Lymph % (Auto) Rankin % (Auto) Eos % (Auto) Baso % (Auto) Neut # (Auto) Lymph # (Auto) Rankin # (Auto) Eos # (Auto) Baso # (Auto) Immature Gran # (Auto) PT INR Specimen Type POC pH POC pCO2 POC pO2 POC HCO3 POC Total CO2 POC Base Excess O2 Sat Pulse Oximetry ABG pH (Temp Correct) ABG pCO2 (Temp Corrct POC ABG pO2 at Pt Temp POC ABG O2 Sat Chang Test O2 Delivery Device Vent Mode POC FiO2 End Tidal CO2 POC Sodium Sodium POC Potassium Potassium Chloride Carbon Dioxide Anion Gap BUN Creatinine Est Cr Clr Drug Dosing eGFR BUN/Creatinine Ratio Glucose POC Glucose (other) 137 H 158 H 171 H Estimat Average Glucose Hemoglobin A1c Calcium Phosphorus Magnesium Total Bilirubin AST ALT Alkaline Phosphatase Total Protein Albumin Globulin Albumin/Globulin Ratio Procalcitonin Random Vancomycin 04/07/24 04/07/24 04/07/24 04:22 05:04 06:03 WBC 17.30 H RBC 3.83 L Hgb 11.7 L POC Hgb Hct 34.2 L POC Hct MCV 89.3 MCH 30.5 MCHC 34.2 RDW Std Deviation 40.9 RDW Coeff of Mingo 12.5 Plt Count 229 MPV 10.6 Immature Gran % (Auto) 0.3 Neut % (Auto) 79.4 Lymph % (Auto) 9.2 Rankin % (Auto) 10.5 Eos % (Auto) 0.4 Baso % (Auto) 0.2 Neut # (Auto) 13.73 H Lymph # (Auto) 1.60 Rankin # (Auto) 1.81 H Eos # (Auto) 0.07 Baso # (Auto) 0.03 Immature Gran # (Auto) 0.06 PT 37.1 H INR 3.9 H Specimen Type POC pH POC pCO2 POC pO2 POC HCO3 POC Total CO2 POC Base Excess O2 Sat Pulse Oximetry ABG pH (Temp Correct) ABG pCO2 (Temp Corrct POC ABG pO2 at Pt Temp POC ABG O2 Sat Chang Test O2 Delivery Device Vent Mode POC FiO2 End Tidal CO2 POC Sodium Sodium 133 L POC Potassium Potassium 3.2 L D Chloride 101 Carbon Dioxide 21 Anion Gap 11 BUN 23 Creatinine 1.27 D Est Cr Clr Drug Dosing 58.9 eGFR 58.55 BUN/Creatinine Ratio 18.1 Glucose 173 H POC Glucose (other) 179 H 179 H Estimat Average Glucose 174 Hemoglobin A1c 7.7 H Calcium 8.2 L Phosphorus 2.4 L Magnesium 2.0 Total Bilirubin 0.7 AST 33 ALT 30 Alkaline Phosphatase 58 Total Protein 6.2 Albumin 3.2 L Globulin 3.0 Albumin/Globulin Ratio 1.1 Procalcitonin Random Vancomycin 9.5 L 04/07/24 04/07/24 04/07/24 07:22 08:09 09:10 WBC RBC Hgb POC Hgb Hct POC Hct MCV MCH MCHC RDW Std Deviation RDW Coeff of Mingo Plt Count MPV Immature Gran % (Auto) Neut % (Auto) Lymph % (Auto) Rankin % (Auto) Eos % (Auto) Baso % (Auto) Neut # (Auto) Lymph # (Auto) Rankin # (Auto) Eos # (Auto) Baso # (Auto) Immature Gran # (Auto) PT INR Specimen Type POC pH POC pCO2 POC pO2 POC HCO3 POC Total CO2 POC Base Excess O2 Sat Pulse Oximetry ABG pH (Temp Correct) ABG pCO2 (Temp Corrct POC ABG pO2 at Pt Temp POC ABG O2 Sat Chang Test O2 Delivery Device Vent Mode POC FiO2 End Tidal CO2 POC Sodium Sodium POC Potassium Potassium Chloride Carbon Dioxide Anion Gap BUN Creatinine Est Cr Clr Drug Dosing eGFR BUN/Creatinine Ratio Glucose POC Glucose (other) 193 H 197 H 190 H Estimat Average Glucose Hemoglobin A1c Calcium Phosphorus Magnesium Total Bilirubin AST ALT Alkaline Phosphatase Total Protein Albumin Globulin Albumin/Globulin Ratio Procalcitonin Random Vancomycin 04/07/24 04/07/24 04/07/24 09:36 09:57 10:12 WBC RBC Hgb POC Hgb 10.5 L Hct POC Hct 31 L MCV MCH MCHC RDW Std Deviation RDW Coeff of Mingo Plt Count MPV Immature Gran % (Auto) Neut % (Auto) Lymph % (Auto) Rankin % (Auto) Eos % (Auto) Baso % (Auto) Neut # (Auto) Lymph # (Auto) Rankin # (Auto) Eos # (Auto) Baso # (Auto) Immature Gran # (Auto) PT INR Specimen Type Arterial POC pH 7.42 POC pCO2 37 POC pO2 85 POC HCO3 24 POC Total CO2 25 POC Base Excess -1.0 O2 Sat Pulse Oximetry 99 ABG pH (Temp Correct) 7.403 ABG pCO2 (Temp Corrct 38 POC ABG pO2 at Pt Temp 89 POC ABG O2 Sat 97.0 H Chang Test NA O2 Delivery Device Ventilator Vent Mode CPAP POC FiO2 30 End Tidal CO2 33 POC Sodium 134 L Sodium POC Potassium 3.3 Potassium Chloride Carbon Dioxide Anion Gap BUN Creatinine Est Cr Clr Drug Dosing eGFR BUN/Creatinine Ratio Glucose POC Glucose (other) 170 H Estimat Average Glucose Hemoglobin A1c Calcium Phosphorus Magnesium Total Bilirubin AST ALT Alkaline Phosphatase Total Protein Albumin Globulin Albumin/Globulin Ratio Procalcitonin 1.06 H Random Vancomycin 04/07/24 04/07/24 04/07/24 11:07 11:59 13:17 WBC RBC Hgb POC Hgb Hct POC Hct MCV MCH MCHC RDW Std Deviation RDW Coeff of Mingo Plt Count MPV Immature Gran % (Auto) Neut % (Auto) Lymph % (Auto) Rankin % (Auto) Eos % (Auto) Baso % (Auto) Neut # (Auto) Lymph # (Auto) Rankin # (Auto) Eos # (Auto) Baso # (Auto) Immature Gran # (Auto) PT INR Specimen Type POC pH POC pCO2 POC pO2 POC HCO3 POC Total CO2 POC Base Excess O2 Sat Pulse Oximetry ABG pH (Temp Correct) ABG pCO2 (Temp Corrct POC ABG pO2 at Pt Temp POC ABG O2 Sat Chang Test O2 Delivery Device Vent Mode POC FiO2 End Tidal CO2 POC Sodium Sodium POC Potassium Potassium Chloride Carbon Dioxide Anion Gap BUN Creatinine Est Cr Clr Drug Dosing eGFR BUN/Creatinine Ratio Glucose POC Glucose (other) 180 H 157 H 168 H Estimat Average Glucose Hemoglobin A1c Calcium Phosphorus Magnesium Total Bilirubin AST ALT Alkaline Phosphatase Total Protein Albumin Globulin Albumin/Globulin Ratio Procalcitonin Random Vancomycin 04/07/24 04/07/24 04/07/24 15:21 16:53 17:30 WBC RBC Hgb POC Hgb Hct POC Hct MCV MCH MCHC RDW Std Deviation RDW Coeff of Mingo Plt Count MPV Immature Gran % (Auto) Neut % (Auto) Lymph % (Auto) Rankin % (Auto) Eos % (Auto) Baso % (Auto) Neut # (Auto) Lymph # (Auto) Rankin # (Auto) Eos # (Auto) Baso # (Auto) Immature Gran # (Auto) PT INR Specimen Type POC pH POC pCO2 POC pO2 POC HCO3 POC Total CO2 POC Base Excess O2 Sat Pulse Oximetry ABG pH (Temp Correct) ABG pCO2 (Temp Corrct POC ABG pO2 at Pt Temp POC ABG O2 Sat Chang Test O2 Delivery Device Vent Mode POC FiO2 End Tidal CO2 POC Sodium Sodium 132 L POC Potassium Potassium 3.7 Chloride 103 Carbon Dioxide 22 Anion Gap 7 BUN 21 Creatinine 1.09 Est Cr Clr Drug Dosing 68.7 eGFR 70.34 BUN/Creatinine Ratio 19.3 Glucose 219 H POC Glucose (other) 195 H 215 H Estimat Average Glucose Hemoglobin A1c Calcium 7.9 L Phosphorus Magnesium 1.9 Total Bilirubin AST ALT Alkaline Phosphatase Total Protein Albumin Globulin Albumin/Globulin Ratio Procalcitonin Random Vancomycin 04/07/24 04/07/24 18:10 19:13 WBC RBC Hgb POC Hgb Hct POC Hct MCV MCH MCHC RDW Std Deviation RDW Coeff of Mingo Plt Count MPV Immature Gran % (Auto) Neut % (Auto) Lymph % (Auto) Rankin % (Auto) Eos % (Auto) Baso % (Auto) Neut # (Auto) Lymph # (Auto) Rankin # (Auto) Eos # (Auto) Baso # (Auto) Immature Gran # (Auto) PT INR Specimen Type POC pH POC pCO2 POC pO2 POC HCO3 POC Total CO2 POC Base Excess O2 Sat Pulse Oximetry ABG pH (Temp Correct) ABG pCO2 (Temp Corrct POC ABG pO2 at Pt Temp POC ABG O2 Sat Chang Test O2 Delivery Device Vent Mode POC FiO2 End Tidal CO2 POC Sodium Sodium POC Potassium Potassium Chloride Carbon Dioxide Anion Gap BUN Creatinine Est Cr Clr Drug Dosing eGFR BUN/Creatinine Ratio Glucose POC Glucose (other) 221 H 201 H Estimat Average Glucose Hemoglobin A1c Calcium Phosphorus Magnesium Total Bilirubin AST ALT Alkaline Phosphatase Total Protein Albumin Globulin Albumin/Globulin Ratio Procalcitonin Random Vancomycin PG Care Time/CCT Total # of Minutes Spent Total Time Spent with Patient: Total time spent is greater than 50% in coordination of care (as documented) at patient's floor/unit and/or counseling patient: Coding Level of Care Code 96848 SUB INP/OBS CARE 125MIN Diagnoses Cardiac arrest I46.9 Metabolic acidosis E87.20 Ischemic cardiomyopathy I25.5 HFrEF (heart failure with reduced ejection fraction) I50.20 Hypertension I10 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
--- NOTE | 2024-04-07 20:15 | Communication Note ---
Date of Service: April 07, 2024 Attempted to contact what we believed to be the patient's brother, Suleman Tsai, who may be a resident of [place]. Publicly listed numbers [phone] and [phone] were attempted this morning with no answer, unsure if these are still active numbers. I also called [facility] who were unable to obtain a contact with the information available. We will continue to attempt and contact next of kin. Coding Level of Care Code None
--- NOTE | 2024-04-07 21:36 | Communication Note ---
Date of Service: April 07, 2024 I was able to contact Suleman Tsai, the patient's brother, who is a retired manager financial that lives in [facility]. (Phone number [phone]). He was updated on his brother's (Charly Tsai) current condition , and is aware that he is currently on a ventilator from an anoxic injury sustained from cardiac arrest. Unfortunately the patient's brother cannot travel due to health conditions, and did want to establish contact with the patient's current contact and friend, Amanuel Delongleonel, who has been at the patient's bedside. Unfortunately, Mr. Webb did not express interest in establishing contact with the brother. I spoke with the patient's brother Suleman Tsai again, and for now he would like the patient's friend Amanuel hall as a contact. Contacts currently updated as Suleman Tsai as the primary contact and power of alteration tailor apprentice. CODE STATUS was also discussed regarding aggressive measures such as CPR and defibr illation in the event he were to suffer cardiac arrest, and the patient's brother and [id number] who is also on the call did defer to change CODE STATUS to DNR. Patient's family expressed wishes to be contacted by shoe caser in order to make further arrangements. At this time it sounds like they will likely opt for transition to comfort measures in the near future. We will continue supportive medical management in the ICU at this time. Coding Level of Care Code 48383 CRITICAL CARE 1ST 30-74M Time Spent (min) 55
[2024-04-08 05:13] LABS: iSTAT Art Bld Gas pCO2 Correct 28 mmHg (35-46); iSTAT Art Bld Gas pH Corrected 7.502 (7.35-7.45); iSTAT Arterial Blood Gas HCO3 22 meg/L (19-24); iSTAT Arterial Blood Gas pCO2 29 mmHg (35-46); iSTAT Arterial Blood Gas pO2 117 mmHg (80-95); iSTAT Arterial Blood Gas pO2 C 116; iSTAT Carbon Dioxide 23 mmol/L (24-31); iSTAT FiO2 38 %; iSTAT Hematocrit 32 % (42-52); iSTAT Hemoglobin 10.9 g/dl (14.0-18.0); iSTAT Potassium 3.3 mmol/L (3.3-5.0); iSTAT Sample Type Arterial; iSTAT Site Art Line; iSTAT Sodium 134 mmol/L (135-144); iSTAT SpO2 100
[2024-04-08 05:16] LABS: BUN Creatinine Ratio 18.1 (10-20); Calcium 8.1 mg/dl (8.6-10.3); Creatinine Clr Calc Pharmacy 80.5 ml/min; Potassium 3.4 mmol/L (3.5-5.1)
[2024-04-08 05:36] LABS: Prothrombin Time 20.7 Seconds (9.0-12.0)
[2024-04-08 06:27] LABS: Basophils # (auto) 0.04 K/uL (0.00-0.20); Basophils % (auto) 0.4 %; Hematocrit (blood only) 31.7 % (42.0-52.0); Immature Granulocytes # (auto) 0.05 K/uL (0.01-0.20); Immature Granulocytes % (auto) 0.5 %; Lymphocytes # (auto) 1.38 K/uL (1.20-3.40); Lymphocytes % (auto) 13.2 %; Mean Corpuscular Hemoglobin 30.7 pg (25.0-34.0); Mean Corpuscular Hgb Conc 34.7 g/dL (32.0-36.0); Mean Corpuscular Volume 88.5 fL (80.0-100.0); Mean Platelet Volume 10.4 fL (9.4-12.4); Monocytes # (auto) 1.09 K/uL (0.11-0.59); Monocytes % (auto) 10.4 %; Neutrophils # (auto) 7.79 K/uL (1.40-6.50); Neutrophils % (auto) 74.5 %; Platelet Count 186 K/uL (130-400); RDW Coefficient of Variation 12.4 % (11.5-14.5); RDW Standard Deviation 40.3 fL (36.4-46.3); Red Blood Count 3.58 M/uL (4.70-6.10); White Blood Count 10.45 K/ul (4.8-10.8)
--- NOTE | 2024-04-08 08:15 | XRay Report ---
XR chest 1V portable HISTORY: 78 years-old Male Resp failure COMPARISON: 04/07/2024 TECHNIQUE: AP view the chest FINDINGS: Endotracheal tube overlies the midline, 5 cm superior to the indira. Enteric tube courses into the st omach with distal tip outside the [id number]. Cardiac silhouette is enlarged. No pneumothorax, ple ural effusion or overt pulmonary edema. There is a small subtle ill-defined right midlung opacity. IMPRESSION: 1. Endotracheal and enteric tube placement as above. 2. No pneumothorax. 3. Subtle ill-defined right midlung opacity may be secondary to summation density versus airspace dis ease. ACT 112: Negative or not required by law. The above report was generated using voice recognition software. It may contain grammatical, syntax o r spelling errors. Electronically signed by: Dario Hung M.D. 04/08/2024 8:13 AM
[2024-04-08] MEDS: POTASSIUM CHLORIDE 20 MEQ/15 ML UDC NG SCH (09:07)
[2024-04-08] MEDS: POT PHOSPHATE MONOBASIC W/ SOD TAB NG SCH (09:07)
--- NOTE | 2024-04-08 09:43 | Hospitalist Progress Note ---
Date of Service April 08, 2024 Assessment & Plan (1) Cardiac arrest: Plan: Patient with [id number] cardiac arrest with CPR, shocked with AED x 3 shocks, intubation in the field, and 150 mg amiodarone followed by ROSC Amount of down-time in the field is uncertain Arrived to [facility] as code heart alert Went straight to pathology lab technician, lactic acidosis on presentation from decreased perfusion Left heart cath showed unchanged severe three-vessel CAD minimally elevated right and left filling pressures on right heart cath No targets for PCI Chronic HFrEF with further reduction of EF post arrest to 15-20% Could be CABG candidate if patient survives the hospitalization but chances for such are very very low Head CT negative for acute changes 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 MRI brain x 2 without acute stroke or findings suggestive of anoxic brain injury but concern for latter is very high EEG negative for seizure focus During sedation holidays no significant purposeful movements seen to date Continue levophed Continue amiodarone Typically on Coumadin, metoprolol, atorvastatin - all on hold , coumadin was used for history of arterial clot with thrombectomy in past and a PE (2) 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: Plan: a1c 7.7% Remains on insulin infusion ICU glycemic protocol in effect (3) Fever: Plan: blood/urine cx's negative BioFire resp panel negative initial lactic acidosis /metabolic acidosis suspected from decreased tissue perfusion remains on empiric rocephin for now (4) Acute kidney injury: Plan: improving likely 2nd ATN in the setting of his cardiac arrest (5) Liposarcoma of peritoneum: Plan: s/p right inguinal hernia repair 01/2024 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 had yet to go to tertiary care center to discuss treatment options but based on documentation it was uncertain if patient wanted any Rx for such Plan Hypothyroidism stable By report patient is estranged from his 2 living siblings Only a friend - Amanuel Webb - is listed in the chart as a call or contact centre operator (he has been visiting), distant family is not available to come to hospital old notes state he was then in his 20s has no children Admission and Anticipated Discharge Date Admission Date: April 05, 2024 Subjective Unfortunately, patient remains unresponsive to commands. Sedation has been weaned off. No meaningful or purposeful movements. Brainstem reflexes intact including corneal, gag reflex and spontaneous respirations. Hemodynamically he remained stable. Compassionate extubation and comfort measures Physical Exam Physical Exam: not responsive to reflex cardiac regular Results & Data Results & Data Vital Signs (Past 12 Hours) Vital Signs Temp Pulse Resp BP Pulse Ox O2 Del Method FiO2 04/08/24 08:26 Mechanical Vent 30 04/08/24 08:00 30 04/08/24 07:59 57 L 04/08/24 07:35 58 L 16 100 30 04/08/24 07:16 58 L 04/08/24 06:00 122/65 04/08/24 06:00 98.4 F 58 L 16 100 04/08/24 06:00 122/65 04/08/24 05:33 98.2 F 58 L 16 100 04/08/24 05:30 123/68 04/08/24 05:21 98.2 F 58 L 16 100 04/08/24 05:06 98.2 F 58 L 16 99 04/08/24 05:06 16 30 04/08/24 04:30 98.1 F 57 L 20 99 04/08/24 04:30 133/70 04/08/24 04:30 133/70 04/08/24 04:00 136/68 04/08/24 04:00 98.2 F 57 L 20 99 04/08/24 04:00 30 04/08/24 03:45 98.4 F 56 L 20 99 04/08/24 03:30 132/66 04/08/24 03:30 132/66 04/08/24 03:30 132/66 04/08/24 03:15 98.6 F 54 L 20 99 04/08/24 03:13 55 L 20 100 30 04/08/24 03:00 139/74 04/08/24 03:00 139/74 04/08/24 02:48 98.6 F 56 L 20 99 04/08/24 02:30 134/70 04/08/24 02:30 98.6 F 56 L 20 100 04/08/24 02:06 98.8 F 56 L 20 99 04/08/24 01:33 99.1 F 55 L 20 99 04/08/24 01:30 118/65 04/08/24 01:30 118/65 04/08/24 01:21 99.0 F 61 20 100 04/08/24 01:09 99.3 F 55 L 20 99 04/08/24 00:33 99.5 F 57 L 20 100 04/08/24 00:30 124/67 04/08/24 00:30 124/67 04/08/24 00:21 99.7 F H 56 L 20 99 04/08/24 00:06 99.9 F H 57 L 20 99 04/08/24 00:00 113/62 04/08/24 00:00 113/62 04/08/24 00:00 113/62 04/08/24 00:00 58 L 04/08/24 00:00 30 04/07/24 23:57 99.9 F H 57 L 20 99 04/07/24 23:30 100.2 F H 58 L 20 99 04/07/24 23:30 115/57 L 04/07/24 23:30 115/57 L 04/07/24 23:06 100.2 F H 65 16 98 04/07/24 23:00 110/59 L 04/07/24 22:58 66 20 98 30 04/07/24 22:54 100.2 F H 66 20 99 04/07/24 22:30 100.0 F H 69 20 98 04/07/24 22:30 125/65 04/07/24 22:00 123/63 04/07/24 22:00 123/63 04/07/24 22:00 123/63 04/07/24 22:00 99.9 F H 64 20 99 04/07/24 21:48 99.9 F H 64 20 99 Laboratory Results reviewed cbc reviewed chemistry review inr PG Care Time/CCT Total # of Minutes Spent Total Time Spent with Patient: Total time spent is greater than 50% in coordination of care (as documented) at patient's floor/unit and/or counseling patient: Coding Level of Care Code 78010 SUB INP/OBS CARE 3/50MIN Diagnoses Cardiac arrest I46.9 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
--- NOTE | 2024-04-08 10:19 | Critical Care Progress Note ---
Date of Service April 08, 2024 Assessment & Plan (1) Cardiac arrest: (2) Unresponsive: (3) Metabolic acidosis: (4) Coronary artery disease: (5) End of life care: (6) Positive sputum culture for Pseudomonas: Plan 78-year-old male with a past medical history of diabetes, systolic cardiomyopathy, coronary artery disease, peripheral artery disease, COPD and asthma presenting to the hospital due to a cardiac arrest. Neurologic: Unknown downtime, but ROSC obtained in the field. Patient completely unresponsive to commands, but does withdraw to painful stimuli. He does spontaneously lift his arms when he is suctioned. EEG nonspecific without epileptiform activity. MRI brain without acute findings, but chronic lacunar infarcts noted. Severe right and mild left mastoiditis. Repeat MRI at this time. Appreciate neurology input. No evidence of higher cortical functions, but brainstem reflexes intact. Prognosis at this time is quite guarded. He has had intermittent fevers probably due to neurogenic fever. Maintain euglycemia. Head of the bed above 35 degrees. Urine drug screen positive for marijuana. Ammonia normal. TSH normal. Pulmonary: Patient currently intubated for airway protection. On minimal ventilatory support. ABG today with alkalemia. CT chest completed 03/01/2024 revealed no evidence of intrathoracic metastatic disease. 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 Low suspicion pulmonary nodules and pleural-based nodules measuring up to 6 mm were seen. Mild aneurysmal dilation of the ascending thoracic aorta was also seen. Chest x-ray on admission with clear lung gillespie and no evidence of pneumothorax or pneumonia. Cardiovascular: Left heart catheterization 04/05/2025 with diffuse coronary artery disease. Patient with a known history of systolic heart failure. He is maintaining his pressures currently. Maintain maps above 65 mmHg. Patient also has a history of PE and is anticoagulated with warfarin. INR currently 2.0. Echo with an EF of about 10%. Troponins downtrending. Patient also currently with ventricular arrhythmia as he was shocked 3 times by an AED. Will continue amiodarone for the time being given presumed ventricular dysrhythmia. Gastrointestinal: Tube feeds on hold due to high residuals. Patient does have a history of cholelithiasis. No acute evidence of cholangitis at this time. Transaminitis resolving. Pepcid for GI prophylaxis. Renal: Aguirre catheter placed in the ICU. Will monitor urine output closely. Urine output decreased this morning. Maintain potassium above 4 and magnesium above 2. TROY resolving. Renal ultrasound without evidence of obstructive uropathy. Lactic acidosis and metabolic acidosis is resolved. Infectious disease: Sputum culture suggestive of Pseudomonas aeruginosa. White count slightly elevated. MRSA screen was negative. Ceftriaxone started 04/06/2024. Procalcitonin uptrending. Will hold on initiating antipseudomonal antibiotics given that the plan is to transition to comfort measures only. 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 Monitor INR daily. INR remains therapeutic. Endocrine: TSH unremarkable. Maintain euglycemia with insulin drip as needed. Patient with a history of diabetic mellitus. Lines and tubes: Left femoral line placed 04/05/2024. Right femoral arterial line placed 04/06/2024. Aguirre catheter placed 04/05/24. Intubated in the field 04/05/2024. VTE prophylaxis: INR therapeutic at 2.0 CODE STATUS: Patient's brother, Suleman Tsai was able to be contacted overnight by the nocturnal ICU EMILY. I also was able to discuss over the phone with patient's brother Suleman Tsai and patient's [id number]. They both indicate that they would like to transition to comfort measures only has this would be the patient's wishes at this time. This was also previously mentioned by his friend Amanuel that the patient would not want to be sustained on life support in the event of a catastrophic brain injury such as what he has sustained now. I did explicitly asked the patient's brother and [id number] if they have any grievances against having Amanuel present during the end-of-life process. They indicated that they would be willing to have Amanuel be present during the end-of-life process and would even be willing for Amanuel to have the patient's ashes after cremation if this is what Amanuel would be willing to do. Disposition: ICU Discussed on multidisciplinary rounds. I have personally spent 51 minutes of critical care time in the direct managem ent of this patient. This is a life/limb threatening event. This includes time spent evaluating patient, direct bedside care, chart review, placing orders, interpretation of diagnostic studies, discussion with consultants, patient, and family members, as well as other required patient management activities. This time is exclusive of all separately billable procedures, and teaching time and separate from and in addition to any other critical care service time. Thank you for allowing us to participate in the care of this patient. Admission and Anticipated Discharge Date Admission Date: April 05, 2024 Subjective Unfortunately, patient remains unresponsive to commands. Sedation has been weaned off. No meaningful or purposeful movements. Brainstem reflexes intact including corneals, gag reflex and spontaneous respirations. Hemodynamically he remained stable. Review of Systems Review of Systems: Unobtainable due to cognitive status, Unobtainable due to endotracheal tube and Unobtainable due to reduced consciousness Physical Exam Constitutional: + altered mental status and + mechanical ly ventilated Eyes: Pupils pinpoint and minimally reactive to light. Anicteric sclera. ENMT: Endotracheal tube in place. Neck: trachea midline, no thyromegaly Respiratory: Rhonchi noted bilaterally in the upper lung gillespie. Cardiovascular: RRR, no murmur, no edema Chest (Breasts): normal inspection/palpation of breasts Gastrointestinal (Abdomen): normal bowel sounds, soft, nontender, no hepatosplenomegaly Musculoskeletal: no cyanosis or clubbing, extremities motor strength 5/5 Neurologic: Unresponsive and difficult to assess. Occasional myoclonic jerking. Gag reflex intact. Corneals intact. Withdraws from deep nailbed pressure. Upward Babinski bilaterally. Negative cold caloric testing. Psychiatric: Unresponsive Results & Data Results & Data Vital Signs (Past 12 Hours) Vital Signs Temp Pulse Resp BP Pulse Ox O2 Del Method FiO2 04/08/24 08:26 Mechanical Vent 30 04/08/24 08:00 30 04/08/24 07:59 57 L 04/08/24 07:35 58 L 16 100 30 04/08/24 07:16 58 L 04/08/24 06:00 122/65 04/08/24 06:00 36.9 C 58 L 16 100 04/08/24 06:00 122/65 04/08/24 05:33 36.8 C 58 L 16 100 04/08/24 05:30 123/68 04/08/24 05:21 36.8 C 58 L 16 100 04/08/24 05:06 36.8 C 58 L 16 99 04/08/24 05:06 16 30 04/08/24 04:30 36.7 C 57 L 20 99 04/08/24 04:30 133/70 04/08/24 04:30 133/70 04/08/24 04:00 136/68 04/08/24 04:00 36.8 C 57 L 20 99 04/08/24 04:00 30 04/08/24 03:45 36.9 C 56 L 20 99 04/08/24 03:30 132/66 04/08/24 03:30 132/66 04/08/24 03:30 132/66 04/08/24 03:15 37.0 C 54 L 20 99 04/08/24 03:13 55 L 20 100 30 04/08/24 03:00 139/74 04/08/24 03:00 139/74 04/08/24 02:48 37.0 C 56 L 20 99 04/08/24 02:30 134/70 04/08/24 02:30 37.0 C 56 L 20 100 04/08/24 02:06 37.1 C 56 L 20 99 04/08/24 01:33 37.3 C 55 L 20 99 04/08/24 01:30 118/65 04/08/24 01:30 118/65 04/08/24 01:21 37.2 C 61 20 100 04/08/24 01:09 37.4 C 55 L 20 99 04/08/24 00:33 37.5 C 57 L 20 100 04/08/24 00:30 124/67 04/08/24 00:30 124/67 04/08/24 00:21 37.6 C H 56 L 20 99 04/08/24 00:06 37.7 C H 57 L 20 99 04/08/24 00:00 113/62 04/08/24 00:00 113/62 04/08/24 00:00 113/62 04/08/24 00:00 58 L 04/08/24 00:00 30 04/07/24 23:57 37.7 C H 57 L 20 99 04/07/24 23:30 37.9 C H 58 L 20 99 04/07/24 23:30 115/57 L 04/07/24 23:30 115/57 L 04/07/24 23:06 37.9 C H 65 16 98 04/07/24 23:00 110/59 L 04/07/24 22:58 66 20 98 30 04/07/24 22:54 37.9 C H 66 20 99 04/07/24 22:30 37.8 C H 69 20 98 04/07/24 22:30 125/65 Coding Level of Care Code 85126 CRITICAL CARE 1ST 30-74M Diagnoses Cardiac arrest I46.9 Unresponsive R41.89 Metabolic acidosis E87.20 Coronary artery disease I25.10 End of life care Z51.5 Positive sputum culture for Pseudomonas R84.5 Time Spent (min) 51
[2024-04-08 10:48] LABS: Marijuana Quant, GCMS Urine 49 ng/mL (<5)
[2024-04-08] MEDS ORDERED: MoRPHine BOLUS from BAG IV PRN (11:24)
[2024-04-08] MEDS ORDERED: STAT IV Infusion **Titration per Protocol STA (11:24)
[2024-04-08] MEDS ORDERED: ONDANSETRON INJ 2 MG/ML 2 ML VIAL IV PRN (11:24)
[2024-04-08] MEDS ORDERED: LORazepam 2 MG/1 ML VIAL IV PRN (11:24)
[2024-04-08] MEDS ORDERED: PROMETHAZINE 12.5 MG/50.5 ML BAG IV PRN (11:24)
[2024-04-08] MEDS: MoRPHine SULF 100 MG/100 ML BAG IV SCH (13:57)
[2024-04-08] MEDS: GLYCOPYRROLATE 0.2 MG/ML VIAL IV PRN (13:58)
--- NOTE | 2024-04-09 06:26 | Death Pronouncement Note ---
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 They were unresponsive to, and did not withdrawal from, verbal or tactile stimuli. They were unresponsive to corneal, pupillary, and oculocephalic reflexes. On cardiopulmonary exam, they were found to be without detectable carotid pulses, and without spontaneous heart tones or respirations. Time of was pronounced by me on 04/09/2024 at 0621. Attending physician was notified was notified. Next of kin was notified by nursing. Additional Data Attending physician: Oscar Flor MD
--- NOTE | 2024-04-09 11:46 | Discharge Summary ---
Discharge Summary Date of Service April 09, 2024 Principal Dx & Hospital Course #1 = Principal Diagnosis (1) : pt had compassionate extubation as had no meaningful neurologic function after ROSC pronounced at 0621 on 04/09/24 (2) Cardiac arrest: Patient with [id number] cardiac arrest with CPR, shocked with AED x 3 shocks, intubation in the field, and 150 mg amiodarone followed by ROSC Amount of down-time in the field is uncertain Arrived to [facility] as code heart alert Went straight to chemical laboratory technician, lactic acidosis on presentation from decreased perfusion Left heart cath showed unchanged severe three-vessel CAD minimally elevated right and left filling pressures on right heart cath No targets for PCI Chronic HFrEF with further reduction of EF post arrest to 15-20% Head CT negative for acute changes 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 MRI brain x 2 without acute stroke or findings suggestive of anoxic brain injury but concern for latter is very high EEG negative for seizure focus During sedation holidays no significant purposeful movements seen Typically on Coumadin, metoprolol, atorvastatin - all on hold , coumadin was used for history of arterial clot with thrombectomy in past and a PE (3) 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: a1c 7.7% (4) Fever: blood/urine cx's negative BioFire resp panel negative initial lactic acidosis /metabolic acidosis suspected from decreased tissue perfusion (5) Acute kidney injury: likely 2nd ATN in the setting of his cardiac arrest (6) Liposarcoma of peritoneum: s/p right inguinal hernia repair 01/2024 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 had yet to go to tertiary care center to discuss treatment options but based on documentation it was uncertain if patient wanted any Rx for such Plan Hypothyroidism By report patient is estranged from his 2 living siblings Only a friend - Amanuel Webb - is listed in the chart as a customer contact representative (he has been visiting), distant family is not available to come to hospital old notes state he was then in his 20s has no children Admission HPI Per Admitting Provider Patient is a 78-year-old male with a past medical history of HFrEF, ischemic cardiomyopathy, severe multivessel CAD, PAD, mitral regurg, hypertension, type II DM, BPPV, hypothyroidism, newly diagnosed liposarcoma. He presents today via EMS after he was found unresponsive in his car; after CPR, 3 shocks, intubation, and 150mg amiodarone. He was brought in post ROSC as a heart alert, taken to CT (head CT negative), and then taken immediately to the [facility]. Patient was assessed in the ICU after cardiac cath, no PCI placement. He is on ventilator, unresponsive. Pupils are pinpoint, no gag reflex, posturing. Discussed with scorekeeper, to complete seizure workup, 2 Mg Ativan ordered. Patient has no family listed in chart, only a friend listed. [facility] Discharge Exam pt was pronounced by overnight physician Discharge Plan Discharge Items Patient Disposition: Other Date/Time: 04/09/24 06:21 Hospital Stay Data Consultations 04/05/24 14:40 Consult Manager Transmission Routine 04/05/24 16:34 Consult Cardiology Routine 04/07/24 08:16 Consult Neurology Routine Consult Palliative Care Routine Procedures Performed Operation Date: 04/05/24 14:00 Actual Procedures p Cath, Right and Left Heart - Javon Carlton MD s Cineradiography w/Routine Exam - Javon Carlton MD s Placement Art Occlusive Device - Javon Carlton MD Diagnostic Imagining Performed 04/05/24 13:59 CT head/brain wo con Stat 04/05/24 14:01 CL Cath Imgs for PACS use only Stat 04/05/24 14:02 CL Cath Imgs for PACS use only Stat 04/06/24 03:37 MR brain wo con Urgent 04/06/24 11:00 US renal/blad retro comp Urgent 04/07/24 08:24 MRI Brain [MR brain wo con] Routine Total Time Total Time Spent Total Time Spent (In Minutes): less than 30 minutes Coding Level of Care Code 70417 IN/OBS DISCH 30 MIN/LESS Diagnoses R99 Cardiac arrest I46.9 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
== END 2024-04-09 06:34 | disposition expired | DRG 286 ==
LOC: ED 13:54 → CC 14:35 → 1E 14:40 → SUATTDRO 14:40 → 3W 04-08 17:35